=== PATIENT | male | born 1965 | race African-American/Black ===

== ENCOUNTER 2018-11-20 05:33 | Day surgery (SDC) | payer BC, SELFPAY ==
--- NOTE | 2018-09-28 06:28 | HP.PCM_ITS ---
History and Physical Date of Admission: 09/30/18 HISTORY AND PHYSICAL ? Toño Lima 1965 ? REFERRING PHYSICIAN: ??Adam Ralhp MD ? CHIEF COMPLAINT: ??Consult ? HPI: The patient is a 53 year old male referred for endoscopy. ?Toño notes occasional constipation, otherwise denies colon complaints. Patient denies any change in bowel habits, weight changes, blood in stools, black tarry stools or abdominal pain.??NOTES?family history of colon issues, states father had colon cancer. ?The patient notes no upper GI complaints. ? Toño?recalled having a prior colonoscopy in 2006, which was not mentioned in his surgical history in [facility]. ?Review of chart shows attempted colonoscopy in [address] Bennett, which could not be completed due to tortuosity of colon. ?That note mentions plans for a completion barium enema vs referral to another endoscopist, but patient states was not aware of this and denies further follow- up after that procedure. ?His past surgical history is now updated in [facility] to reflect the past attempted procedure. ? Patient's past medical history is significant for hypertension, hyperlipidemia, past history of gastritis and GERD, type II diabetes mellitus, obesity. ?He denies any cardiac or pulmonary complaints, and denies problems with sedation in the past other than recall with his prior attempted endoscopy procedure. ?Patient is a former smoker, no longer smokes or drinks alcohol. ? ? ? PAST?MEDICAL?HISTORY PAST MEDICAL HISTORY Diagnosis Date ? Esophagitis, unspecified ? ? Essential hypertension, benign ? ? Family history of malignant neoplasm of gastrointestinal tract ? ? family history of colon cancer ? Genital herpes ? ? Hemorrhage of rectum and anus ? ? Hypertrophy of breast ? ? Obesity, unspecified ? ? Other and unspecified alcohol dependence, unspecified drinking behavior ? ? ETOH depend. syn. ? Other and unspecified hyperlipidemia ? ? Type II or unspecified type diabetes mellitus without mention of complication, not stated as uncontrolled ? ? Unspecified gastritis and gastroduodenitis without mention of hemorrhage ? ? ? PAST?SURGICAL?HISTORY PAST SURGICAL HISTORY Procedure Laterality Date ? EGD W/O BRSH SPECIMEN W/BX ? 07/20/09 ? PAST SURGICAL HISTORY OF ?LLE cyst ? ? CURRENT?MEDICATIONS ? Current Outpatient Medications: atorvastatin (LIPITOR) 10 mg tablet Take 1 tablet by mouth daily at bedtime. For cholesterol. amLODIPine (NORVASC) 10 mg tablet Take 1 tablet by mouth once daily. metFORMIN (GLUCOPHAGE) 1,000 mg tablet Take 1 tablet by mouth daily with breakfast. lisinopril (ZESTRIL, PRINIVIL) 20 mg tablet Take 1 tablet by mouth once daily. OMEGA 3-VITAMIN E-FISH OIL 700 MG-15 UNIT-1,100 MG CAP Take one(1) tablet daily. ? No current facility-administered medications for this visit.? ? ALLERGIES:?H[place]elnut; Pecans [Other]; [place] ? PERSONAL HISTORY:? SOCIAL?HISTORY Social History ??Socioeconomic History ?Marital status: ?Spouse name: Florencia ?Number of children: 5 ?Years of education: Not on file ?Highest education level: Not on file ??Occupational History ?Employer: [employer] ??Social Needs ?Financial resource strain: Not on file ?Food insecurity: ?Worry: Not on file ?Inability: Not on file ?Transportation needs: ?Medical: Not on file ?Non-medical: Not on file ??Tobacco Use ?Smoking status: Former Smoker ?Quit date: 12/06/1992 ?Years since quittin.7 ?Smokeless tobacco: Never Used ??Substance and Sexual Activity ?Alcohol use: No ?Drug use: No ?Sexual activity: Yes ??Lifestyle ?Physical activity: ?Days per week: Not on file ?Minutes per session: Not on file ?Stress: Not on file ??Relationships ?Social connections: ?Talks on phone: Not on file ?Gets together: Not on file ?Attends baptism service: Not on file ?Active member of club or organization: Not on file ?Attends meetings of clubs or organizations: Not on file ?Relationship status: Not on file ?Intimate partner violence: ?Fear of current or ex partner: Not on file ?Emotionally abused: Not on file ?Physically abused: Not on file ?Forced sexual activity: Not on file ??Other Topics ?Concerns: ?Not on file ??Social History Narrative ?Not on file ? FAMILY HISTORY:? FAMILY?HISTORY FAMILY HISTORY Problem Relation Age of Onset ? Diabetes Mother ? ? Diabetes Father ? ? Colon Cancer Father ? ? REVIEW OF SYMPTOMS: ??The review of systems data was entered by the nurse and reviewed by me ? Nursing Notes: Tyler Patrice ?09/16/2018 ?4:45 PM ?Signed REVIEW OF SYSTEMS: ?General:???The patient denies fatigue, denies weight loss, denies weight gain, denies feeling hot, and denies feelings of cold. ?Eyes: ?The patient denies glaucoma, denies eye injury/surgery, wears glasses or contacts. ?Ear/Nose/Throat: ?The patient NOTES allergies, denies hayfever, denies ear infections, and denies bloody noses. ?Cardiovascular: ?The patient denies chest pain, denies heart disease, denies high blood pressure,denies cardiac stent, denies prior heart attack, denies irregular heart beat, denies high cholesterol, ?NOTES poor circulation, denies heart failure, other cardiac issues, denies claudication, denies cold feet, denies peripheral arterial stent. ?Respiratory: ?The patient denies tuberculosis, denies pneumonia, denies frequent cough, denies pulmonary embolism, denies shortness of breath, and denies coughing up blood. ?Gastrointestinal: ?The patient denies difficulty swallowing, denies acid reflux, denies ulcers, denies vomiting, denies jaundice/hepatitis, denies gallbladder problems, denies black or tarry stools, denies hemorrhoids, denies bleeding from rectum, denies diverticulitis, NOTES constipation, denies diarrhea, denies loss of stool control, and denies hernias. ?Kidney/Bladder: ?The patient denies kidney stones, denies urine infections, and denies bloody urine. ?Skin: ?The patient denies a history of skin cancer, denies bleeding/changing moles, and NOTES a history of skin rash. ?Neurologic: ?The patient denies a history of epilepsy/convulsions, denies headaches, denies head/spinal injuries, and denies stroke/TIA. ?Psychiatric: ?The patient denies psychiatric medications, denies depression, and denies voices, denies substance abuse. ?Endocrine: ?The patient denies thyroid disorders, NOTES diabetes, and denies hormonal problems. ?Hematologic: ?The patient denies a history of bruising, denies bleeding, and denies anemia, denies blood clots. ?Infections: ?The patient denies a history of measles and mumps, denies rheumatic fever, and denies sexually transmitted diseases. ?Musculoskeletal: ?The patient denies back pain/injury, denies back problems, denies sciatica, denies knee/foot trouble, denies arthritis, or denies gout. ? ? When was patient's last Mammogram screening? N/A ? ?Last Colonoscopy: ?2006 ? ? Tyler Ibrahim? I have confirmed and edited as necessary, the PFSH and ROS obtained by others. ? ? PHYSICAL EXAMINATION: ? General: ?The patient is 53 year old male, well nourished, well hydrated in no acute distress. ?The patient is oriented to time, place, and person. ? VITALS:?Blood pressure 144/88, pulse 85, temperature 36.3 ?C (97.3 ?F), temperature source Temporal Artery, height 185.4 cm (6' 1), weight 126.3 kg (278 lb 6.4 oz), SpO2 98 %.?Body mass index is 36.73 kg/m?.? ? HEENT: ?Normal cephalic, ataumatic, pupils are equally round, sclera are anicteric, mucous membranes are moist, oropharynx is clear. ?Neck has no masses, asymmetry or lymphadenopathy. ? ? Respiratory: ?Clear to auscultation and percussion. ?Normal respiratory excursion and pattern. ? Cardiac: ?Examination is regular rate and rhythm. ?Normal S1/S2 ? Abdominal exam: ?Soft, nontender, ?with no palpable masses. ?No hepatosplenomegaly. ?No palpable hernias. ? Extremities: ?no clubbing, cyanosis or edema. ?No adenopathy. ? LABORATORY VALUES: As Noted ? RADIOLOGIC STUDIES: ?As Noted ? ? Assessment ? IMPRESSION:?encounter for screening colonoscopy, history of tortuous colon with prior incomplete colonoscopy attempt, family history of colon cancer ? PLAN: ?I have reviewed my findings with the surgeon. ?Will plan for lower?endoscopy. ??We discussed the risks and benefits of the planned endoscopy. ?I have informed the patient that complications can occur including failure to complete the endoscopy and perforation. ?The patient had the opportunity to ask questions concerning the planned endoscopy. ?My staff has also explained the procedure to the patient in understandable terms and has given the patient printed material concerning the procedure. ?The patient freely consents to surgery. ? I plan to use?Golytely?bowel preparation ? We will plan for Monitored Anesthetic Care.?due to tortuous colon and recall from prior procedure ? ? Diagnoses:?(Z12.11) Encounter for screening for malignant neoplasm of colon ?(primary encounter diagnosis) (Z80.0) Family history of colon cancer (Q43.8) Tortuous colon ? ? Aparna Rojas PA-C
[2018-11-20 05:56] VITALS: BP 153/83; PULSE 86; RESP 16; TEMP 36.1; O2SAT 100; BMI 36.6
[2018-11-20] MEDS: Lactated Ringers 1,000 ML 75 ML IV (06:43)
[2018-11-20 07:30] VITALS: BP 115/70; BP 153/83; PULSE 71; RESP 16; TEMP 36.8; O2SAT 99
--- NOTE | 2018-11-20 07:32 | OP.ENDO_ITS ---
11/20/2018 Adam Ralph [address] [place] [address] Re : Colonoscopy procedure for Toño Lima Dear Dr. Ralph This procedure was performed on Tuesday, November 20, 2018. My impressions and recommendations are as follows: Impressions : - Preparation of the colon was fair. - The entire examined colon is normal on direct and retroflexion views. - No specimens collected. Recommendations : - Discharge patient to home. - Resume previous diet. - Continue present medications. - Repeat colonoscopy in 10 years for screening purposes. My findings are described in the full procedure note, which is enclosed. If I can be of further assistance, please feel free to contact me at Doctor phone number(s): , Work: . Sincerely, Dieudonne Chong MD 11/20/2018 7:32:21 AM This report has been signed electronically.
[2018-11-20 07:35] VITALS: BP 123/78; BP 153/83; PULSE 67; RESP 18; O2SAT 100
[2018-11-20 07:40] VITALS: BP 115/86; BP 153/83; PULSE 66; RESP 18; O2SAT 100
[2018-11-20 07:45] VITALS: BP 117/71; BP 153/83; PULSE 66; RESP 18; TEMP 36.7; O2SAT 100
[2018-11-20 08:30] VITALS: BP 153/83
== END 2018-11-20 08:30 | disposition home or self-care (01) ==
LOC: EN 05:34 → AC 05:37
PROVIDERS: Family Provider Family Medicine; PCP Family Medicine; Referring Provider Family Medicine; Visit Provider Surgery
PROC: 0DJD8ZZ Inspection of Lower Intestinal Tract, Via Natural or Artificial Opening Endoscopic (ICD-10-PCS; CPT 45378; principal; 2018-11-20 06:25)
DX: Z12.11 Encounter for screening for malignant neoplasm of colon (principal); K59.00 Constipation, unspecified; I10 Essential (primary) hypertension; E78.5 Hyperlipidemia, unspecified; E11.9 Type 2 diabetes mellitus without complications; K21.9 Gastro-esophageal reflux disease without esophagitis; K21.0 Gastro-esophageal reflux disease with esophagitis; Z80.0 Family history of malignant neoplasm of digestive organs; Z87.891 Personal history of nicotine dependence; Z79.84 Long term (current) use of oral hypoglycemic drugs; Z79.899 Other long term (current) drug therapy
CPT/HCPCS: 45378; J7120; J2405

== ENCOUNTER 2019-09-04 13:30 | Outpatient (RCR) | payer BC, SELFPAY ==
[2019-08-21 14:15] VITALS: BP 133/83; PULSE 66; RESP 20; TEMP 36.7; BMI 36.8
--- NOTE | 2019-08-21 17:01 | PCM.WC.HP ---
(1) Nonhealing ulcer of left lower extremity with fat layer exposed Status: Acute Current Visit: Yes Code(s): L97.922 - Non-pressure chronic ulcer of unspecified part of left lower leg with fat layer exposed (2) PVD (peripheral vascular disease) Status: Acute Current Visit: Yes Code(s): I73.9 - Peripheral vascular disease, unspecified (3) Diabetes Status: Acute Current Visit: Yes Code(s): E11.9 - Type 2 diabetes mellitus without complications (4) Hypertension Status: Chronic Current Visit: Yes Code(s): I10 - Essential (primary) hypertension History of Present Illness Date of Service: 08/21/19 Chief Complaint: Nonhealing ulcer left lower extremity x3 weeks History of Wound: This is a 54-year-old male who presents to the wound healing center today with complaint of nonhealing ulceration to the left lower extremity x3 weeks. He has a past medical history as listed above. The patient states that he is unclear if he injured his left lower extremity, however noticed an open ulceration approximately 3 weeks ago. He is unclear whether or not there is ever an injury. He does state that he has had issues with nonhealing wounds to his lower legs in the past and that he has had varicose vein ablations. He does have a history of PVD. He has been covering the site with antibiotic ointment and gauze without much improvement. He denies any systemic or localized signs of infection at this time. Denies any other aggravating relieving factors. All other systems reviewed and negative with exception of those listed above. Past Medical History Past Medical History: Chronic Problems Hypertension (Chronic) Allergies/Adverse Reactions: Allergies nut - unspecified Allergy (Verified 08/21/19 14:35) Anaphylaxis PECANS Allergy (Uncoded 11/19/18 09:50) Anaphylaxis Home Medications: Ambulatory Orders Medication Instructions Recorded Amlodipine [Norvasc] 10 mg PO DAILY 04/12/15 Lisinopril [Zestril] 20 mg PO DAILY 04/12/15 Atorvastatin Calcium [Lipitor] 10 mg PO QHS 11/19/18 Smoking Status: Former smoker Review of Systems Constitutional: Denies: Chills, Fever, Weight Change Eyes: Denies: Pain, Vision Change HEENT: Denies: Difficulty Hearing, Difficulty Swallowing, Sinus Congestion Cardiovascular: Denies: Chest Pain, Palpitations Respiratory: Denies: Cough, Shortness of Breath Gastrointestinal: Denies: Diarrhea, Nausea, Vomiting Genitourinary: Denies: Dysuria, Hematuria Skin: Reports: Wounds - See HPI Endocrine: Denies: Heat/ Cold Intolerance, Polydipsia, Polyuria Hematologic/ Lymphatic: Denies: Easy Bruising, Easy Bleeding - Physical Exam Vital Signs Temp Pulse Resp BP 98.1 F 66 20 H 133/83 H 08/21/19 14:15 08/21/19 14:15 08/21/19 14:15 08/21/19 14:15 General: Alert, Oriented x3, Cooperative, No apparent distress HEENT: Atraumatic, PERRLA, EOMI Neck: Supple, No JVD Lungs: Clear to auscultation, Normal air movement, No rhonchi, No wheeze Cardiovascular: Regular rate, Regular Rhythm Abdomen: Soft, Non Tender Extremities: Capillary Refill Less than 3 Seconds, Edema - +1 bilateral lower extremity edema, Peripheral Pulses Normal Skin: Ulcer/ Wound - Nonhealing ulceration present to left lower extremity with adherent slough, no purulent drainage though site is very tender on exam Wound Measurements and Assessment WC - Nurse 1 - General Ulcer Measurement Start: 08/21/19 14:06 Freq: Status: Active Protocol: Activity Type Activity Date Activity User E-Sign Co-Sign Detail Recorded Client Recorded Date Recorded By Document 08/21/19 14:15 DL [id number] 08/21/19 14:33 DL 08/21/19 14:15 Wound Center Nurse 1 [Ulcer Assessment] #1 L Med LE -Current Size (cm) - Length 2 -Current Size (cm) - Width 3.8 -Current Size (cm) - Depth 0.1 -Total Square Cm 7.6 -Photo Taken Yes -Exudate Amt Small -Exudate Type Serosanguineous -Wound Margin Distinct, Outline Attached -Granulation Amt Medium (34-66%) -Granulation Quality Red -Necrosis Amt Medium (34-66%) -Necrotic Tissue Type Adherent Slough -Structure Exposed N/A -Texture (Charissa-wound Skin Appearance) Localized Edema ,Scarring -Moisture (Charissa-wound Skin Appearance Dry/Scaly ) -Color (Charissa-wound Skin Appearance) Hemosiderin Staining -Temperature (Charissa-wound Skin No Abnormality Appearance) (Pt Warm) -Tenderness on Palpation (Charissa-wound No Skin Appearance) -Ulcer Cleansing Wound Cleanser -Foul Odor after Cleansing No -Anesthetic Used 4% Lidocaine Solution [Edema Assessment] -Right Calf (cm) 41 -Right Ankle (cm) 23.5 -Left Calf (cm) 41 -Left Ankle (cm) 26 WC - Nurse 2 - General Ulcer CM Notes Start: 08/21/19 14:06 Freq: Status: Active Protocol: Activity Type Activity Date Activity User E-Sign Co-Sign Detail Recorded Client Recorded Date Recorded By Document 08/21/19 15:06 MW [id number] 08/21/19 15:15 MW 08/21/19 15:06 Wound Center Nurse 2 [Procedure/Treatment] #1 L Med LE -Time 15:06 -Correct Patient Yes -Correct Side, Site, Position Yes -Correct Procedure Yes -Procedure Performed Yes -Type of Procedure Debridement -Clinical Debridement Subcutaneous -Post Debridement Size (cm) - Length 3.0 -Post Debridement Size (cm) - Width 4.5 -Post Debridement Size (cm) - Depth 0.2 -Total Square Cm 13.50 -Wound/Ulcer Outcome Not Healed -Ulcer Cleansing Rinsed/ Irrigated with Saline -Foul Odor after Cleansing No -Bioengineered Tissue No -Bleeding Controlled with Pressure -Offloading No -Treatment Response Procedure Tolerated Well [See Physician Procedure note for Specifics] Pain Scale: 0-10 Numeric [Pain] -Is Patient Pain Free? Yes Musculoskeletal: No Tenderness to Palpation of Joints or Extremities, No Muscle Wasting Neurological: Neuro grossly intact Psych/Mental Status: Normal Affect, Appropriate, Alert and oriented to time, place, person, mood and affect Debridement Note Post-Debridement Measurements/Treatment WC - Nurse 2 - General Ulcer CM Notes Start: 08/21/19 14:06 Freq: Status: Active Protocol: Activity Type Activity Date Activity User E-Sign Co-Sign Detail Recorded Client Recorded Date Recorded By Document 08/21/19 15:06 MW [id number] 08/21/19 15:15 MW 08/21/19 15:06 Wound Center Nurse 2 #1 L Med LE -Time 15:06 -Correct Patient Yes -Correct Side, Site, Position Yes -Correct Procedure Yes -Procedure Performed Yes -Type of Procedure Debridement -Clinical Debridement Subcutaneous -Post Debridement Size (cm) - Length 3.0 -Post Debridement Size (cm) - Width 4.5 -Post Debridement Size (cm) - Depth 0.2 -Total Square Cm 13.50 -Wound/Ulcer Outcome Not Healed -Ulcer Cleansing Rinsed/ Irrigated with Saline -Foul Odor after Cleansing No -Bioengineered Tissue No -Bleeding Controlled with Pressure -Offloading No -Treatment Response Procedure Tolerated Well Pain Scale: 0-10 Numeric Is Patient Pain Free? Yes Wound debrided: Left lower extremity venous leg ulcer Laterality: Left Type of Debridement: Excisional debridement Anesthesia Used: 5% Lidocaine Gel Depth: Down to and including healthy tissue, in the subcutaneous layer Percentage of wound debrided: 100 Instrument Used: 5mm curette Tissue Removed: Slough and devitalized tissue Severity: Fat Layer Exposed Amount of bleeding with debridement: Mild Bleeding Controlled with: Pressure Patient tolerated procedure well Assessment/Plan Active Problems PVD (peripheral vascular disease) (Acute) Nonhealing ulcer of left lower extremity with fat layer exposed (Acute) Diabetes (Acute) Hypertension (Chronic) Assessment: See above diagnoses Plan: The patient was seen and examined at the wound center today and was updated on the plan of care. A subcutaneous debridement was performed today. The patient tolerated the procedure well. The patients wound care will consist of: Application of silver cell moistened cover with gauze change daily, double layer Tubigrip's for compression. Wound cultures were collected today. Baseline bloodwork and vascular studies will be held at this time, reconsider if no significant wound improvement. Patient educated on the importance of diet on wound healing and instructed to increase protein and vitamin C intake. Patient verbalized understanding. given the delayed wound healing will apply for puraply AM and after 4 weeks of standard wound care will apply for advanced skin substitute if necessary. Patient has been advised to elevate lower extremities as much as possible. Elevation is to be implemented during daytime hours and legs are to be elevated to heart level, or higher, as much as possible. Prolonged idle sitting has been discouraged. Activity and ambulation has been encouraged. Patient will follow up at wound healing center in one week or sooner if needed. This note was generated with [employer]ation software. It may contain incorrect words, spelling, and punctuation that were not noted in checking the note before signing. Office Visits / Consults: [id number] OV L4 New [id number]: [id number] Iman subq tissue 20 sq cm/<
[2019-08-28 13:22] VITALS: BP 143/79; PULSE 75; RESP 20; TEMP 36.9; BMI 36.8
--- NOTE | 2019-08-28 16:31 | PN.PCM_ITS ---
(1) Venous stasis ulcer of left lower leg with edema of left lower leg Status: Acute Current Visit: Yes Code(s): I83.029 - Varicose veins of left lower extremity with ulcer of unspecified site; I83.892 - Varicose veins of left lower extremity with other complications; L97.929 - Non-pressure chronic ulcer of unspecified part of left lower leg with unspecified severity; R60.9 - Edema, unspecified Comment: fat layer exposed (2) Nonhealing ulcer of left lower extremity with fat layer exposed Status: Acute Current Visit: Yes Code(s): L97.922 - Non-pressure chronic ulcer of unspecified part of left lower leg with fat layer exposed (3) PVD (peripheral vascular disease) Status: Acute Current Visit: Yes Code(s): I73.9 - Peripheral vascular disease, unspecified (4) Diabetes Status: Acute Current Visit: Yes Code(s): E11.9 - Type 2 diabetes mellitus without complications (5) Hypertension Status: Chronic Current Visit: Yes Code(s): I10 - Essential (primary) hypertension Type of Wound Date of Service: 08/28/19 Chief Complaint: Nonhealing ulcer left lower extremity x4 weeks History of Wound: This is a 54-year-old male who presents to the wound healing center today with complaint of nonhealing ulceration to the left lower extremity x4 weeks. He has a past medical history as listed above. The patient states that he is unclear if he injured his left lower extremity, h owever noticed an open ulceration approximately 3 weeks ago. He is unclear whether or not there is ever an injury. He does state that he has had issues with nonhealing wounds to his lower legs in the past and that he has had varicose vein ablations. He does have a history of PVD. He has been covering the site with antibiotic ointment and gauze without much improvement. He denies any systemic or localized signs of infection at this time. Denies any other aggravating relieving factors. All other systems reviewed and negative with exception of those listed above. Progress of Wound: 08/28/2019?wound cultures were reviewed and showed Citrobacter and anaerobic bacteria, patient was previously placed on ciprofloxacin and Augmentin and instructed on starting a probiotic. Unfortunately he only picked up this ciprofloxacin. States that wound is still painful, overall wound size is improving however. - Physical Exam Vital Signs Temp Pulse Resp BP 98.4 F 75 20 H 143/79 H 08/28/19 13:22 08/28/19 13:22 08/28/19 13:22 08/28/19 13:22 General: Alert, Oriented x3, Cooperative, No apparent distress HEENT: Atraumatic Oral: Moist Mucosa Lungs: Clear to auscultation, Normal air movement Cardiovascular: Regular rate Abdomen: Soft, Non Tender, Obese Extremities: No clubbing, No cyanosis, Edema - Generalized bilateral lower extremity edema, Peripheral Pulses Normal Skin: Ulcer/ Wound - Ulceration to left lower extremity with adherent slough, no signs of obvious infection at this time, site is tender to touch no warmth or streaking noted Wound Measurements and Assessment WC - Nurse 1 - General Ulcer Measurement Start: 08/21/19 14:06 Freq: Status: Active Protocol: Activity Type Activity Date Activity User E-Sign Co-Sign Detail Recorded Client Recorded Date Recorded By Document 08/28/19 13:22 DL [id number] 08/28/19 13:29 DL 08/28/19 13:22 Wound Center Nurse 1 [Ulcer Assessment] #1 L Med LE -Current Size (cm) - Length 2.2 -Current Size (cm) - Width 2.4 -Current Size (cm) - Depth 0.2 -Total Square Cm 5.28 -Photo Taken No -Exudate Amt Small -Exudate Type Serosanguineous -Wound Margin Distinct, Outline Attached -Granulation Amt Small (1-33%) -Granulation Quality [place] -Necrosis Amt Large (67-100%) -Necrotic Tissue Type Adherent Slough -Structure Exposed N/A -Texture (Charissa-wound Skin Appearance) Scarring -Moisture (Charissa-wound Skin Appearance No Abnormality, ) Dry/Scaly -Color (Charissa-wound Skin Appearance) Hemosiderin Staining -Temperature (Charissa-wound Skin No Abnormality Appearance) (Pt Warm) -Tenderness on Palpation (Charissa-wound No Skin Appearance) -Ulcer Cleansing Rinsed/ Irrigated with Saline -Foul Odor after Cleansing No -Anesthetic Used 4% Lidocaine Solution [Edema Assessment] -Left Calf (cm) 39.3 -Left Ankle (cm) 24.5 WC - Nurse 2 - General Ulcer CM Notes Start: 08/21/19 14:06 Freq: Status: Active Protocol: Activity Type Activity Date Activity User E-Sign Co-Sign Detail Recorded Client Recorded Date Recorded By Document 08/28/19 14:07 PL [id number] 08/28/19 14:08 PL 08/28/19 14:07 Wound Center Nurse 2 [Procedure/Treatment] #1 L Med LE -Time 14:04 -Correct Patient Yes -Correct Side, Site, Position Yes -Correct Procedure Yes -Procedure Performed Yes -Type of Procedure Debridement -Clinical Debridement Subcutaneous -Post Debridement Size (cm) - Length 2.5 -Post Debridement Size (cm) - Width 2.5 -Post Debridement Size (cm) - Depth 0.2 -Total Square (cm) 6.25 -Wound/Ulcer Outcome Not Healed -Ulcer Cleansing Rinsed/ Irrigated with Saline -Foul Odor after Cleansing No -Bleeding Controlled with Pressure -Treatment Response Procedure Tolerated Well [See Physician Procedure note for Specifics] Pain Scale: 0-10 Numeric [Pain] -Is Patient Pain Free? Yes Neurological: Neuro grossly intact Psych/Mental Status: Normal Affect, Appropriate, Alert and oriented to time, place, person, mood and affect Debridement Note Post-Debridement Measurements/Treatment WC - Nurse 2 - General Ulcer CM Notes Start: 08/21/19 14:06 Freq: Status: Active Protocol: Activity Type Activity Date Activity User E-Sign Co-Sign Detail Recorded Client Recorded Date Recorded By Document 08/21/19 15:06 MW [id number] 08/21/19 15:15 MW Document 08/28/19 14:07 PL [id number] 08/28/19 14:08 PL 08/21/19 08/28/19 15:06 14:07 Wound Center Nurse 2 #1 L Med LE -Time 15:06 14:04 -Correct Patient Yes Yes -Correct Side, Site, Position Yes Yes -Correct Procedure Yes Yes -Procedure Performed Yes Yes -Type of Procedure Debridement Debridement -Clinical Debridement Subcutaneous Subcutaneous -Post Debridement Size (cm) - Length 3.0 2.5 -Post Debridement Size (cm) - Width 4.5 2.5 -Post Debridement Size (cm) - Depth 0.2 0.2 -Total Square (cm) 13.50 6.25 -Wound/Ulcer Outcome Not Healed Not Healed -Ulcer Cleansing Rinsed/ Rinsed/ Irrigated with Irrigated with Saline Saline -Foul Odor after Cleansing No No -Bioengineered Tissue No -Bleeding Controlled with Pressure Pressure -Offloading No -Treatment Response Procedure Procedure Tolerated Well Tolerated Well Pain Scale: 0-10 Numeric Is Patient Pain Free? Yes Yes Wound debrided: Left venous leg ulcer Laterality: Left Type of Debridement: Excisional debridement Anesthesia Used: 5% Lidocaine Gel Depth: Down to and including healthy tissue, in the subcutaneous layer Percentage of wound debrided: 100 Instrument Used: 5mm curette Tissue Removed: Slough and devitalized tissue Severity: Fat Layer Exposed Amount of bleeding with debridement: Mild Bleeding Controlled with: Pressure Patient tolerated procedure well Assessment/Plan Active Problems PVD (peripheral vascular disease) (Acute) Nonhealing ulcer of left lower extremity with fat layer exposed (Acute) Diabetes (Acute) Hypertension (Chronic) Venous stasis ulcer of left lower leg with edema of left lower leg (Acute) fat layer exposed Assessment: See above diagnoses Plan: The patient was seen and examined at the wound center today and was updated on the plan of care. A subcutaneous debridement was performed today. The patient tolerated the procedure well. The patients wound care will consist of: Application of silver cell moistened cover with gauze change daily, double layer Tubigrip's for compression. Wound cultures were collected by her and reviewed with the patient, he was instructed to take both of his antibiotics and take his probiotic. Baseline bloodwork and vascular studies will be held at this time, reconsider if no significant wound improvement. Patient educated on the importance of diet on wound healing and instructed to increase protein and vitamin C intake. Patient verbalized understanding. given the delayed wound healing and venous component of his ulcer in fact that it has been now more than 4 weeks with out substantial improvement, will apply for advanced skin substitute . Patient has been advised to elevate lower extremities as much as possible. Elevation is to be implemented during daytime hours and legs are to be elevated to heart level, or higher, as much as possible. Prolonged idle sitting has been discouraged. Activity and ambulation has been encouraged. Patient will follow up at wound healing center in one week or sooner if needed. This note was generated with [employer] dictation software. It may contain incorrect words, spelling, and punctuation that were not noted in checking the note before signing. [id number]: [id number] Iman subq tissue 20 sq cm/<
[2019-09-04 13:46] VITALS: BP 139/86; PULSE 98; RESP 18; TEMP 36.3; O2SAT 97; BMI 36.8
--- NOTE | 2019-09-04 18:49 | PN.PCM_ITS ---
(1) Venous stasis ulcer of left lower leg with edema of left lower leg Status: Acute Code(s): I83.029 - Varicose veins of left lower extremity with ulcer of unspecified site; I83.892 - Varicose veins of left lower extremity with other complications; L97.929 - Non-pressure chronic ulcer of unspecified part of left lower leg with unspecified severity; R60.9 - Edema, unspecified Comment: fat layer exposed (2) Nonhealing ulcer of left lower extremity with fat layer exposed Status: Acute Code(s): L97.922 - Non-pressure chronic ulcer of unspecified part of left lower leg with fat layer exposed (3) PVD (peripheral vascular disease) Status: Acute Code(s): I73.9 - Peripheral vascular disease, unspecified (4) Diabetes Status: Acute Code(s): E11.9 - Type 2 diabetes mellitus without complications (5) Hypertension Status: Chronic Code(s): I10 - Essential (primary) hypertension Type of Wound Date of Service: 09/04/19 Chief Complaint: Nonhealing ulcer left lower extremity x4 weeks History of Wound: This is a 54-year-old male who presents to the wound healing center today with complaint of nonhealing ulceration to the left lower extremity x4 weeks. He has a past medical history as listed above. The patient states that he is unclear if he injured his left lower extremity, however noticed an open ulceration approximately 3 weeks ago. He is unclear whether or not there is ever an injury. He does state that he has had issues with nonhealing wounds to his lower legs in the past and that he has had uriel icose vein ablations. He does have a history of PVD. He has been covering the site with antibiotic ointment and gauze without much improvement. He denies any systemic or localized signs of infection at this time. Denies any other aggravating relieving factors. All other systems reviewed and negative with exception of those listed above. Progress of Wound: 08/28/2019?wound cultures were reviewed and showed Citrobacter and anaerobic bacteria, patient was previously placed on ciprofloxacin and Augmentin and instructed on starting a probiotic. Unfortunately he only picked up this ciprofloxacin. States that wound is still painful, overall wound size is improving however. 09/03- site still painful, otherwise no new concerns, repeat cultures today - Physical Exam Vital Signs Temp Pulse Resp BP Pulse Ox 97.4 F L 98 18 139/86 H 97 09/04/19 13:46 09/04/19 13:46 09/04/19 13:46 09/04/19 13:46 09/04/19 13:46 General: Alert, Oriented x3, Cooperative, No apparent distress HEENT: Atraumatic Oral: Moist Mucosa Lungs: Clear to auscultation Cardiovascular: Regular rate Abdomen: Soft, Non Tender, Obese Extremities: No clubbing, No cyanosis, Edema - generalized BLLE edema, Peripheral Pulses Normal Skin: Ulcer/ Wound - ulceration to left lower extremity with adherant slough, no signs of infection at this time Wound Measurements and Assessment WC - Nurse 2 - General Ulcer CM Notes Start: 08/21/19 14:06 Freq: Status: Active Protocol: Activity Type Activity Date Activity User E-Sign Co-Sign Detail Recorded Client Recorded Date Recorded By Document 09/04/19 14:34 MW [id number] 09/04/19 14:38 MW 09/04/19 14:34 Wound Center Nurse 2 [Procedure/Treatment] #1 L Med LE -Time 14:34 -Correct Patient Yes -Correct Side, Site, Position Yes -Correct Procedure Yes -Procedure Performed Yes -Type of Procedure Debridement -Clinical Debridement Subcutaneous -Post Debridement Size (cm) - Length 2.6 -Post Debridement Size (cm) - Width 2.6 -Post Debridement Size (cm) - Depth 0.2 -Total Square (cm) 6.76 -Wound/Ulcer Outcome Not Healed -Ulcer Cleansing Rinsed/ Irrigated with Saline -Foul Odor after Cleansing No -Bioengineered Tissue No -Bleeding Controlled with Pressure -Offloading No -Treatment Response Procedure Tolerated Well [See Physician Procedure note for Specifics] Musculoskeletal: No Tenderness to Palpation of Joints or Extremities Neurological: Neuro grossly intact Psych/Mental Status: Normal Affect, Appropriate, Alert and oriented to time, place, person, mood and affect Debridement Note Post-Debridement Measurements/Treatment WC - Nurse 2 - General Ulcer CM Notes Start: 08/21/19 14:06 Freq: Status: Active Protocol: Activity Type Activity Date Activity User E-Sign Co-Sign Detail Recorded Client Recorded Date Recorded By Document 08/21/19 15:06 MW [id number] 08/21/19 15:15 MW Document 08/28/19 14:07 PL [email or web address] 08/28/19 14:08 PL Document 09/04/19 14:34 MW [id number] 09/04/19 14:38 MW 08/21/19 08/28/19 09/04/19 15:06 14:07 14:34 Wound Center Nurse 2 #1 L Med LE -Time 15:06 14:04 14:34 -Correct Patient Yes Yes Yes -Correct Side, Site, Position Yes Yes Yes -Correct Procedure Yes Yes Yes -Procedure Performed Yes Yes Yes -Type of Procedure Debridement Debridement Debridement -Clinical Debridement Subcutaneous Subcutaneous Subcutaneous -Post Debridement Size (cm) - Length 3.0 2.5 2.6 -Post Debridement Size (cm) - Width 4.5 2.5 2.6 -Post Debridement Size (cm) - Depth 0.2 0.2 0.2 -Total Square (cm) 13.50 6.25 6.76 -Wound/Ulcer Outcome Not Healed Not Healed Not Healed -Ulcer Cleansing Rinsed/ Rinsed/ Rinsed/ Irrigated with Irrigated with Irrigated with Saline Saline Saline -Foul Odor after Cleansing No No No -Bioengineered Tissue No No -Bleeding Controlled with Pressure Pressure Pressure -Offloading No No -Treatment Response Procedure Procedure Procedure Tolerated Well Tolerated Well Tolerated Well Pain Scale: 0-10 Numeric Is Patient Pain Free? Yes Yes Wound debrided: VLU left lower extremity Laterality: Left Type of Debridement: Excisional debridement Anesthesia Used: 5% Lidocaine Gel, - - 2 percent lidocain injection 2 ml Depth: Down to and including healthy tissue, in the subcutaneous layer Percentage of wound debrided: 100 Instrument Used: 5mm curette Tissue Removed: slough and devitalized tissue Severity: Fat Layer Exposed Amount of bleeding with debridement: Mild Bleeding Controlled with: Pressure Patient tolerated procedure well Assessment/Plan Assessment: See above diagnoses Plan: The patient was seen and examined at the wound center today and was updated on the plan of care. A subcutaneous debridement was performed today. The patient tolerated the procedure well. The patients wound care will consist of: Application of silver cell moistened cover with adaptic and 3m wrap for compression. Wound cultures were collected again today due to the continued pain, he previously completed both antibiotics and take his probiotic. Baseline bloodwork and vascular studies will be held at this time, reconsider if no significant wound improvement. Patient educated on the importance of diet on wound healing and instructed to increase protein and vitamin C intake. Patient verbalized understanding. given the delayed wound healing and venous component of his ulcer in fact that it has been now more than 4 weeks with out substantial improvement, will apply for advanced skin substitute . Patient has been advised to elevate lower extremities as much as possible. Elevation is to be implemented during daytime hours and legs are to be elevated to heart level, or higher, as much as possible. Prolonged idle sitting has been discouraged. Activity and ambulation has been encouraged. Patient will follow up at wound healing center in one week or sooner if needed. This note was generated with [employer] dictation software. It may contain incorrect words, spelling, and punctuation that were not noted in checking the note before signing. [id number]: [id number] Iman subq tissue 20 sq cm/<
== END 2019-09-05 23:59 ==
LOC: WC 13:30
PROVIDERS: PCP Family Medicine; Referring Provider Family Medicine; Visit Provider Nurse Practitioner Family
DX: L97.922 Non-pressure chronic ulcer of unspecified part of left lower leg with fat layer exposed (principal); I73.9 Peripheral vascular disease, unspecified; I10 Essential (primary) hypertension; E11.9 Type 2 diabetes mellitus without complications; Z87.891 Personal history of nicotine dependence; I83.029 Varicose veins of left lower extremity with ulcer of unspecified site; I83.892 Varicose veins of left lower extremity with other complications
CPT/HCPCS: 11042; 29581; 87070; 87075; 87077; 87186; 87205; 99213; G0463

== ENCOUNTER 2019-10-02 14:00 | Outpatient (RCR) | payer BC, SELFPAY ==
[2019-09-06 00:38] VITALS: BP 139/86; PULSE 98; RESP 18; TEMP 36.3; O2SAT 97
[2019-09-08 14:51] VITALS: BP 162/82; PULSE 93; RESP 16; TEMP 36.9; BMI 36.8
[2019-09-11 14:15] VITALS: BP 149/82; PULSE 84; RESP 20; TEMP 36.8; BMI 36.8
--- NOTE | 2019-09-12 07:57 | PN.PCM_ITS ---
(1) Venous stasis ulcer of left lower leg with edema of left lower leg Status: Acute Current Visit: Yes Code(s): I83.029 - Varicose veins of left lower extremity with ulcer of unspecified site; I83.892 - Varicose veins of left lower extremity with other complications; L97.929 - Non-pressure chronic ulcer of unspecified part of left lower leg with unspecified severity; R60.9 - Edema, unspecified Comment: fat layer exposed (2) Diabetes Status: Acute Current Visit: No Code(s): E11.9 - Type 2 diabetes mellitus without complications (3) Nonhealing ulcer of left lower extremity with fat layer exposed Status: Acute Current Visit: No Code(s): L97.922 - Non-pressure chronic ul cer of unspecified part of left lower leg with fat layer exposed (4) PVD (peripheral vascular disease) Status: Acute Current Visit: No Code(s): I73.9 - Peripheral vascular disease, unspecified (5) Hypertension Status: Chronic Current Visit: No Code(s): I10 - Essential (primary) hypertension Type of Wound Date of Service: 09/11/19 Chief Complaint: Nonhealing ulcer left lower extremity x4 weeks History of Wound: This is a 54-year-old male who presents to the wound healing center today with complaint of nonhealing ulceration to the left lower extremity x4 weeks. He has a past medical history as listed above. The patient states that he is unclear if he injured his left lower extremity, however noticed an open ulceration approximately 3 weeks ago. He is unclear whether or not there is ever an injury. He does state that he has had issues with nonhealing wounds to his lower legs in the past and that he has had varicose vein ablations. He does have a history of PVD. He has been covering the site with antibiotic ointment and gauze without much improvement. He denies any systemic or localized signs of infection at this time. Denies any other aggravating relieving factors. All other systems reviewed and negative with exception of those listed above. Progress of Wound: 08/28/2019?wound cultures were reviewed and showed Citrobacter and anaerobic bacteria, patient was previously placed on ciprofloxacin and Augmentin and instructed on starting a probiotic. Unfortunately he only picked up this ciprofloxacin. States that wound is still painful, overall wound size is improving however. 09/11/2019?wound cultures were reviewed and showed Citrobacter and anaerobic bacteria again, patient placed back on Cipro and Augmentin which was sensitive, also advised to continue with probiotic. Patient still notes pain in his wound. First application of Apligraf today, tolerated the 3M wraps well.FMLA forms to be filled out as patient cannot work on his feet due to the pain from the wound. He will be released to work once his wound is healed and or his pain diminishes. - Physical Exam Vital Signs Temp Pulse Resp BP Pulse Ox 98.3 F 84 20 H 149/82 H 97 09/11/19 14:15 09/11/19 14:15 09/11/19 14:15 09/11/19 14:15 09/06/19 00:38 General: Alert, Oriented x3, Cooperative, No apparent distress HEENT: Atraumatic Oral: Moist Mucosa Lungs: Clear to auscultation, Normal air movement Cardiovascular: Regular rate, Regular Rhythm, Normal S1, Normal S2 Abdomen: Soft, Non Tender Extremities: No clubbing, No cyanosis, No edema, Peripheral Pulses Normal Skin: Ulcer/ Wound - Nonhealing ulcer to left lower extremity with no signs of obviousInfection at this time Wound Measurements and Assessment WC - Nurse 1 - General Ulcer Measurement Start: 09/08/19 14:51 Freq: Status: Active Protocol: Activity Type Activity Date Activity User E-Sign Co-Sign Detail Recorded Client Recorded Date Recorded By Document 09/11/19 14:15 DL [id number] 09/11/19 14:24 DL 09/11/19 14:15 Wound Center Nurse 1 [Ulcer Assessment] #1 L Med LE -Current Size (cm) - Length 2.5 -Current Size (cm) - Width 2.2 -Current Size (cm) - Depth 0.1 -Total Square Cm 5.50 -Photo Taken No -Exudate Amt Small -Exudate Type Serosanguineous -Wound Margin Distinct, Outline Attached -Granulation Amt Medium (34-66%) -Granulation Quality Pale,West Line -Necrosis Amt Medium (34-66%) -Necrotic Tissue Type Adherent Slough -Structure Exposed N/A -Texture (Charissa-wound Skin Appearance) Scarring -Moisture (Charissa-wound Skin Appearance No Abnormality ) -Color (Charissa-wound Skin Appearance) Hemosiderin Staining -Temperature (Charissa-wound Skin No Abnormality Appearance) (Pt Warm) -Tenderness on Palpation (Charissa-wound No Skin Appearance) -Ulcer Cleansing Wound Cleanser -Foul Odor after Cleansing No -Anesthetic Used 4% Lidocaine Solution [Edema Assessment] -Left Calf (cm) 37 -Left Ankle (cm) 22.3 WC - Nurse 2 - General Ulcer CM Notes Start: 09/08/19 14:51 Freq: Status: Active Protocol: Activity Type Activity Date Activity User E-Sign Co-Sign Detail Recorded Client Recorded Date Recorded By Document 09/11/19 14:51 MW [id number] 09/11/19 14:58 MW 09/11/19 14:51 Wound Center Nurse 2 [Procedure/Treatment] #1 L Med LE -Time 14:51 -Correct Patient Yes -Correct Side, Site, Position Yes -Correct Procedure Yes -Procedure Performed Yes -Type of Procedure Debridement -Clinical Debridement Subcutaneous -Post Debridement Size (cm) - Length 2.5 -Post Debridement Size (cm) - Width 3.0 -Post Debridement Size (cm) - Depth 0.2 -Total Square (cm) 7.50 -Wound/Ulcer Outcome Not Healed -Ulcer Cleansing Rinsed/ Irrigated with Saline -Foul Odor after Cleansing No -Bioengineered Tissue Yes -Type of bioengineered Tissue Apligraf -Expiration Date 09/18/19 -Product Lot Number [id number] -Percent Used 100 -Saline Lot Number [id number] -Injectable Lidocaine (%) 2 -Lidocaine (ml) 5 -Bleeding Controlled with Pressure -Offloading No -Treatment Response Procedure Tolerated Well [See Physician Procedure note for Specifics] Pain Scale: 0-10 Numeric [Pain] -Is Patient Pain Free? Yes Neurological: Neuro grossly intact Psych/Mental Status: Normal Affect, Appropriate Debridement Note Post-Debridement Measurements/Treatment WC - Nurse 2 - General Ulcer CM Notes Start: 09/08/19 14:51 Freq: Status: Active Protocol: Activity Type Activity Date Activity User E-Sign Co-Sign Detail Recorded Client Recorded Date Recorded By Document 09/11/19 14:51 MW [id number] 09/11/19 14:58 MW 09/11/19 14:51 Wound Center Nurse 2 #1 L Med LE -Time 14:51 -Correct Patient Yes -Correct Side, Site, Position Yes -Correct Procedure Yes -Procedure Performed Yes -Type of Procedure Debridement -Clinical Debridement Subcutaneous -Post Debridement Size (cm) - Length 2.5 -Post Debridement Size (cm) - Width 3.0 -Post Debridement Size (cm) - Depth 0.2 -Total Square (cm) 7.50 -Wound/Ulcer Outcome Not Healed -Ulcer Cleansing Rinsed/ Irrigated with Saline -Foul Odor after Cleansing No -Bioengineered Tissue Yes -Type of bioengineered Tissue Apligraf -Expiration Date 09/18/19 -Product Lot Number [id number] -Percent Used 100 -Saline Lot Number [id number] -Injectable Lidocaine (%) 2 -Lidocaine (ml) 5 -Bleeding Controlled with Pressure -Offloading No -Treatment Response Procedure Tolerated Well Pain Scale: 0-10 Numeric Is Patient Pain Free? Yes Wound debrided: Nonhealing venous stasis ulcer left lower extremity Laterality: Left Type of Debridement: Excisional debridement Anesthesia Used: 5% Lidocaine Gel, - - 2% Lido Depth: in the subcutaneous layer Percentage of wound debrided: 100 Instrument Used: 5mm curette Tissue Removed: Slough and devitalized tissue Severity: Fat Layer Exposed Amount of bleeding with debridement: Mild Bleeding Controlled with: Pressure Patient tolerated procedure well Assessment/Plan Active Problems Venous stasis ulcer of left lower leg with edema of left lower leg (Acute) fat layer exposed Assessment: See above diagnoses Plan: The patient was seen and examined at the wound center today and was updated on the plan of care. A subcutaneous debridement was performed today. The patient tolerated the procedure well. The patients wound care will consist of: Apligraf #1 was applied after subcutaneous debridement, it was then covered with the wound veil and secured with Steri-Strips, 100% of the Product was used with 0% waste. Patient tolerated the procedure well. 3m wrap for compression. Baseline bloodwork and vascular studies will be held at this time, reconsider if no significant wound improvement. Patient educated on the importance of diet on wound healing and instructed to increase protein and vitamin C intake. Patient verbalized understanding. given the delayed wound healing and venous component of his ulcer in fact that it has been now more than 4 weeks with out substantial improvement, will apply for advanced skin substitute . Patient has been advised to elevate lower extremities as much as possible. Elevation is to be implemented during daytime hours and legs are to be elevated to heart level, or higher, as much as possible. Prolonged idle sitting has been discouraged. Activity and ambulation has been encouraged. Patient will follow up at wound healing center in one week or sooner if needed. This note was generated with [employer] software. It may contain incorrect words, spelling, and punctuation that were not noted in checking the note before signing. [id number]: [id number] Skin sub graft trnk/arm/leg
[2019-09-18 14:19] VITALS: BP 148/85; PULSE 95; RESP 16; TEMP 36.6; BMI 36.8
--- NOTE | 2019-09-18 14:24 | WC ---
apligraph left intact
--- NOTE | 2019-09-18 20:13 | PN.PCM_ITS ---
(1) Venous stasis ulcer of left lower leg with edema of left lower leg Status: Acute Code(s): I83.029 - Varicose veins of left lower extremity with ulcer of unspecified site; I83.892 - Varicose veins of left lower extremity with other complications; L97.929 - Non-pressure chronic ulcer of unspecified part of left lower leg with unspecified severity; R60.9 - Edema, unspecified Comment: fat layer exposed (2) Diabetes Status: Acute Code(s): E11.9 - Type 2 diabetes mellitus without complications (3) Nonhealing ulcer of left lower extremity with fat layer exposed Status: Acute Code(s): L97.922 - Non-pressure chronic ulcer of unspecified part of left lower leg with fat layer exposed (4) PVD (peripheral vascular disease) Status: Acute Code(s): I73.9 - Peripheral vascular disease, unspecified (5) Hypertension Status: Chronic Code(s): I10 - Essential (primary) hypertension Type of Wound Date of Service: 09/18/19 Chief Complaint: Nonhealing ulcer left lower extremity x4 weeks History of Wound: This is a 54-year-old male who presents to the wound healing center today with complaint of nonhealing ulceration to the left lower extremity x4 weeks. He has a past medical history as listed above. The patient states that he is unclear if he injured his left lower extremity, however noticed an open ulceration approximately 3 weeks ago. He is unclear whether or not there is ever an injury. He does state that he has had issues with nonhealing wounds to his lower legs in the past and that he has had uriel icose vein ablations. He does have a history of PVD. He has been covering the site with antibiotic ointment and gauze without much improvement. He denies any systemic or localized signs of infection at this time. Denies any other aggravating relieving factors. All other systems reviewed and negative with exception of those listed above. Progress of Wound: 08/28/2019?wound cultures were reviewed and showed Citrobacter and anaerobic bacteria, patient was previously placed on ciprofloxacin and Augmentin and instructed on starting a probiotic. Unfortunately he only picked up this ciprofloxacin. States that wound is still painful, overall wound size is improving however. 09/11/2019?wound cultures were reviewed and showed Citrobacter and anaerobic bacteria again, patient placed back on Cipro and Augmentin which was sensitive, also advised to continue with probiotic. Patient still notes pain in his wound. First application of Apligraf today, tolerated the 3M wraps well.FMLA forms to be filled out as patient cannot work on his feet due to the pain from the wound. He will be released to work once his wound is healed and or his pain diminishes. 09/18/19-patient did well with Apligraf and 3M wrap, no new concerns, lidocaine and epi was utilized prior to debridement for better tolerability. - Physical Exam Vital Signs Temp Pulse Resp BP Pulse Ox 97.8 F 95 16 148/85 H 97 09/18/19 14:19 09/18/19 14:19 09/18/19 14:19 09/18/19 14:19 09/06/19 00:38 General: Alert, Oriented x3, Cooperative, No apparent distress HEENT: Atraumatic Oral: Moist Mucosa Lungs: Clear to auscultation, Normal air movement Cardiovascular: Regular rate Abdomen: Soft, Non Tender Extremities: No clubbing, No cyanosis, Edema - generalized BLLE edema, Peripheral Pulses Normal Skin: Ulcer/ Wound - see nursing documentation, slough and devitalized tissue, no signs of infection at this time Neurological: Neuro grossly intact Psych/Mental Status: Normal Affect, Appropriate, Alert and oriented to time, place, person, mood and affect Debridement Note Post-Debridement Measurements/Treatment WC - Nurse 2 - General Ulcer CM Notes Start: 09/08/19 14:51 Freq: Status: Active Protocol: Activity Type Activity Date Activity User E-Sign Co-Sign Detail Recorded Client Recorded Date Recorded By Document 09/11/19 14:51 MW [id number] 09/11/19 14:58 MW Document 09/18/19 15:04 MW [id number] 09/18/19 15:08 MW 09/11/19 09/18/19 14:51 15:04 Wound Center Nurse 2 #1 L Med LE -Time 14:51 15:07 -Correct Patient Yes Yes -Correct Side, Site, Position Yes Yes -Correct Procedure Yes Yes -Procedure Performed Yes Yes -Type of Procedure Debridement Debridement -Clinical Debridement Subcutaneous Subcutaneous -Post Debridement Size (cm) - Length 2.5 2.2 -Post Debridement Size (cm) - Width 3.0 2.5 -Post Debridement Size (cm) - Depth 0.2 0.1 -Total Square (cm) 7.50 5.50 -Wound/Ulcer Outcome Not Healed Not Healed -Ulcer Cleansing Rinsed/ Rinsed/ Irrigated with Irrigated with Saline Saline -Foul Odor after Cleansing No No -Bioengineered Tissue Yes Yes -Type of bioengineered Tissue Apligraf Apligraf -Expiration Date 09/18/19 09/25/19 -Product Lot Number [id number] -Percent Used 100 100 -Saline Lot Number [id number] -Injectable Lidocaine (%) 2 -Lidocaine (ml) 5 -Bleeding Controlled with Pressure Pressure -Offloading No No -Treatment Response Procedure Procedure Tolerated Well Tolerated Well Pain Scale: 0-10 Numeric Is Patient Pain Free? Yes Yes Wound debrided: Left VLU Laterality: Left Type of Debridement: Excisional debridement Anesthesia Used: 5% Lidocaine Gel Depth: in the subcutaneous layer Percentage of wound debrided: 100 Instrument Used: 5mm curette Tissue Removed: slough and devitalized tissue Severity: Fat Layer Exposed Amount of bleeding with debridement: Mild Bleeding Controlled with: Pressure Patient tolerated procedure well Assessment/Plan Assessment: See above diagnoses Plan: The patient was seen and examined at the wound center today and was updated on the plan of care. A subcutaneous debridement was performed today. The patient tolerated the procedure well. The patients wound care will consist of: Apligraf #2 was applied after subcutaneous debridement, it was then covered with the wound veil and secured with Steri-Strips, 100% of the Product was used with 0% waste. Patient tolerated the procedure well. 3m wrap for compression. Baseline bloodwork and vascular studies will be held at this time, reconsider if no significant wound improvement. Patient educated on the importance of diet on wound healing and instructed to increase protein and vitamin C intake. Patient verbalized understanding. given the delayed wound healing and venous component of his ulcer in fact that it has been now more than 4 weeks with out substantial improvement, will apply for advanced skin substitute . Patient has been advised to elevate lower extremities as much as possible. Elevation is to be implemented during daytime hours and legs are to be elevated to heart level, or higher, as much as possible. Prolonged idle sitting has been discouraged. Activity and ambulation has been encouraged. Patient will follow up at wound healing center in one week or sooner if needed. This note was generated with [employer] software. It may contain incorrect words, spelling, and punctuation that were not noted in checking the note before signing. [id number]: [id number] Skin sub graft trnk/arm/leg
[2019-09-25 14:33] VITALS: BP 165/97; PULSE 106; RESP 16; TEMP 36.5; BMI 36.8
--- NOTE | 2019-09-25 14:35 | WC ---
apligraph left intact
--- NOTE | 2019-09-25 17:17 | PN.PCM_ITS ---
(1) Venous stasis ulcer of left lower leg with edema of left lower leg Status: Acute Current Visit: Yes Code(s): I83.029 - Varicose veins of left lower extremity with ulcer of unspecified site; I83.892 - Varicose veins of left lower extremity with other complications; L97.929 - Non-pressure chronic ulcer of unspecified part of left lower leg with unspecified severity; R60.9 - Edema, unspecified Comment: fat layer exposed (2) Diabetes Status: Acute Current Visit: Yes Code(s): E11.9 - Type 2 diabetes mellitus without complications (3) Nonhealing ulcer of left lower extremity with fat layer exposed Status: Acute Current Visit: Yes Code(s): L97.922 - Non-pressure chronic ulcer of unspecified part of left lower leg with fat layer exposed (4) PVD (peripheral vascular disease) Status: Acute Current Visit: Yes Code(s): I73.9 - Peripheral vascular disease, unspecified (5) Hypertension Status: Chronic Current Visit: No Code(s): I10 - Essential (primary) hypertension Type of Wound Date of Service: 09/25/19 Chief Complaint: Nonhealing ulcer left lower extremity x4 weeks History of Wound: This is a 54-year-old male who presents to the wound healing center today with complaint of nonhealing ulceration to the left lower extremity x4 weeks. He has a past medical history as listed above. The patient states that he is unclear if he injured his left lower extremity, ho wever noticed an open ulceration approximately 3 weeks ago. He is unclear whether or not there is ever an injury. He does state that he has had issues with nonhealing wounds to his lower legs in the past and that he has had varicose vein ablations. He does have a history of PVD. He has been covering the site with antibiotic ointment and gauze without much improvement. He denies any systemic or localized signs of infection at this time. Denies any other aggravating relieving factors. All other systems reviewed and negative with exception of those listed above. Progress of Wound: 08/28/2019?wound cultures were reviewed and showed Citrobacter and anaerobic bacteria, patient was previously placed on ciprofloxacin and Augmentin and instructed on starting a probiotic. Unfortunately he only picked up this ciprofloxacin. States that wound is still painful, overall wound size is improving however. 09/11/2019?wound cultures were reviewed and showed Citrobacter and anaerobic bacteria again, patient placed back on Cipro and Augmentin which was sensitive, also advised to continue with probiotic. Patient still notes pain in his wound. First application of Apligraf today, tolerated the 3M wraps well.FMLA forms to be filled out as patient cannot work on his feet due to the pain from the wound. He will be released to work once his wound is healed and or his pain diminishes. 09/18/19-patient did well with Apligraf and 3M wrap, no new concerns, lidocaine and epi was utilized prior to debridement for better tolerability. 09/25/19-patient did well with Apligraf and 3M wrap, no new concerns, lidocaine and epi was utilized prior to debridement for better tolerability. - Physical Exam Vital Signs Temp Pulse Resp BP Pulse Ox 97.7 F L 106 H 16 165/97 H 97 09/25/19 14:33 09/25/19 14:33 09/25/19 14:33 09/25/19 14:33 09/06/19 00:38 General: Alert, Oriented x3, Cooperative, No apparent distress HEENT: Atraumatic Oral: Moist Mucosa Lungs: Clear to auscultation, Normal air movement Cardiovascular: Regular rate, Regular Rhythm Abdomen: Soft, Non Tender Extremities: No clubbing, No cyanosis, No edema, Peripheral Pulses Normal Skin: Ulcer/ Wound - see nursing documentation, slough and devitalized tissue present, no signs of infection at this time Wound Measurements and Assessment WC - Nurse 1 - General Ulcer Measurement Start: 09/08/19 14:51 Freq: Status: Active Protocol: Activity Type Activity Date Activity User E-Sign Co-Sign Detail Recorded Client Recorded Date Recorded By Document 09/25/19 14:33 [facility] [id number] 09/25/19 14:35 [facility] 09/25/19 14:33 Wound Center Nurse 1 [Ulcer Assessment] #1 L Med LE -Combined with other wound No -Current Size (cm) - Length 0.1 -Current Size (cm) - Width 0.1 -Current Size (cm) - Depth 0.1 -Total Square Cm 0.01 [Edema Assessment] -Lower Limb Edema Present Yes -Left Calf (cm) 39.2 -Left Ankle (cm) 23.5 WC - Nurse 2 - General Ulcer CM Notes Start: 09/23/19 20:11 Freq: Status: Active Protocol: Activity Type Activity Date Activity User E-Sign Co-Sign Detail Recorded Client Recorded Date Recorded By Document 09/25/19 15:04 MW [id number] 09/25/19 15:11 MW 09/25/19 15:04 Wound Center Nurse 2 [Procedure/Treatment] #1 L Med LE -Time 15:04 -Correct Patient Yes -Correct Side, Site, Position Yes -Correct Procedure Yes -Procedure Performed Yes -Type of Procedure Debridement -Clinical Debridement Subcutaneous -Tissue Removed Subcutaneous -Post Debridement (cm) - Length 2.0 -Post Debridement (cm) - Width 2.4 -Post Debridement (cm) - Depth 0.2 -Total Square (Post) (cm) 4.80 -Area of Debridement (cm) - Length 2.0 -Area of Debridement (cm) - Width 2.4 -Total Square (Area) (cm) 4.80 -Tunneling No -Undermining/Tunneling No -Circular Undermining No -Wound/Ulcer Outcome Not Healed -Ulcer Cleansing Rinsed/ Irrigated with Saline -Foul Odor after Cleansing No -Bioengineered Tissue Yes -Type of Bioengineered Tissue Apligraf -Expiration Date 10/02/19 -Product Lot Number [id number] -Percent Used 75 -Saline Lot Number [id number] -Bleeding Controlled with Pressure -Offloading No -Treatment Response Procedure Tolerated Well -Debridement - Subq, 1st 20sq cm Yes -Apply Skin Sub - 1st 25 sq cm - Legs 1 -Apligraf (per sq cm) 44 Query Text:1 sheet = 44 sq cm [See Physician Procedure note for Specifics] Pain Scale: 0-10 Numeric [Pain] -Is Patient Pain Free? Yes WC - Nurse 3 - General Ulcer D/C NN Start: 09/23/19 20:11 Freq: Status: Active Protocol: Activity Type Activity Date Activity User E-Sign Co-Sign Detail Recorded Client Recorded Date Recorded By Document 09/25/19 15:18 DL [id number] 09/25/19 15:20 DL 09/25/19 15:18 Wound Care Nurse 3 [Wound Dressing] #1 L Med LE -Ulcer Cleansing Wound Cleanser -Foul Odor after Cleansing No -Other Dressing Apligraf/steri strips/adaptic -Primary Dressing Covered/Secured Dry Gauze with [Compression Applied] Left -Multi-Layered Wrap Application Multi-Layer Comp - Left ($) [Post Procedure Tolerated] -Treatment Response Procedure Tolerated Well Pain Scale: 0-10 Numeric [Pain] -Is Patient Pain Free? Yes - Visit Discharge [Visit Discharge Information] -Discharge Condition Stable -Ambulatory Status Ambulatory -Transportation Private Auto -Notes: Dressing applied by Katerina Mayfield RN today in clinic . Neurological: Neuro grossly intact Psych/Mental Status: Normal Affect, Appropriate, Alert and oriented to time, place, person, mood and affect Debridement Note Post-Debridement Measurements/Treatment - Nurse 2 - General Ulcer CM Notes Start: 09/23/19 20:11 Freq: Status: Active Protocol: Activity Type Activity Date Activity User E-Sign Co-Sign Detail Recorded Client Recorded Date Recorded By Document 09/25/19 15:04 MW [id number] 09/25/19 15:11 MW 09/25/19 15:04 Wound Center Nurse 2 #1 L Med LE -Time 15:04 -Correct Patient Yes -Correct Side, Site, Position Yes -Correct Procedure Yes -Procedure Performed Yes -Type of Procedure Debridement -Clinical Debridement Subcutaneous -Tissue Removed Subcutaneous -Post Debridement (cm) - Length 2.0 -Post Debridement (cm) - Width 2.4 -Post Debridement (cm) - Depth 0.2 -Total Square (Post) (cm) 4.80 -Area of Debridement (cm) - Length 2.0 -Area of Debridement (cm) - Width 2.4 -Total Square (Area) (cm) 4.80 -Tunneling No -Undermining/Tunneling No -Circular Undermining No -Wound/Ulcer Outcome Not Healed -Ulcer Cleansing Rinsed/ Irrigated with Saline -Foul Odor after Cleansing No -Bioengineered Tissue Yes -Type of Bioengineered Tissue Apligraf -Expiration Date 10/02/19 -Product Lot Number [id number] -Percent Used 75 -Saline Lot Number [id number] -Bleeding Controlled with Pressure -Offloading No -Treatment Response Procedure Tolerated Well -Debridement - Subq, 1st 20sq cm Yes -Apply Skin Sub - 1st 25 sq cm - Legs 1 -Apligraf (per sq cm) 44 Query Text:1 sheet = 44 sq cm Pain Scale: 0-10 Numeric Is Patient Pain Free? Yes - Nurse 3 - General Ulcer D/C NN Start: 09/23/19 20:11 Freq: Status: Active Protocol: Activity Type Activity Date Activity User E-Sign Co-Sign Detail Recorded Client Recorded Date Recorded By Document 09/25/19 15:18 DL [id number] 09/25/19 15:20 DL 09/25/19 15:18 Wound Care Nurse 3 #1 L Med LE -Ulcer Cleansing Wound Cleanser -Foul Odor after Cleansing No -Other Dressing Apligraf/steri strips/adaptic -Primary Dressing Covered/Secured with Dry Gauze Left -Multi-Layered Wrap Application Multi-Layer Comp - Left ($) Treatment Response Procedure Tolerated Well Pain Scale: 0-10 Numeric Is Patient Pain Free? Yes WC - Visit Discharge Discharge Condition Stable Ambulatory Status Ambulatory Transportation Private Auto Notes: Dressing applied by Katerina Mayfield RN today in clinic . Wound debrided: Venous leg ulcer left lower extremity Laterality: Left Type of Debridement: Excisional debridement Anesthesia Used: 5% Lidocaine Gel Depth: in the subcutaneous layer Percentage of wound debrided: 100 Instrument Used: 5mm curette Tissue Removed: Slough and devitalized tissue Severity: Fat Layer Exposed Amount of bleeding with debridement: Mild Bleeding Controlled with: Pressure Patient tolerated procedure well Assessment/Plan Active Problems PVD (peripheral vascular disease) (Acute) Nonhealing ulcer of left lower extremity with fat layer exposed (Acute) Diabetes (Acute) Venous stasis ulcer of left lower leg with edema of left lower leg (Acute) fat layer exposed Assessment: See above diagnoses Plan: The patient was seen and examined at the wound center today and was updated on the plan of care. A subcutaneous debridement was performed today. The patient tolerated the procedure well. The patients wound care will consist of: Apligraf #3 was applied after subcutaneous debridement, it was then covered with the wound veil and secured with Steri-Strips, 100% of the Product was used with 0% waste. Patient tolerated the procedure well. 3m wrap for compression. Baseline bloodwork and vascular studies will be held at this time, reconsider if no significant wound improvement. Patient educated on the importance of diet on wound healing and instructed to increase protein and vitamin C intake. Patient verbalized understanding. given the delayed wound healing and venous component of his ulcer in fact that it has been now more than 4 weeks with out substantial improvement, will apply for advanced skin substitute . Patient has been advised to elevate lower extremities as much as possible. Elevation is to be implemented during daytime hours and legs are to be elevated to heart level, or higher, as much as possible. Prolonged idle sitting has been discouraged. Activity and ambulation has been encouraged. Patient will follow up at wound healing center in one week or sooner if needed. This note was generated with [employer] dictation software. It may contain incorrect words, spelling, and punctuation that were not noted in checking the note before signing. [id number]: [id number] Skin sub graft trnk/arm/leg
[2019-10-02 14:32] VITALS: BP 160/92; PULSE 89; RESP 18; TEMP 36.6; BMI 36.8
--- NOTE | 2019-10-02 14:33 | WC ---
wound not measured due to apligraf left in place
--- NOTE | 2019-10-05 15:13 | PCM.WC.PN ---
(1) Venous stasis ulcer of left lower leg with edema of left lower leg Status: Acute Code(s): I83.029 - Varicose veins of left lower extremity with ulcer of unspecified site; I83.892 - Varicose veins of left lower extremity with other complications; L97.929 - Non-pressure chronic ulcer of unspecified part of left lower leg with unspecified severity; R60.9 - Edema, unspecified Comment: fat layer exposed (2) Diabetes Status: Acute Code(s): E11.9 - Type 2 diabetes mellitus without complications (3) Nonhealing ulcer of left lower extremity with fat layer exposed Status: Acute Code(s): L97.922 - Non-pressure chronic ulcer of unspecified part of left lower leg with fat layer exposed (4) PVD (peripheral vascular disease) Status: Acute Code(s): I73.9 - Peripheral vascular disease, unspecified (5) Hypertension Status: Chronic Code(s): I10 - Essential (primary) hypertension Type of Wound Date of Service: 10/02/19 Chief Complaint: Nonhealing ulcer left lower extremity x4 weeks History of Wound: This is a 54-year-old male who presents to the wound healing center today with complaint of nonhealing ulceration to the left lower extremity x4 weeks. He has a past medical history as listed above. The patient states that he is unclear if he injured his left lower extremity, however noticed an open ulceration approximately 3 weeks ago. He is unclear whether or not there is ever an injury. He does state that he has had issues with nonhealing wounds to his lower legs in the past and that he has had varicose vein ablations. He does have a history of PVD. He has been covering the site with antibiotic ointment and gauze without much improvement. He denies any systemic or localized signs of infection at this time. Denies any other aggravating relieving factors. All other systems reviewed and negative with exception of those listed above. Progress of Wound: 08/28/2019?wound cultures were reviewed and showed Citrobacter and anaerobic bacteria, patient was previously placed on ciprofloxacin and Augmentin and instructed on starting a probiotic. Unfortunately he only picked up this ciprofloxacin. States that wound is still painful, overall wound size is improving however. 09/11/2019?wound cultures were reviewed and showed Citrobacter and anaerobic bacteria again, patient placed back on Cipro and Augmentin which was sensitive, also advised to continue with probiotic. Patient still notes pain in his wound. First application of Apligraf today, tolerated the 3M wraps well.FMLA forms to be filled out as patient cannot work on his feet due to the pain from the wound. He will be released to work once his wound is healed and or his pain diminishes. 09/18/19-patient did well with Apligraf and 3M wrap, no new concerns, lidocaine and epi was utilized prior to debridement for better tolerability. 09/25/19-patient did well with Apligraf and 3M wrap, no new concerns, lidocaine and epi was utilized prior to debridement for better tolerability. 10/02/2019?patient doing well with Apligraf and 3M wrap, no new concerns, Apligraf in place, will leave on for another week. Patient denies any signs of infection. the patient otherwise denies any fever, chills, nausea, vomiting, shortness of breath, chest pain or pressure, palpitations, orthopnea, lower extremity edema, syncope or presyncopal episodes. - Physical Exam Vital Signs Temp Pulse Resp BP Pulse Ox 97.8 F 89 18 160/92 H 97 10/02/19 14:32 10/02/19 14:32 10/02/19 14:32 10/02/19 14:32 09/06/19 00:38 General: Alert, Oriented x3, Cooperative, No apparent distress HEENT: Atraumatic Oral: Moist Mucosa Lungs: Clear to auscultation, Normal air movement Cardiovascular: Regular rate Abdomen: Soft Extremities: No clubbing, No cyanosis, Edema - Generalized bilateral lower extremity edema with chronic venous changes present, Peripheral Pulses Normal Skin: Ulcer/ Wound - See nursing documentation, wound not visualized as Apligraf left in place today Wound Measurements and Assessment WC - Nurse 1 - General Ulcer Measurement Start: 09/08/19 14:51 Freq: Status: Active Protocol: Activity Type Activity Date Activity User E-Sign Co-Sign Detail Recorded Client Recorded Date Recorded By Document 10/02/19 14:32 RB [id number] 10/02/19 14:33 RB 10/02/19 14:32 Wound Center Nurse 1 [Edema Assessment] -Lower Limb Edema Present Yes -Left Calf (cm) 39.1 -Left Ankle (cm) 24 10/02/19 14:33 Wound Center by Dary Mayfield wound not measured due to apligraf left in place Initialized on 10/02/19 14:33 - END OF NOTE WC - Nurse 2 - General Ulcer CM Notes Start: 09/23/19 20:11 Freq: Status: Active Protocol: Activity Type Activity Date Activity User E-Sign Co-Sign Detail Recorded Client Recorded Date Recorded By Document 10/02/19 14:56 MW [id number] 10/02/19 14:57 MW 10/02/19 14:56 Wound Center Nurse 2 [Procedure/Treatment] #1 L Med LE -Time 14:56 -Correct Patient Yes -Correct Side, Site, Position Yes -Correct Procedure Yes -Procedure Performed No -Tunneling No -Undermining/Tunneling No -Circular Undermining No -Wound/Ulcer Outcome Not Healed -Ulcer Cleansing Not Cleansed -Foul Odor after Cleansing No -Bioengineered Tissue No -Bleeding Controlled with NA -Other apligraf intact and left in place -Offloading No [See Physician Procedure note for Specifics] Pain Scale: 0-10 Numeric [Pain] -Is Patient Pain Free? Yes - Nurse 3 - General Ulcer D/C NN Start: 09/23/19 20:11 Freq: Status: Active Protocol: Activity Type Activity Date Activity User E-Sign Co-Sign Detail Recorded Client Recorded Date Recorded By Document 10/02/19 15:14 DL [id number] 10/02/19 15:15 DL 10/02/19 15:14 Wound Care Nurse 3 [Wound Dressing] #1 L Med LE -Ulcer Cleansing Wound Cleanser -Foul Odor after Cleansing No -Primary Dressing Applied Aquacel Extra -Primary Dressing Covered/Secured Dry Gauze with -Aquacel Extra 1 [Compression Applied] Left -Multi-Layered Wrap Application Multi-Layer Comp - Left ($) [Post Procedure Tolerated] -Treatment Response Procedure Tolerated Well Pain Scale: 0-10 Numeric [Pain] -Is Patient Pain Free? Yes - Visit Discharge [Visit Discharge Information] -Discharge Condition Stable -Ambulatory Status Ambulatory -Transportation Private Auto Musculoskeletal: No Tenderness to Palpation of Joints or Extremities Neurological: Neuro grossly intact Psych/Mental Status: Normal Affect, Appropriate, Alert and oriented to time, place, person, mood and affect Debridement Note Post-Debridement Measurements/Treatment WC - Nurse 2 - General Ulcer CM Notes Start: 09/23/19 20:11 Freq: Status: Active Protocol: Activity Type Activity Date Activity User E-Sign Co-Sign Detail Recorded Client Recorded Date Recorded By Document 09/25/19 15:04 MW [id number] 09/25/19 15:11 MW Document 10/02/19 14:56 MW [id number] 10/02/19 14:57 MW 09/25/19 10/02/19 15:04 14:56 Wound Center Nurse 2 #1 L [facility] LE -Time 15:04 14:56 -Correct Patient Yes Yes -Correct Side, Site, Position Yes Yes -Correct Procedure Yes Yes -Procedure Performed Yes No -Type of Procedure Debridement -Clinical Debridement Subcutaneous -Tissue Removed Subcutaneous -Post Debridement (cm) - Length 2.0 -Post Debridement (cm) - Width 2.4 -Post Debridement (cm) - Depth 0.2 -Total Square (Post) (cm) 4.80 -Area of Debridement (cm) - Length 2.0 -Area of Debridement (cm) - Width 2.4 -Total Square (Area) (cm) 4.80 -Tunneling No No -Undermining/Tunneling No No -Circular Undermining No No -Wound/Ulcer Outcome Not Healed Not Healed -Ulcer Cleansing Rinsed/ Not Cleansed Irrigated with Saline -Foul Odor after Cleansing No No -Bioengineered Tissue Yes No -Type of Bioengineered Tissue Apligraf -Expiration Date 10/02/19 -Product Lot Number [id number] -Percent Used 75 -Saline Lot Number [id number] -Bleeding Controlled with Pressure NA -Other apligraf intact and left in place -Offloading No No -Treatment Response Procedure Tolerated Well -Debridement - Subq, 1st 20sq cm No -Apply Skin Sub - 1st 25 sq cm - Legs 1 -Apligraf (per sq cm) 44 Pain Scale: 0-10 Numeric Is Patient Pain Free? Yes Yes WC - Nurse 3 - General Ulcer D/C NN Start: 09/23/19 20:11 Freq: Status: Active Protocol: Activity Type Activity Date Activity User E-Sign Co-Sign Detail Recorded Client Recorded Date Recorded By Document 09/25/19 15:18 DL [id number] 09/25/19 15:20 DL Document 10/02/19 15:14 DL [id number] 10/02/19 15:15 DL 09/25/19 10/02/19 15:18 15:14 Wound Care Nurse 3 #1 L Med LE -Ulcer Cleansing Wound Cleanser Wound Cleanser -Foul Odor after Cleansing No No -Primary Dressing Applied Aquacel Extra -Other Dressing Apligraf/steri strips/adaptic -Primary Dressing Covered/Secured with Dry Gauze Dry Gauze -Aquacel Extra 1 Left -Multi-Layered Wrap Application Multi-Layer Multi-Layer Comp - Left ($) Comp - Left ($) Treatment Response Procedure Procedure Tolerated Well Tolerated Well Pain Scale: 0-10 Numeric Is Patient Pain Free? Yes Yes WC - Visit Discharge Discharge Condition Stable Stable Ambulatory Status Ambulatory Ambulatory Transportation Private Auto Private Auto Notes: Dressing applied by Katerina Mayfield RN today in clinic . No debridement was completed today Assessment/Plan Assessment: See above diagnoses Plan: The patient was seen and examined at the wound center today and was updated on the plan of care. The patients wound care will consist of: Apligraf #[address] for another week, 3m wrap for compression. Baseline bloodwork and vascular studies will be held at this time, reconsider if no significant wound improvement. Patient educated on the importance of diet on wound healing and instructed to increase protein and vitamin C intake. Patient verbalized understanding. given the delayed wound healing and venous component of his ulcer in fact that it has been now more than 4 weeks with out substantial improvement, will apply for advanced skin substitute . Patient has been advised to elevate lower extremities as much as possible. Elevation is to be implemented during daytime hours and legs are to be elevated to heart level, or higher, as much as possible. Prolonged idle sitting has been discouraged. Activity and ambulation has been encouraged. Patient will follow up at wound healing center in one week or sooner if needed. This note was generated with [employer] dictation software. It may contain incorrect words, spelling, and punctuation that were not noted in checking the note before signing. Office Visits / Consults: [id number] OV [id number] Est
== END 2019-10-06 23:59 ==
LOC: WC 14:00
PROVIDERS: PCP Family Medicine; Referring Provider Family Medicine; Visit Provider Nurse Practitioner Family
DX: I83.028 Varicose veins of left lower extremity with ulcer other part of lower leg (principal); L97.822 Non-pressure chronic ulcer of other part of left lower leg with fat layer exposed; E11.51 Type 2 diabetes mellitus with diabetic peripheral angiopathy without gangrene; I10 Essential (primary) hypertension
CPT/HCPCS: 11042; 15271; 29581; 99213; Q4101; G0463

== ENCOUNTER 2019-10-30 14:30 | Outpatient (RCR) | payer BC, SELFPAY ==
[2019-10-07 00:39] VITALS: BP 160/92; PULSE 89; RESP 18; TEMP 36.6; O2SAT 97
[2019-10-09 14:35] VITALS: BP 147/82; PULSE 84; RESP 20; TEMP 37.4; BMI 36.8
--- NOTE | 2019-10-09 19:25 | PN.PCM_ITS ---
(1) Venous stasis ulcer of left lower leg with edema of left lower leg Status: Acute Code(s): I83.029 - Varicose veins of left lower extremity with ulcer of unspecified site; I83.892 - Varicose veins of left lower extremity with other complications; L97.929 - Non-pressure chronic ulcer of unspecified part of left lower leg with unspecified severity; R60.9 - Edema, unspecified Comment: fat layer exposed (2) Diabetes Status: Acute Qualifiers: Diabetes mellitus type: type 2 Code(s): E11.9 - Type 2 diabetes mellitus without complications (3) Nonhealing ulcer of left lower extremity with fat layer exposed Status: Acute Code(s): L97.922 - Non-pressure chronic ulcer of unspecified part of left lower leg with fat layer exposed (4) PVD (peripheral vascular disease) Status: Acute Code(s): I73.9 - Peripheral vascular disease, unspecified (5) Hypertension Status: Chronic Code(s): I10 - Essential (primary) hypertension Type of Wound Date of Service: 10/09/19 Chief Complaint: Nonhealing ulcer left lower extremity x4 weeks History of Wound: This is a 54-year-old male who presents to the wound healing center today with complaint of nonhealing ulceration to the left lower extremity x4 weeks. He has a past medical history as listed above. The patient states that he is unclear if he injured his left lower extremity, however noticed an open ulceration approximately 3 weeks ago. He is unclear whether or not there is ever an injury. He does state that he has had issues wi th nonhealing wounds to his lower legs in the past and that he has had varicose vein ablations. He does have a history of PVD. He has been covering the site with antibiotic ointment and gauze without much improvement. He denies any systemic or localized signs of infection at this time. Denies any other aggravating relieving factors. All other systems reviewed and negative with exception of those listed above. Progress of Wound: 08/28/2019?wound cultures were reviewed and showed Citrobacter and anaerobic bacteria, patient was previously placed on ciprofloxacin and A ugmentin and instructed on starting a probiotic. Unfortunately he only picked up this ciprofloxacin. States that wound is still painful, overall wound size is improving however. 09/11/2019?wound cultures were reviewed and showed Citrobacter and anaerobic bacteria again, patient placed back on Cipro and Augmentin which was sensitive, also advised to continue with probiotic. Patient still notes pain in his wound. First application of Apligraf today, tolerated the 3M wraps well.FMLA forms to be filled out as patient cannot work on his feet due to the pain from the wound. He will be released to work once his wound is healed and or his pain diminishes. 09/18/19-patient did well with Apligraf and 3M wrap, no new concerns, lidocaine and epi was utilized prior to debridement for better tolerability. 09/25/19-patient did well with Apligraf and 3M wrap, no new concerns, lidocaine and epi was utilized prior to debridement for better tolerability. 10/02/2019?patient doing well with Apligraf and 3M wrap, no new concerns, Apligraf in place, will leave on for another week. Patient denies any signs of infection. the patient otherwise denies any fever, chills, nausea, vomiting, shortness of breath, chest pain or pressure, palpitations, orthopnea, lower extremity edema, syncope or presyncopal episodes. 10/09/2019?patient doing well with Apligraf and 3M wrap, no new concerns, or application of Apligraf applied today and will be left on for 2 weeks. Slow clinical improvement in wound size. - Physical Exam Vital Signs Temp Pulse Resp BP Pulse Ox 99.3 F H 84 20 H 147/82 H 97 10/09/19 14:35 10/09/19 14:35 10/09/19 14:35 10/09/19 14:35 10/07/19 00:39 General: Alert, Oriented x3, Cooperative, No apparent distress HEENT: Atraumatic Oral: Moist Mucosa Cardiovascular: Regular rate, Regular Rhythm Abdomen: Soft, Non Tender Extremities: No clubbing, No cyanosis, Edema - Generalized bilateral lower extremity edema with chronic venous changes present, Peripheral Pulses Normal Skin: Ulcer/ Wound - See nursing documentation, slough and devitalized tissue present, no signs of obvious infection at this time. Musculoskeletal: No Tenderness to Palpation of Joints or Extremities Neurological: Neuro grossly intact Psych/Mental Status: Normal Affect, Appropriate, Alert and oriented to time, place, person, mood and affect Debridement Note Post-Debridement Measurements/Treatment WC - Nurse 2 - General Ulcer CM Notes Start: 10/09/19 14:35 Freq: Status: Active Protocol: Activity Type Activity Date Activity User E-Sign Co-Sign Detail Recorded Client Recorded Date Recorded By Document 10/09/19 15:03 MW [id number] 10/09/19 15:10 MW 10/09/19 15:03 Wound Center Nurse 2 #1 L Med LE -Time 15:03 -Correct Patient Yes -Correct Side, Site, Position Yes -Correct Procedure Yes -Procedure Performed Yes -Type of Procedure Debridement -Clinical Debridement Subcutaneous -Tissue Removed Subcutaneous -Post Debridement (cm) - Length 1.5 -Post Debridement (cm) - Width 2.0 -Post Debridement (cm) - Depth 0.2 -Total Square (Post) (cm) 3.00 -Area of Debridement (cm) - Length 1.5 -Area of Debridement (cm) - Width 2.0 -Total Square (Area) (cm) 3.00 -Tunneling No -Undermining/Tunneling No -Circular Undermining No -Wound/Ulcer Outcome Not Healed -Ulcer Cleansing Rinsed/ Irrigated with Saline -Foul Odor after Cleansing No -Bioengineered Tissue Yes -Type of Bioengineered Tissue Apligraf -Expiration Date 10/18/19 -Product Lot Number [id number] -Percent Used 50 -Saline Lot Number [id number] -Injectable Lidocaine w/ Epi (%) 1 -Injectable Lidocaine w/ Epi (mls) 5 -Bleeding Controlled with Pressure -Offloading No -Treatment Response Procedure Tolerated Well -Debridement - Subq, 1st 20sq cm No -Apply Skin Sub - 1st 25 sq cm - Legs 1 -Apligraf (per sq cm) 44 Pain Scale: 0-10 Numeric Is Patient Pain Free? Yes - Nurse 3 - General Ulcer D/C NN Start: 10/09/19 14:35 Freq: Status: Active Protocol: Activity Type Activity Date Activity User E-Sign Co-Sign Detail Recorded Client Recorded Date Recorded By Document 10/09/19 15:18 [facility] [id number] 10/09/19 15:19 [facility] 10/09/19 15:18 Wound Care Nurse 3 #1 L Med LE -Primary Dressing Applied Other -Other Dressing APLIGRAPH PER ANIBAL ALFARO -Primary Dressing Covered/Secured with Dry Gauze Left -Multi-Layered Wrap Application Multi-Layer Comp - Left ($) Treatment Response Procedure Tolerated Well Pain Scale: 0-10 Numeric Is Patient Pain Free? Yes WC - Visit Discharge Discharge Condition Stable Ambulatory Status Ambulatory Transportation Private Auto Wound debrided: Venous leg ulcer left lower extremity Laterality: Left Type of Debridement: Excisional debridement Anesthesia Used: 5% Lidocaine Gel Depth: in the subcutaneous layer Percentage of wound debrided: 100 Instrument Used: 5mm curette Tissue Removed: Slough and devitalized tissue Severity: Fat Layer Exposed Amount of bleeding with debridement: Mild Bleeding Controlled with: Pressure Patient tolerated procedure well Assessment/Plan Assessment: See above diagnoses Plan: The patient was seen and examined at the wound center today and was updated on the plan of care. The patients wound care will consist of: Apligraf #4 was applied today and 50% of the product was utilized, will be left in place for 2 weeks, 3m wrap for compression. Baseline bloodwork done 2 weeks ago and still waiting to receive results and vascular studies will be held at this time, reconsider if no significant wound improvement. Patient educated on the importance of diet on wound healing and instructed to increase protein and vitamin C intake. Patient verbalized understanding. given the delayed wound healing and venous component of his ulcer in fact that it has been now more than 4 weeks with out substantial improvement, will apply for advanced skin substitute . Patient has been advised to elevate lower extremities as much as possible. Elevation is to be implemented during daytime hours and legs are to be elevated to heart level, or higher, as much as possible. Prolonged idle sitting has been discouraged. Activity and ambulation has been encouraged. Patient will follow up at wound healing center in one week or sooner if needed. This note was generated with [employer] dictation software. It may contain incorrect words, spelling, and punctuation that were not noted in checking the note before signing. [id number]: [id number] Skin sub graft trnk/arm/leg
[2019-10-16 15:13] VITALS: BP 168/93; PULSE 102; RESP 16; TEMP 36.7; BMI 36.8
--- NOTE | 2019-10-16 15:17 | WC ---
APLIGRAPH LEFT INTACT PER CM INSTRUCTION
--- NOTE | 2019-10-17 14:24 | PCM.WC.PN ---
(1) Venous stasis ulcer of left lower leg with edema of left lower leg Status: Acute Current Visit: Yes Code(s): I83.029 - Varicose veins of left lower extremity with ulcer of unspecified site; I83.892 - Varicose veins of left lower extremity with other complications; L97.929 - Non-pressure chronic ulcer of unspecified part of left lower leg with unspecified severity; R60.9 - Edema, unspecified Comment: fat layer exposed (2) Diabetes Status: Acute Current Visit: Yes Qualifiers: Diabetes mellitus type: type 2 Code(s): E11.9 - Type 2 diabetes mellitus without complications (3) Nonhealing ulcer of left lower extremity with fat layer exposed Status: Acute Current Visit: Yes Code(s): L97.922 - Non-pressure chronic ulcer of unspecified part of left lower leg with fat layer exposed (4) PVD (peripheral vascular disease) Status: Acute Current Visit: Yes Code(s): I73.9 - Peripheral vascular disease, unspecified (5) Hypertension Status: Chronic Current Visit: Yes Code(s): I10 - Essential (primary) hypertension Type of Wound Date of Service: 10/16/19 Chief Complaint: Nonhealing ulcer left lower extremity x4 weeks History of Wound: This is a 54-year-old male who presents to the wound healing center today with complaint of nonhealing ulceration to the left lower extremity x4 weeks. He has a past medical history as listed above. The patient states that he is unclear if he injured his left lower extremity, however noticed an open ulceration approximately 3 weeks ago. He is unclear whether or not there is ever an injury. He does state that he has had issues with nonhealing wounds to his lower legs in the past and that he has had varicose vein ablations. He does have a history of PVD. He has been covering the site with antibiotic ointment and gauze without much improvement. He denies any systemic or localized signs of infection at this time. Denies any other aggravating relieving factors. All other systems reviewed and negative with exception of those listed above. Progress of Wound: 08/28/2019?wound cultures were reviewed and showed Citrobacter and anaerobic bacteria, patient was previously placed on ciprofloxacin and Augmentin and instructed on starting a probiotic. Unfortunately he only picked up this ciprofloxacin. States that wound is still painful, overall wound size is improving however. 09/11/2019?wound cultures were reviewed and showed Citrobacter and anaerobic bacteria again, patient placed back on Cipro and Augmentin which was sensitive, also advised to continue with probiotic. Patient still notes pain in his wound. First application of Apligraf today, tolerated the 3M wraps well.FMLA forms to be filled out as patient cannot work on his feet due to the pain from the wound. He will be released to work once his wound is healed and or his pain diminishes. 09/18/19-patient did well with Apligraf and 3M wrap, no new concerns, lidocaine and epi was utilized prior to debridement for better tolerability. 09/25/19-patient did well with Apligraf and 3M wrap, no new concerns, lidocaine and epi was utilized prior to debridement for better tolerability. 10/02/2019?patient doing well with Apligraf and 3M wrap, no new concerns, Apligraf in place, will leave on for another week. Patient denies any signs of infection. the patient otherwise denies any fever, chills, nausea, vomiting, shortness of breath, chest pain or pressure, palpitations, orthopnea, lower extremity edema, syncope or presyncopal episodes. 10/09/2019?patient doing well with Apligraf and 3M wrap, no new concerns, or application of Apligraf applied today and will be left on for 2 weeks. Slow clinical improvement in wound size. 10/16/2019?patient doing well with Apligraf and 3M wrap, no new concerns, Apligraf in place, will leave on for another week. Patient denies any signs of infection. the patient otherwise denies any fever, chills, nausea, vomiting, shortness of breath, chest pain or pressure, palpitations, orthopnea, lower extremity edema, syncope or presyncopal episodes. - Physical Exam Vital Signs Temp Pulse Resp BP Pulse Ox 98.1 F 102 H 16 168/93 H 97 10/16/19 15:13 10/16/19 15:13 10/16/19 15:13 10/16/19 15:13 10/07/19 00:39 General: Alert, Oriented x3, Cooperative, No apparent distress HEENT: Atraumatic Oral: Moist Mucosa Lungs: Clear to auscultation, Normal air movement Cardiovascular: Regular rate, Regular Rhythm Abdomen: Soft, Non Tender Extremities: No clubbing, No cyanosis, Edema - Generalized bilateral lower extremity edema, Peripheral Pulses Normal Skin: Ulcer/ Wound - See nursing documentation, Wound not able to be examined due to Apligraf being in place Wound Measurements and Assessment WC - Nurse 1 - General Ulcer Measurement Start: 10/09/19 14:35 Freq: Status: Active Protocol: Activity Type Activity Date Activity User E-Sign Co-Sign Detail Recorded Client Recorded Date Recorded By Document 10/16/19 15:13 [facility] [id number] 10/16/19 15:17 [facility] 10/16/19 15:13 Wound Center Nurse 1 [Ulcer Assessment] #1 L Med LE -Combined with other wound No -Current Size (cm) - Length 0.1 -Current Size (cm) - Width 0.1 -Current Size (cm) - Depth 0.1 -Total Square Cm 0.01 -Texture (Charissa-wound Skin Appearance) Assessed, Scarring -Moisture (Charissa-wound Skin Appearance Assessed,Dry/ ) Scaly -Color (Charissa-wound Skin Appearance) Assessed -Temperature (Charissa-wound Skin No Abnormality Appearance) (Pt Warm) -Tenderness on Palpation (Charissa-wound No Skin Appearance) -Ulcer Cleansing SOAPY WATER -Foul Odor after Cleansing No [Edema Assessment] -Lower Limb Edema Present Yes -Left Calf (cm) 39 -Left Ankle (cm) 23.5 WC - Nurse 2 - General Ulcer CM Notes Start: 10/09/19 14:35 Freq: Status: Active Protocol: Activity Type Activity Date Activity User E-Sign Co-Sign Detail Recorded Client Recorded Date Recorded By Document 10/16/19 15:28 [id number] 10/16/19 15:29 MW 10/16/19 15:28 Wound Center Nurse 2 [Procedure/Treatment] #1 L Med LE -Time 15:29 -Correct Patient Yes -Correct Side, Site, Position Yes -Correct Procedure Yes -Procedure Performed No -Tunneling No -Undermining/Tunneling No -Circular Undermining No -Wound/Ulcer Outcome Not Healed -Ulcer Cleansing Not Cleansed -Foul Odor after Cleansing No -Bleeding Controlled with NA -Offloading No [See Physician Procedure note for Specifics] Pain Scale: 0-10 Numeric [Pain] -Is Patient Pain Free? Yes WC - Nurse 3 - General Ulcer D/C NN Start: 10/09/19 14:35 Freq: Status: Active Protocol: Activity Type Activity Date Activity User E-Sign Co-Sign Detail Recorded Client Recorded Date Recorded By Document 10/16/19 15:41 RB [id number] 10/16/19 15:42 RB 10/16/19 15:41 Wound Care Nurse 3 [Compression Applied] Left -Multi-Layered Wrap Application Unna Boot - Left ($) [Post Procedure Tolerated] -Treatment Response Procedure Tolerated Well Pain Scale: 0-10 Numeric [Pain] -Is Patient Pain Free? Yes Teaching: Wound Center [Wound Center Education] (Items with an * have Printed Materials Available- Please identify what is given to patient under the Teaching materials given to patient and caregiver Section. Compression Wraps & Stockings -Person Taught Patient -Teaching Method Discussion, Demonstration -Response to teaching Verbalize understanding WC - Visit Discharge [Visit Discharge Information] -Discharge Condition Stable -Ambulatory Status Ambulatory -Transportation Private Auto -Medication Reconcilliation completed No & provided to patient/care provider -Clinical Summary of Care Provided Yes Neurological: Neuro grossly intact Psych/Mental Status: Normal Affect, Appropriate, Alert and oriented to time, place, person, mood and affect Debridement Note Post-Debridement Measurements/Treatment WC - Nurse 2 - General Ulcer CM Notes Start: 10/09/19 14:35 Freq: Status: Active Protocol: Activity Type Activity Date Activity User E-Sign Co-Sign Detail Recorded Client Recorded Date Recorded By Document 10/09/19 15:03 MW [id number] 10/09/19 15:10 MW Document 10/16/19 15:28 MW [id number] 10/16/19 15:29 MW 10/09/19 10/16/19 15:03 15:28 Wound Center Nurse 2 #1 L Med LE -Time 15:03 15:29 -Correct Patient Yes Yes -Correct Side, Site, Position Yes Yes -Correct Procedure Yes Yes -Procedure Performed Yes No -Type of Procedure Debridement -Clinical Debridement Subcutaneous -Tissue Removed Subcutaneous -Post Debridement (cm) - Length 1.5 -Post Debridement (cm) - Width 2.0 -Post Debridement (cm) - Depth 0.2 -Total Square (Post) (cm) 3.00 -Area of Debridement (cm) - Length 1.5 -Area of Debridement (cm) - Width 2.0 -Total Square (Area) (cm) 3.00 -Tunneling No No -Undermining/Tunneling No No -Circular Undermining No No -Wound/Ulcer Outcome Not Healed Not Healed -Ulcer Cleansing Rinsed/ Not Cleansed Irrigated with Saline -Foul Odor after Cleansing No No -Bioengineered Tissue Yes -Type of Bioengineered Tissue Apligraf -Expiration Date 10/18/19 -Product Lot Number [id number] -Percent Used 50 -Saline Lot Number [id number] -Injectable Lidocaine w/ Epi (%) 1 -Injectable Lidocaine w/ Epi (mls) 5 -Bleeding Controlled with Pressure NA -Offloading No No -Treatment Response Procedure Tolerated Well -Debridement - Subq, 1st 20sq cm No -Apply Skin Sub - 1st 25 sq cm - Legs 1 -Apligraf (per sq cm) 44 Pain Scale: 0-10 Numeric Is Patient Pain Free? Yes Yes - Nurse 3 - General Ulcer D/C NN Start: 10/09/19 14:35 Freq: Status: Active Protocol: Activity Type Activity Date Activity User E-Sign Co-Sign Detail Recorded Client Recorded Date Recorded By Document 10/09/19 15:18 [facility] [id number] 10/09/19 15:19 [facility] Document 10/16/19 15:41 [id number] 10/16/19 15:42 RB 10/09/19 10/16/19 15:18 15:41 Wound Care Nurse 3 #1 L Med LE -Primary Dressing Applied Other -Other Dressing APLIGRAPH PER ANIBAL ALFARO -Primary Dressing Covered/Secured with Dry Gauze Left -Multi-Layered Wrap Application Multi-Layer Unna Boot - Comp - Left ($) Left ($) Treatment Response Procedure Procedure Tolerated Well Tolerated Well Pain Scale: 0-10 Numeric Is Patient Pain Free? Yes Yes Teaching: Wound Center Compression Wraps & Stockings -Person Taught Patient -Teaching Method Discussion, Demonstration -Response to teaching Verbalize understanding WC - Visit Discharge Discharge Condition Stable Stable Ambulatory Status Ambulatory Ambulatory Transportation Private Auto Private Auto Medication Reconcilliation completed & No provided to patient/care provider Clinical Summary of Care Provided Yes No debridement was completed today Assessment/Plan Active Problems PVD (peripheral vascular disease) (Acute) Nonhealing ulcer of left lower extremity with fat layer exposed (Acute) Diabetes (Acute) Hypertension (Chronic) Venous stasis ulcer of left lower leg with edema of left lower leg (Acute) fat layer exposed Assessment: See above diagnoses Plan: The patient was seen and examined at the wound center today and was updated on the plan of care. The patients wound care will consist of: Apligraf #[address], no signs of obvious infection,, 3m wrap for compression. Baseline bloodwork done 2 weeks ago and still waiting to receive results and vascular studies will be held at this time, reconsider if no significant wound improvement. Patient educated on the importance of diet on wound healing and instructed to increase protein and vitamin C intake. Patient verbalized understanding. given the delayed wound healing and venous component of his ulcer in fact that it has been now more than 4 weeks with out substantial improvement, will apply for advanced skin substitute . Patient has been advised to elevate lower extremities as much as possible. Elevation is to be implemented during daytime hours and legs are to be elevated to heart level, or higher, as much as possible. Prolonged idle sitting has been discouraged. Activity and ambulation has been encouraged. Patient will follow up at wound healing center in one week or sooner if needed. This note was generated with [employer] dictation software. It may contain incorrect words, spelling, and punctuation that were not noted in checking the note before signing. Office Visits / Consults: [id number] OV L3 Est
[2019-10-23 14:50] VITALS: BP 136/91; PULSE 86; RESP 18; TEMP 36.2; BMI 36.8
--- NOTE | 2019-10-23 16:21 | PCM.WC.PN ---
(1) Venous stasis ulcer of left lower leg with edema of left lower leg Status: Acute Current Visit: Yes Code(s): I83.029 - Varicose veins of left lower extremity with ulcer of unspecified site; I83.892 - Varicose veins of left lower extremity with other complications; L97.929 - Non-pressure chronic ulcer of unspecified part of left lower leg with unspecified severity; R60.9 - Edema, unspecified Comment: fat layer exposed (2) Diabetes Status: Acute Current Visit: Yes Qualifiers: Diabetes mellitus type: type 2 Code(s): E11.9 - Type 2 diabetes mellitus without complications (3) Nonhealing ulcer of left lower extremity with fat layer exposed Status: Acute Current Visit: Yes Code(s): L97.922 - Non-pressure chronic ulcer of unspecified part of left lower leg with fat layer exposed (4) PVD (peripheral vascular disease) Status: Acute Current Visit: Yes Code(s): I73.9 - Peripheral vascular disease, unspecified (5) Hypertension Status: Chronic Current Visit: Yes Code(s): I10 - Essential (primary) hypertension Type of Wound Date of Service: 10/23/19 Chief Complaint: Nonhealing ulcer left lower extremity x4 weeks History of Wound: This is a 54-year-old male who presents to the wound healing center today with complaint of nonhealing ulceration to the left lower extremity x4 weeks. He has a past medical history as listed above. The patient states that he is unclear if he injured his left lower extremity, however noticed an open ulceration approximately 3 weeks ago. He is unclear whether or not there is ever an injury. He does state that he has had issues with nonhealing wounds to his lower legs in the past and that he has had varicose vein ablations. He does have a history of PVD. He has been covering the site with antibiotic ointment and gauze without much improvement. He denies any systemic or localized signs of infection at this time. Denies any other aggravating relieving factors. All other systems reviewed and negative with exception of those listed above. Progress of Wound: 08/28/2019?wound cultures were reviewed and showed Citrobacter and anaerobic bacteria, patient was previously placed on ciprofloxacin and Augmentin and instructed on starting a probiotic. Unfortunately he only picked up this ciprofloxacin. States that wound is still painful, overall wound size is improving however. 09/11/2019?wound cultures were reviewed and showed Citrobacter and anaerobic bacteria again, patient placed back on Cipro and Augmentin which was sensitive, also advised to continue with probiotic. Patient still notes pain in his wound. First application of Apligraf today, tolerated the 3M wraps well.FMLA forms to be filled out as patient cannot work on his feet due to the pain from the wound. He will be released to work once his wound is healed and or his pain diminishes. 09/18/19-patient did well with Apligraf and 3M wrap, no new concerns, lidocaine and epi was utilized prior to debridement for better tolerability. 09/25/19-patient did well with Apligraf and 3M wrap, no new concerns, lidocaine and epi was utilized prior to debridement for better tolerability. 10/02/2019?patient doing well with Apligraf and 3M wrap, no new concerns, Apligraf in place, will leave on for another week. Patient denies any signs of infection. the patient otherwise denies any fever, chills, nausea, vomiting, shortness of breath, chest pain or pressure, palpitations, orthopnea, lower extremity edema, syncope or presyncopal episodes. 10/09/2019?patient doing well with Apligraf and 3M wrap, no new concerns, or application of Apligraf applied today and will be left on for 2 weeks. Slow clinical improvement in wound size. 10/16/2019?patient doing well with Apligraf and 3M wrap, no new concerns, Apligraf in place, will leave on for another week. Patient denies any signs of infection. the patient otherwise denies any fever, chills, nausea, vomiting, shortness of breath, chest pain or pressure, palpitations, orthopnea, lower extremity edema, syncope or presyncopal episodes. 10/23/2019?patient doing well with Apligraf and 3M wrap, no new concerns, 5th application of Apligraf applied today and will be left on for 2 weeks. Slow clinical improvement in wound size, although patient's wound is improving and showing benefit from the Apligraf. - Physical Exam Vital Signs Temp Pulse Resp BP Pulse Ox 97.1 F L 86 18 136/91 H 97 10/23/19 14:50 10/23/19 14:50 10/23/19 14:50 10/23/19 14:50 10/07/19 00:39 General: Alert, Oriented x3, Cooperative, No apparent distress HEENT: Atraumatic Oral: Moist Mucosa Lungs: Clear to auscultation, Normal air movement Cardiovascular: Regular rate, Regular Rhythm, Normal S1, Normal S2 Abdomen: Soft, Non Tender Extremities: No clubbing, No cyanosis, No edema Skin: Ulcer/ Wound - see nursing documentation, slough and devitalized tissue present, no signs of obvious infection at this time, however cultures were recollected today Wound Measurements and Assessment WC - Nurse 1 - General Ulcer Measurement Start: 10/09/19 14:35 Freq: Status: Active Protocol: Activity Type Activity Date Activity User E-Sign Co-Sign Detail Recorded Client Recorded Date Recorded By Document 10/23/19 14:50 RB [id number] 10/23/19 14:57 RB 10/23/19 14:50 Wound Center Nurse 1 [Ulcer Assessment] #1 L Med LE -Combined with other wound No -Current Size (cm) - Length 1.6 -Current Size (cm) - Width 2 -Current Size (cm) - Depth 0.1 -Total Square Cm 3.2 -Tunneling No -Undermining/Tunneling No -Circular Undermining No -Exudate Amt Small -Exudate Type Serosanguineous -Wound Margin Flat & Intact -Granulation Amt Large (67-100%) -Granulation Quality Red -Slough/Fibrin Yes -Necrosis Amt Small (1-33%) -Necrotic Tissue Type Adherent Slough -Structure Exposed N/A -Texture (Charissa-wound Skin Appearance) Assessed, Scarring -Moisture (Charissa-wound Skin Appearance Dry/Scaly ) -Color (Charissa-wound Skin Appearance) Assessed -Temperature (Charissa-wound Skin No Abnormality Appearance) (Pt Warm) -Tenderness on Palpation (Charissa-wound No Skin Appearance) -Ulcer Cleansing Wound Cleanser -Foul Odor after Cleansing No -Anesthetic Used 4% Lidocaine Solution [Edema Assessment] -Lower Limb Edema Present Yes -Left Calf (cm) 38.1 -Left Ankle (cm) 22.9 WC - Nurse 2 - General Ulcer CM Notes Start: 10/09/19 14:35 Freq: Status: Active Protocol: Activity Type Activity Date Activity User E-Sign Co-Sign Detail Recorded Client Recorded Date Recorded By Document 10/23/19 15:07 [id number] 10/23/19 15:14 MW 10/23/19 15:07 Wound Center Nurse 2 [Procedure/Treatment] #1 L Med LE -Time 15:09 -Correct Patient Yes -Correct Side, Site, Position Yes -Correct Procedure Yes -Procedure Performed Yes -Type of Procedure Debridement -Clinical Debridement Subcutaneous -Tissue Removed Subcutaneous -Post Debridement (cm) - Length 1.3 -Post Debridement (cm) - Width 1.9 -Post Debridement (cm) - Depth 0.1 -Total Square (Post) (cm) 2.47 -Area of Debridement (cm) - Length 1.3 -Area of Debridement (cm) - Width 1.9 -Total Square (Area) (cm) 2.47 -Tunneling No -Undermining/Tunneling No -Circular Undermining No -Wound/Ulcer Outcome Not Healed -Ulcer Cleansing Rinsed/ Irrigated with Saline -Foul Odor after Cleansing No -Bioengineered Tissue Yes -Type of Bioengineered Tissue Apligraf -Expiration Date 11/01/19 -Product Lot Number [id number] -Percent Used 50 -Saline Lot Number [id number] -Bleeding Controlled with Pressure -Offloading No -Debridement - Subq, 1st 20sq cm No -Apply Skin Sub - 1st 25 sq cm - Legs 1 -Apligraf (per sq cm) 44 Query Text:1 sheet = 44 sq cm [See Physician Procedure note for Specifics] WC - Nurse 3 - General Ulcer D/C NN Start: 10/09/19 14:35 Freq: Status: Active Protocol: Activity Type Activity Date Activity User E-Sign Co-Sign Detail Recorded Client Recorded Date Recorded By Document 10/23/19 15:19 [facility] [id number] 10/23/19 15:20 [facility] 10/23/19 15:19 Wound Care Nurse 3 [Wound Dressing] #1 L Med LE -Primary Dressing Applied Aquacel Extra, Other -Other Dressing APLIGRAPH PER ANIBAL ALFARO -Primary Dressing Covered/Secured Dry Gauze with -Aquacel Extra 1 [Compression Applied] Left -Multi-Layered Wrap Application Multi-Layer Comp - Left ($) [Post Procedure Tolerated] -Treatment Response Procedure Tolerated Well Pain Scale: 0-10 Numeric [Pain] -Is Patient Pain Free? Yes WC - Visit Discharge [Visit Discharge Information] -Discharge Condition Stable -Ambulatory Status Ambulatory -Transportation Private Auto Neurological: Neuro grossly intact Psych/Mental Status: Normal Affect, Appropriate, Alert and oriented to time, place, person, mood and affect Debridement Note Post-Debridement Measurements/Treatment WC - Nurse 2 - General Ulcer CM Notes Start: 10/09/19 14:35 Freq: Status: Active Protocol: Activity Type Activity Date Activity User E-Sign Co-Sign Detail Recorded Client Recorded Date Recorded By Document 10/09/19 15:03 MW [id number] 10/09/19 15:10 MW Document 10/16/19 15:28 MW [id number] 10/16/19 15:29 MW Document 10/23/19 15:07 MW [id number] 10/23/19 15:14 MW 10/09/19 10/16/19 10/23/19 15:03 15:28 15:07 Wound Center Nurse 2 #1 L Med LE -Time 15:03 15:29 15:09 -Correct Patient Yes Yes Yes -Correct Side, Site, Position Yes Yes Yes -Correct Procedure Yes Yes Yes -Procedure Performed Yes No Yes -Type of Procedure Debridement Debridement -Clinical Debridement Subcutaneous Subcutaneous -Tissue Removed Subcutaneous Subcutaneous -Post Debridement (cm) - Length 1.5 1.3 -Post Debridement (cm) - Width 2.0 1.9 -Post Debridement (cm) - Depth 0.2 0.1 -Total Square (Post) (cm) 3.00 2.47 -Area of Debridement (cm) - Length 1.5 1.3 -Area of Debridement (cm) - Width 2.0 1.9 -Total Square (Area) (cm) 3.00 2.47 -Tunneling No No No -Undermining/Tunneling No No No -Circular Undermining No No No -Wound/Ulcer Outcome Not Healed Not Healed Not Healed -Ulcer Cleansing Rinsed/ Not Cleansed Rinsed/ Irrigated with Irrigated with Saline Saline -Foul Odor after Cleansing No No No -Bioengineered Tissue Yes Yes -Type of Bioengineered Tissue Apligraf Apligraf -Expiration Date 10/18/19 11/01/19 -Product Lot Number [id number] -Percent Used 50 50 -Saline Lot Number [id number] -Injectable Lidocaine w/ Epi (%) 1 -Injectable Lidocaine w/ Epi (mls) 5 -Bleeding Controlled with Pressure NA Pressure -Offloading No No No -Treatment Response Procedure Tolerated Well -Debridement - Subq, 1st 20sq cm No No -Apply Skin Sub - 1st 25 sq cm - Legs 1 1 -Apligraf (per sq cm) 44 44 Query Text:1 sheet = 44 sq cm Pain Scale: 0-10 Numeric Is Patient Pain Free? Yes Yes - Nurse 3 - General Ulcer D/C NN Start: 10/09/19 14:35 Freq: Status: Active Protocol: Activity Type Activity Date Activity User E-Sign Co-Sign Detail Recorded Client Recorded Date Recorded By Document 10/09/19 15:18 [facility] [id number] 10/09/19 15:19 [facility] Document 10/16/19 15:41 RB [id number] 10/16/19 15:42 RB Document 10/23/19 15:19 [facility] [id number] 10/23/19 15:20 [facility] 10/09/19 10/16/19 10/23/19 15:18 15:41 15:19 Wound Care Nurse 3 #1 L Med LE -Primary Dressing Applied Other Aquacel Extra, Other -Other Dressing APLIGRAPH PER APLIGRAPH PER ANIBAL ALFARO ANIBAL ALFARO -Primary Dressing Covered/Secured with Dry Gauze Dry Gauze -Aquacel Extra 1 Left -Multi-Layered Wrap Application Multi-Layer Unna Boot - Multi-Layer Comp - Left ($) Left ($) Comp - Left ($) Treatment Response Procedure Procedure Procedure Tolerated Well Tolerated Well Tolerated Well Pain Scale: 0-10 Numeric Is Patient Pain Free? Yes Yes Yes Teaching: Wound Center Compression Wraps & Stockings -Person Taught Patient -Teaching Method Discussion, Demonstration -Response to teaching Verbalize understanding WC - Visit Discharge Discharge Condition Stable Stable Stable Ambulatory Status Ambulatory Ambulatory Ambulatory Transportation Private Auto Private Auto Private Auto Medication Reconcilliation completed & No provided to patient/care provider Clinical Summary of Care Provided Yes Wound debrided: Left venous leg ulcer Laterality: Left Type of Debridement: Excisional debridement Anesthesia Used: 5% Lidocaine Gel Depth: in the subcutaneous layer Percentage of wound debrided: 100 Instrument Used: 3mm curette Tissue Removed: Slough and devitalized tissue Severity: Fat Layer Exposed Amount of bleeding with debridement: Mild Bleeding Controlled with: Pressure Patient tolerated procedure well Assessment/Plan Active Problems PVD (peripheral vascular disease) (Acute) Nonhealing ulcer of left lower extremity with fat layer exposed (Acute) Diabetes (Acute) Hypertension (Chronic) Venous stasis ulcer of left lower leg with edema of left lower leg (Acute) fat layer exposed Assessment: See above diagnoses Plan: The patient was seen and examined at the wound center today and was updated on the plan of care. The patients wound care will consist of: Apligraf #5 was applied today, 50% utilized and secured with Steri's and Adaptic touch, will be left in place for 2 weeks, 3m wrap for compression. Baseline bloodwork done 2 weeks ago and still waiting to receive results and vascular studies will be held at this time, reconsider if no significant wound improvement. Patient educated on the importance of diet on wound healing and instructed to increase protein and vitamin C intake. Patient verbalized understanding. given the delayed wound healing and venous component of his ulcer in fact that it has been now more than 4 weeks with out substantial improvement, will apply for advanced skin substitute . Patient has been advised to elevate lower extremities as much as possible. Elevation is to be implemented during daytime hours and legs are to be elevated to heart level, or higher, as much as possible. Prolonged idle sitting has been discouraged. Activity and ambulation has been encouraged. Patient will follow up at wound healing center in one week or sooner if needed. This note was generated with [employer] dictation software. It may contain incorrect words, spelling, and punctuation that were not noted in checking the note before signing. [id number]: [id number] Skin sub graft trnk/arm/leg
[2019-10-30 14:39] VITALS: BP 145/81; PULSE 113; RESP 16; TEMP 36.6; BMI 36.8
--- NOTE | 2019-10-30 14:42 | WC ---
APLIGRAPH LEFT INTACT PER CM INSTRUCTION
[2019-10-30 15:09] VITALS: BP 145/100; PULSE 90; RESP 18
--- NOTE | 2019-10-31 07:31 | PCM.WC.PN ---
(1) Venous ulcer of left leg Status: Acute Current Visit: Yes Code(s): I83.029 - Varicose veins of left lower extremity with ulcer of unspecified site; L97.929 - Non-pressure chronic ulcer of unspecified part of left lower leg with unspecified severity (2) Venous stasis ulcer of left lower leg with edema of left lower leg Status: Acute Current Visit: Yes Code(s): I83.029 - Varicose veins of left lower extremity with ulcer of unspecified site; I83.892 - Varicose veins of left lower extremity with other complications; L97.929 - Non-pressure chronic ulcer of unspecified part of left lower leg with unspecified severity; R60.9 - Edema, unspecified Comment: fat layer exposed (3) Diabetes Status: Acute Current Visit: Yes Qualifiers: Diabetes mellitus type: type 2 Code(s): E11.9 - Type 2 diabetes mellitus without complications (4) Nonhealing ulcer of left lower extremity with fat layer exposed Status: Acute Current Visit: Yes Code(s): L97.922 - Non-pressure chronic ulcer of unspecified part of left lower leg with fat layer exposed (5) PVD (peripheral vascular disease) Status: Acute Current Visit: Yes Code(s): I73.9 - Peripheral vascular disease, unspecified (6) Hypertension Status: Chronic Current Visit: Yes Code(s): I10 - Essential (primary) hypertension Type of Wound Date of Service: 10/30/19 Chief Complaint: Nonhealing ulcer left lower extremity x4 weeks History of Wound: This is a 54-year-old male who presents to the wound healing center today with complaint of nonhealing ulceration to the left lower extremity x4 weeks. He has a past medical history as listed above. The patient states that he is unclear if he injured his left lower extremity, however noticed an open ulceration approximately 3 weeks ago. He is unclear whether or not there is ever an injury. He does state that he has had issues with nonhealing wounds to his lower legs in the past and that he has had varicose vein ablations. He does have a history of PVD. He has been covering the site with antibiotic ointment and gauze without much improvement. He denies any systemic or localized signs of infection at this time. Denies any other aggravating relieving factors. All other systems reviewed and negative with exception of those listed above. Progress of Wound: 08/28/2019?wound cultures were reviewed and showed Citrobacter and anaerobic bacteria, patient was previously placed on ciprofloxacin and Augmentin and instructed on starting a probiotic. Unfortunately he only picked up this ciprofloxacin. States that wound is still painful, overall wound size is improving however. 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 Denies any signs of infection, apligraf in place. Denies any fever, chills, or systemic or localized signs of infection. 09/11/2019?wound cultures were reviewed and showed Citrobacter and anaerobic bacteria again, patient placed back on Cipro and Augmentin which was sensitive, also advised to continue with probiotic. Patient still notes pain in his wound. First application of Apligraf today, tolerated the 3M wraps well.FMLA forms to be filled out as patient cannot work on his feet due to the pain from the wound. He will be released to work once his wound is healed and or his pain diminishes. 09/18/19-patient did well with Apligraf and 3M wrap, no new concerns, lidocaine and epi was utilized prior to debridement for better tolerability. 09/25/19-patient did well with Apligraf and 3M wrap, no new concerns, lidocaine and epi was utilized prior to debridement for better tolerability. 10/02/2019?patient doing well with Apligraf and 3M wrap, no new concerns, Apligraf in place, will leave on for another week. Patient denies any signs of infection. the patient otherwise denies any fever, chills, nausea, vomiting, shortness of breath, chest pain or pressure, palpitations, orthopnea, lower extremity edema, syncope or presyncopal episodes. 10/09/2019?patient doing well with Apligraf and 3M wrap, no new concerns, or application of Apligraf applied today and will be left on for 2 weeks. Slow clinical improvement in wound size. 10/16/2019?patient doing well with Apligraf and 3M wrap, no new concerns, Apligraf in place, will leave on for another week. Patient denies any signs of infection. the patient otherwise denies any fever, chills, nausea, vomiting, shortness of breath, chest pain or pressure, palpitations, orthopnea, lower extremity edema, syncope or presyncopal episodes. 10/23/2019?patient doing well with Apligraf and 3M wrap, no new concerns, 5th application of Apligraf applied today and will be left on for 2 weeks. Slow clinical improvement in wound size, although patient's wound is improving and showing benefit from the Apligraf. - Physical Exam Vital Signs Temp Pulse Resp BP Pulse Ox 97.8 F 90 18 145/100 H 97 10/30/19 14:39 10/30/19 15:09 10/30/19 15:10/30/19 15:10/07/19 00:39 General: Alert, Oriented x3, Cooperative, No apparent distress HEENT: Atraumatic Oral: Moist Mucosa Neck: Supple Lungs: Clear to auscultation, Normal air movement, No rhonchi, No wheeze Cardiovascular: Regular rate, Regular Rhythm, Normal S1, Normal S2 Abdomen: Soft, Non Tender Extremities: No clubbing, No cyanosis, Edema - generalized BLLE edema Skin: Ulcer/ Wound - apligraf in place Wound Measurements and Assessment WC - Nurse 1 - General Ulcer Measurement Start: 10/09/19 14:35 Freq: Status: Active Protocol: Activity Type Activity Date Activity User E-Sign Co-Sign Detail Recorded Client Recorded Date Recorded By Document 10/30/19 14:39 [facility] [id number] 10/30/19 14:42 [facility] 10/30/19 14:39 Wound Center Nurse 1 [Ulcer Assessment] #1 L Med LE -Combined with other wound No -Current Size (cm) - Length 0.1 -Current Size (cm) - Width 0.1 -Current Size (cm) - Depth 0.1 -Total Square Cm 0.01 -Texture (Charissa-wound Skin Appearance) Assessed -Moisture (Charissa-wound Skin Appearance Assessed,Dry/ ) Scaly -Color (Charissa-wound Skin Appearance) Assessed -Ulcer Cleansing soapy water [Edema Assessment] -Lower Limb Edema Present Yes -Left Calf (cm) 38.8 -Left Ankle (cm) 22.6 WC - Nurse 2 - General Ulcer CM Notes Start: 10/09/19 14:35 Freq: Status: Active Protocol: Activity Type Activity Date Activity User E-Sign Co-Sign Detail Recorded Client Recorded Date Recorded By Document 10/30/19 15:02 MW [id number] 10/30/19 15:04 MW 10/30/19 15:02 Wound Center Nurse 2 [Procedure/Treatment] #1 L Med LE -Time 15:03 -Correct Patient Yes -Correct Side, Site, Position Yes -Correct Procedure Yes -Procedure Performed No -Tunneling No -Undermining/Tunneling No -Circular Undermining No -Wound/Ulcer Outcome Not Healed -Ulcer Cleansing Not Cleansed -Foul Odor after Cleansing No -Bioengineered Tissue No -Bleeding Controlled with NA -Offloading No -Treatment Response Procedure Tolerated Well [See Physician Procedure note for Specifics] Pain Scale: 0-10 Numeric [Pain] -Is Patient Pain Free? Yes WC - Nurse 3 - General Ulcer D/C NN Start: 10/09/19 14:35 Freq: Status: Active Protocol: Activity Type Activity Date Activity User E-Sign Co-Sign Detail Recorded Client Recorded Date Recorded By Document 10/30/19 15:09 RB [id number] 10/30/19 15:13 RB 10/30/19 15:09 Wound Care Nurse 3 [Wound Dressing] #1 L Med LE -Primary Dressing Covered/Secured Dry Gauze with [Compression Applied] Left -Multi-Layered Wrap Application Multi-Layer Comp - Left ($) Vital Signs [Pulse] -Pulse Rate (60-100) 90 -Pulse Location Monitor [Respirations] -Respiratory Rate (12-18) 18 -Respiratory rate source Observation [Blood Pressure] -Blood Pressure (90/60-120/80) 145/100 H -Blood Pressure Mean (mm Hg) 115 -Source Monitor -Position Semi-Fowlers -Blood Pressure Location Left Arm Pain Scale: 0-10 Numeric [Pain] -Is Patient Pain Free? Yes Teaching: Wound Center [Wound Center Education] (Items with an * have Printed Materials Available- Please identify what is given to patient under the Teaching materials given to patient and caregiver Section. Compression Wraps & Stockings -Person Taught Patient -Teaching Method Discussion, Demonstration -Response to teaching Verbalize understanding WC - Visit Discharge [Visit Discharge Information] -Discharge Condition Stable -Ambulatory Status Ambulatory -Transportation Private Auto -Medication Reconcilliation completed No & provided to patient/care provider -Clinical Summary of Care Provided Yes Neurological: Neuro grossly intact Psych/Mental Status: Normal Affect, Appropriate, Alert and oriented to time, place, person, mood and affect Debridement Note Post-Debridement Measurements/Treatment WC - Nurse 2 - General Ulcer CM Notes Start: 10/09/19 14:35 Freq: Status: Active Protocol: Activity Type Activity Date Activity User E-Sign Co-Sign Detail Recorded Client Recorded Date Recorded By Document 10/09/19 15:03 MW [id number] 10/09/19 15:10 MW Document 10/16/19 15:28 MW [id number] 10/16/19 15:29 MW Document 10/23/19 15:07 MW [id number] 10/23/19 15:14 MW Document 10/30/19 15:02 MW [id number] 10/30/19 15:04 MW 10/09/19 10/16/19 10/23/19 15:03 15:28 15:07 Wound Center Nurse 2 #1 L Med LE -Time 15:03 15:29 15:09 -Correct Patient Yes Yes Yes -Correct Side, Site, Position Yes Yes Yes -Correct Procedure Yes Yes Yes -Procedure Performed Yes No Yes -Type of Procedure Debridement Debridement -Clinical Debridement Subcutaneous Subcutaneous -Tissue Removed Subcutaneous Subcutaneous -Post Debridement (cm) - Length 1.5 1.3 -Post Debridement (cm) - Width 2.0 1.9 -Post Debridement (cm) - Depth 0.2 0.1 -Total Square (Post) (cm) 3.00 2.47 -Area of Debridement (cm) - Length 1.5 1.3 -Area of Debridement (cm) - Width 2.0 1.9 -Total Square (Area) (cm) 3.00 2.47 -Tunneling No No No -Undermining/Tunneling No No No -Circular Undermining No No No -Wound/Ulcer Outcome Not Healed Not Healed Not Healed -Ulcer Cleansing Rinsed/ Not Cleansed Rinsed/ Irrigated with Irrigated with Saline Saline -Foul Odor after Cleansing No No No -Bioengineered Tissue Yes Yes -Type of Bioengineered Tissue Apligraf Apligraf -Expiration Date 10/18/19 11/01/19 -Product Lot Number [id number] -Percent Used 50 50 -Saline Lot Number [id number] -Injectable Lidocaine w/ Epi (%) 1 -Injectable Lidocaine w/ Epi (mls) 5 -Bleeding Controlled with Pressure NA Pressure -Offloading No No No -Treatment Response Procedure Tolerated Well -Debridement - Subq, 1st 20sq cm No No -Apply Skin Sub - 1st 25 sq cm - Legs 1 1 -Apligraf (per sq cm) 44 44 Pain Scale: 0-10 Numeric Is Patient Pain Free? Yes Yes 10/30/19 15:02 Wound Center Nurse 2 #1 L Med LE -Time 15:03 -Correct Patient Yes -Correct Side, Site, Position Yes -Correct Procedure Yes -Procedure Performed No -Type of Procedure -Clinical Debridement -Tissue Removed -Post Debridement (cm) - Length -Post Debridement (cm) - Width -Post Debridement (cm) - Depth -Total Square (Post) (cm) -Area of Debridement (cm) - Length -Area of Debridement (cm) - Width -Total Square (Area) (cm) -Tunneling No -Undermining/Tunneling No -Circular Undermining No -Wound/Ulcer Outcome Not Healed -Ulcer Cleansing Not Cleansed -Foul Odor after Cleansing No -Bioengineered Tissue No -Type of Bioengineered Tissue -Expiration Date -Product Lot Number -Percent Used -Saline Lot Number -Injectable Lidocaine w/ Epi (%) -Injectable Lidocaine w/ Epi (mls) -Bleeding Controlled with NA -Offloading No -Treatment Response Procedure Tolerated Well -Debridement - Subq, 1st 20sq cm -Apply Skin Sub - 1st 25 sq cm - Legs -Apligraf (per sq cm) Pain Scale: 0-10 Numeric Is Patient Pain Free? Yes - Nurse 3 - General Ulcer D/C NN Start: 10/09/19 14:35 Freq: Status: Active Protocol: Activity Type Activity Date Activity User E-Sign Co-Sign Detail Recorded Client Recorded Date Recorded By Document 10/09/19 15:18 [facility] [id number] 10/09/19 15:19 [facility] Document 10/16/19 15:41 RB [id number] 10/16/19 15:42 RB Document 10/23/19 15:19 [facility] [id number] 10/23/19 15:20 [facility] Document 10/30/19 15:09 RB [id number] 10/30/19 15:13 RB 10/09/19 10/16/19 10/23/19 15:18 15:41 15:19 Wound Care Nurse 3 #1 L Med LE -Primary Dressing Applied Other Aquacel Extra, Other -Other Dressing APLIGRAPH PER APLIGRAPH PER ANIBAL ALFARO ANIBAL ALFARO -Primary Dressing Covered/Secured with Dry Gauze Dry Gauze -Aquacel Extra 1 Left -Multi-Layered Wrap Application Multi-Layer Unna Boot - Multi-Layer Comp - Left ($) Left ($) Comp - Left ($) Treatment Response Procedure Procedure Procedure Tolerated Well Tolerated Well Tolerated Well Pain Scale: 0-10 Numeric Is Patient Pain Free? Yes Yes Yes Vital Signs Pulse Rate (60-100) Pulse Location Respiratory Rate (12-18) Respiratory rate source Blood Pressure (90/60-120/80) Blood Pressure Mean (mm Hg) Source Position Blood Pressure Location Teaching: Wound Center Compression Wraps & Stockings -Person Taught Patient -Teaching Method Discussion, Demonstration -Response to teaching Verbalize understanding WC - Visit Discharge Discharge Condition Stable Stable Stable Ambulatory Status Ambulatory Ambulatory Ambulatory Transportation Private Auto Private Auto Private Auto Medication Reconcilliation completed & No provided to patient/care provider Clinical Summary of Care Provided Yes 10/30/19 15:09 Wound Care Nurse 3 #1 L Med LE -Primary Dressing Applied -Other Dressing -Primary Dressing Covered/Secured with Dry Gauze -Aquacel Extra Left -Multi-Layered Wrap Application Multi-Layer Comp - Left ($) Treatment Response Pain Scale: 0-10 Numeric Is Patient Pain Free? Yes Vital Signs Pulse Rate (60-100) 90 Pulse Location Monitor Respiratory Rate (12-18) 18 Respiratory rate source Observation Blood Pressure (90/60-120/80) 145/100 H Blood Pressure Mean (mm Hg) 115 Source Monitor Position Semi-Fowlers Blood Pressure Location Left Arm Teaching: Wound Center Compression Wraps & Stockings -Person Taught Patient -Teaching Method Discussion, Demonstration -Response to teaching Verbalize understanding WC - Visit Discharge Discharge Condition Stable Ambulatory Status Ambulatory Transportation Private Auto Medication Reconcilliation completed & No provided to patient/care provider Clinical Summary of Care Provided Yes No debridement was completed today Assessment/Plan Active Problems PVD (peripheral vascular disease) (Acute) Nonhealing ulcer of left lower extremity with fat layer exposed (Acute) Diabetes (Acute) Hypertension (Chronic) Venous stasis ulcer of left lower leg with edema of left lower leg (Acute) fat layer exposed Venous ulcer of left leg (Acute) Assessment: See above diagnoses Plan: The patient was seen and examined at the wound center today and was updated on the plan of care. The patients wound care will consist of: apligraf in place, 3m wrap for compression. Baseline bloodwork done 2 weeks ago and still waiting to receive results and vascular studies will be held at this time, reconsider if no significant wound improvement. Patient educated on the importance of diet on wound healing and instructed to increase protein and vitamin C intake. Patient verbalized understanding. given the delayed wound healing and venous component of his ulcer in fact that it has been now more than 4 weeks with out substantial improvement, will apply for advanced skin substitute . Patient has been advised to elevate lower extremities as much as possible. Elevation is to be implemented during daytime hours and legs are to be elevated to heart level, or higher, as much as possible. Prolonged idle sitting has been discouraged. Activity and ambulation has been encouraged. Patient will follow up at wound healing center in one week or sooner if needed. This note was generated with [employer] dictation software. It may contain incorrect words, spelling, and punctuation that were not noted in checking the note before signing. Office Visits / Consults: [id number] [facility] Est
== END 2019-11-05 23:59 ==
LOC: WC 14:30
PROVIDERS: PCP Family Medicine; Referring Provider Family Medicine; Visit Provider Nurse Practitioner Family
DX: I83.028 Varicose veins of left lower extremity with ulcer other part of lower leg (principal); L97.822 Non-pressure chronic ulcer of other part of left lower leg with fat layer exposed; E11.51 Type 2 diabetes mellitus with diabetic peripheral angiopathy without gangrene; I10 Essential (primary) hypertension
CPT/HCPCS: 11042; 15271; 29580; 29581; 87070; 87075; 87077; 87186; 87205; 99213; Q4101; G0463

== ENCOUNTER 2019-12-03 10:00 | Outpatient (RCR) | payer BC, SELFPAY ==
[2019-11-06 00:33] VITALS: BP 145/100; PULSE 90; RESP 18; TEMP 36.6; O2SAT 97
[2019-11-06 14:59] VITALS: BP 153/86; PULSE 84; RESP 18; TEMP 36; BMI 36.8
[2019-11-06 15:40] VITALS: BP 152/87; PULSE 84; RESP 16
--- NOTE | 2019-11-06 16:40 | PN.PCM_ITS ---
(1) Venous stasis ulcer of left lower leg with edema of left lower leg Status: Acute Current Visit: Yes Code(s): I83.029 - Varicose veins of left lower extremity with ulcer of unspecified site; I83.892 - Varicose veins of left lower extremity with other complications; L97.929 - Non-pressure chronic ulcer of unspecified part of left lower leg with unspecified severity; R60.9 - Edema, unspecified Comment: fat layer exposed (2) Diabetes Status: Acute Current Visit: No Code(s): E11.9 - Type 2 diabetes mellitus without complications (3) Nonhealing ulcer of left lower extremity with fat layer exposed Status: Acute Current Visit: Yes Code(s): L97.922 - Non-pressure chronic u lcer of unspecified part of left lower leg with fat layer exposed (4) PVD (peripheral vascular disease) Status: Acute Current Visit: Yes Code(s): I73.9 - Peripheral vascular disease, unspecified (5) Hypertension Status: Chronic Current Visit: No Code(s): I10 - Essential (primary) hypertension Type of Wound Date of Service: 11/06/19 Chief Complaint: Nonhealing ulcer left lower extremity x4 weeks History of Wound: This is a 54-year-old male who presents to the wound healing center today with complaint of nonhealing ulceration to the left lower extremity x4 weeks. He has a past medical history as listed above. The patient states that he is unclear if he injured his left lower extremity, however noticed an open ulceration approximately 3 weeks ago. He is unclear whether or not there is ever an injury. He does state that he has had issues with nonhealing wounds to his lower legs in the past and that he has had varicose vein ablations. He does have a history of PVD. He has been covering the site with antibiotic ointment and gauze without much improvement. He denies any systemic or localized signs of infection at this time. Denies any other aggravating relieving factors. All other systems reviewed and negative with exception of those listed above. Progress of Wound: 08/28/2019?wound cultures were reviewed and showed Citrobacter and anaerobic bacteria, patient was previously placed on ciprofloxacin and Augmentin and instructed on starting a probiotic. Unfortunately he only picked up this ciprofloxacin. States that wound is still painful, overall wound size is improving however. 10/31/19- recent cultures done showed staph, pt treated with doxycycline and has yet to pick up attendant from pharmacy. Denies any signs of infection, apligraf in place. Denies any fever, chills, or systemic or localized signs of infection. 09/11/2019?wound cultures were reviewed and showed Citrobacter and anaerobic bacteria again, patient placed back on Cipro and Augmentin which was sensitive, also advised to continue with probiotic. Patient still notes pain in his wound. First application of Apligraf today, tolerated the 3M wraps well.FMLA forms to be filled out as patient cannot work on his feet due to the pain from the wound. He will be released to work once his wound is healed and or his pain diminishes. 09/18/19-patient did well with Apligraf and 3M wrap, no new concerns, lidocaine and epi was utilized prior to debridement for better tolerability. 09/25/19-patient did well with Apligraf and 3M wrap, no new concerns, lidocaine and epi was utilized prior to debridement for better tolerability. 10/02/2019?patient doing well with Apligraf and 3M wrap, no new concerns, Apligraf in place, will leave on for another week. Patient denies any signs of infection. the patient otherwise denies any fever, chills, nausea, vomiting, shortness of breath, chest pain or pressure, palpitations, orthopnea, lower extremity edema, syncope or presyncopal episodes. 10/09/2019?patient doing well with Apligraf and 3M wrap, no new concerns, or application of Apligraf don lied today and will be left on for 2 weeks. Slow clinical improvement in wound size. 10/16/2019?patient doing well with Apligraf and 3M wrap, no new concerns, Apligraf in place, will leave on for another week. Patient denies any signs of infection. the patient otherwise denies any fever, chills, nausea, vomiting, shortness of breath, chest pain or pressure, palpitations, orthopnea, lower extremity edema, syncope or presyncopal episodes. 10/23/2019?patient doing well with Apligraf and 3M wrap, no new concerns, 5th application of Apligraf applied today and will be left on for 2 weeks. Slow clinical improvement in wound size, although patient's wound is improving and showing benefit from the Apligraf. 11/06/19-patient did well with Apligraf and 3M wrap, no new concerns, 6th application of apligraf today - Physical Exam Vital Signs Temp Pulse Resp BP Pulse Ox 96.8 F L 84 16 152/87 H 97 11/06/19 14:59 11/06/19 15:40 11/06/19 15:40 11/06/19 15:40 11/06/19 00:33 General: Alert, Oriented x3, Cooperative, No apparent distress HEENT: Atraumatic Oral: Moist Mucosa Lungs: Clear to auscultation, Normal air movement Cardiovascular: Regular rate Abdomen: Soft, Non Tender Extremities: No clubbing, No cyanosis, Edema - Generalized bilateral lower extremity edema, Peripheral Pulses Normal Skin: Ulcer/ Wound - See nursing documentation, slough and devitalized tissue present, no signs of infection at this time Wound Measurements and Assessment WC - Nurse 1 - General Ulcer Measurement Start: 11/06/19 14:59 Freq: Status: Active Protocol: Activity Type Activity Date Activity User E-Sign Co-Sign Detail Recorded Client Recorded Date Recorded By Document 11/06/19 14:59 RB [id number] 11/06/19 15:09 RB 11/06/19 14:59 Wound Center Nurse 1 [Ulcer Assessment] #1 L Med LE -Combined with other wound No -Current Size (cm) - Length 0.4 -Current Size (cm) - Width 0.7 -Current Size (cm) - Depth 0.1 -Total Square Cm 0.28 -Tunneling No -Undermining/Tunneling No -Circular Undermining No -Exudate Amt Small -Exudate Type Serosanguineous -Wound Margin Flat & Intact -Granulation Amt Large (67-100%) -Granulation Quality Red -Slough/Fibrin Yes -Necrosis Amt Small (1-33%) -Necrotic Tissue Type Adherent Slough -Structure Exposed N/A -Texture (Charissa-wound Skin Appearance) Assessed, Scarring -Moisture (Charissa-wound Skin Appearance Assessed ) -Color (Charissa-wound Skin Appearance) Assessed -Temperature (Charissa-wound Skin No Abnormality Appearance) (Pt Warm) -Tenderness on Palpation (Charissa-wound No Skin Appearance) -Ulcer Cleansing Wound Cleanser -Foul Odor after Cleansing No -Anesthetic Used 4% Lidocaine Solution [Edema Assessment] -Lower Limb Edema Present Yes -Left Calf (cm) 39.8 -Left Ankle (cm) 23.8 WC - Nurse 2 - General Ulcer CM Notes Start: 11/06/19 14:59 Freq: Status: Active Protocol: Activity Type Activity Date Activity User E-Sign Co-Sign Detail Recorded Client Recorded Date Recorded By Document 11/06/19 15:21 MW [id number] 11/06/19 15:27 MW 11/06/19 15:21 Wound Center Nurse 2 [Procedure/Treatment] #1 L Med LE -Time 15:21 -Correct Patient Yes -Correct Side, Site, Position Yes -Correct Procedure Yes -Procedure Performed Yes -Type of Procedure Debridement -Clinical Debridement Subcutaneous -Tissue Removed Subcutaneous -Post Debridement (cm) - Length 0.6 -Post Debridement (cm) - Width 0.6 -Post Debridement (cm) - Depth 0.1 -Total Square (Post) (cm) 0.36 -Area of Debridement (cm) - Length 0.6 -Area of Debridement (cm) - Width 0.6 -Total Square (Area) (cm) 0.36 -Tunneling No -Undermining/Tunneling No -Circular Undermining No -Wound/Ulcer Outcome Not Healed -Ulcer Cleansing Rinsed/ Irrigated with Saline -Foul Odor after Cleansing No -Bioengineered Tissue Yes -Type of Bioengineered Tissue Apligraf -Expiration Date 11/15/19 -Product Lot Number [id number] -Percent Used 60 -Saline Lot Number [id number] -Bleeding Controlled with Pressure -Offloading No -Treatment Response Procedure Tolerated Well -Debridement - Subq, 1st 20sq cm No -Apply Skin Sub - 1st 25 sq cm - Legs 1 -Apligraf (per sq cm) 44 Query Text:1 sheet = 44 sq cm [See Physician Procedure note for Specifics] Pain Scale: 0-10 Numeric [Pain] -Is Patient Pain Free? Yes - Nurse 3 - General Ulcer D/C NN Start: 11/06/19 14:59 Freq: Status: Active Protocol: Activity Type Activity Date Activity User E-Sign Co-Sign Detail Recorded Client Recorded Date Recorded By Document 11/06/19 15:40 BMF [id number] 11/06/19 15:41 BMF 11/06/19 15:40 Wound Care Nurse 3 [Wound Dressing] #1 L Med LE -Primary Dressing Applied Other -Other Dressing APLIGRAPH PER ANIBAL ALFARO -Primary Dressing Covered/Secured Dry Gauze with [Compression Applied] Left -Multi-Layered Wrap Application Multi-Layer Comp - Left ($) Vital Signs [Pulse] -Pulse Rate (60-100) 84 -Pulse Location Monitor [Respirations] -Respiratory Rate (12-18) 16 -Respiratory rate source Observation -Oxygen Delivery Method Room Air [Blood Pressure] -Blood Pressure (90/60-120/80) 152/87 H -Blood Pressure Mean (mm Hg) 108 -Source Monitor -Position Sitting -Blood Pressure Location Right Arm Pain Scale: 0-10 Numeric [Pain] -Is Patient Pain Free? Yes WC - Visit Discharge [Visit Discharge Information] -Discharge Condition Stable -Ambulatory Status Ambulatory -Transportation Private Auto Neurological: Neuro grossly intact Psych/Mental Status: Normal Affect, Appropriate, Alert and oriented to time, place, person, mood and affect Debridement Note Post-Debridement Measurements/Treatment WC - Nurse 2 - General Ulcer CM Notes Start: 11/06/19 14:59 Freq: Status: Active Protocol: Activity Type Activity Date Activity User E-Sign Co-Sign Detail Recorded Client Recorded Date Recorded By Document 11/06/19 15:21 MW [id number] 11/06/19 15:27 MW 11/06/19 15:21 Wound Center Nurse 2 #1 L Med LE -Time 15:21 -Correct Patient Yes -Correct Side, Site, Position Yes -Correct Procedure Yes -Procedure Performed Yes -Type of Procedure Debridement -Clinical Debridement Subcutaneous -Tissue Removed Subcutaneous -Post Debridement (cm) - Length 0.6 -Post Debridement (cm) - Width 0.6 -Post Debridement (cm) - Depth 0.1 -Total Square (Post) (cm) 0.36 -Area of Debridement (cm) - Length 0.6 -Area of Debridement (cm) - Width 0.6 -Total Square (Area) (cm) 0.36 -Tunneling No -Undermining/Tunneling No -Circular Undermining No -Wound/Ulcer Outcome Not Healed -Ulcer Cleansing Rinsed/ Irrigated with Saline -Foul Odor after Cleansing No -Bioengineered Tissue Yes -Type of Bioengineered Tissue Apligraf -Expiration Date 11/15/19 -Product Lot Number [id number] -Percent Used 60 -Saline Lot Number [id number] -Bleeding Controlled with Pressure -Offloading No -Treatment Response Procedure Tolerated Well -Debridement - Subq, 1st 20sq cm No -Apply Skin Sub - 1st 25 sq cm - Legs 1 -Apligraf (per sq cm) 44 Query Text:1 sheet = 44 sq cm Pain Scale: 0-10 Numeric Is Patient Pain Free? Yes - Nurse 3 - General Ulcer D/C NN Start: 11/06/19 14:59 Freq: Status: Active Protocol: Activity Type Activity Date Activity User E-Sign Co-Sign Detail Recorded Client Recorded Date Recorded By Document 11/06/19 15:40 [facility] [id number] 11/06/19 15:41 [facility] 11/06/19 15:40 Wound Care Nurse 3 #1 L Med LE -Primary Dressing Applied Other -Other Dressing APLIGRAPH PER ANIBAL ALFARO -Primary Dressing Covered/Secured with Dry Gauze Left -Multi-Layered Wrap Application Multi-Layer Comp - Left ($) Vital Signs Pulse Rate (60-100) 84 Pulse Location Monitor Respiratory Rate (12-18) 16 Respiratory rate source Observation Oxygen Delivery Method Room Air Blood Pressure (90/60-120/80) 152/87 H Blood Pressure Mean (mm Hg) 108 Source Monitor Position Sitting Blood Pressure Location Right Arm Pain Scale: 0-10 Numeric Is Patient Pain Free? Yes - Visit Discharge Discharge Condition Stable Ambulatory Status Ambulatory Transportation Private Auto Wound debrided: Venous leg ulcer left lower extremity Laterality: Left Type of Debridement: Excisional debridement Anesthesia Used: 5% Lidocaine Gel Depth: in the subcutaneous layer Percentage of wound debrided: 100 Instrument Used: 5mm curette Tissue Removed: Slough and devitalized tissue Severity: Fat Layer Exposed Amount of bleeding with debridement: Mild Bleeding Controlled with: Pressure Patient tolerated procedure well Assessment/Plan Active Problems PVD (peripheral vascular disease) (Acute) Nonhealing ulcer of left lower extremity with fat layer exposed (Acute) Venous stasis ulcer of left lower leg with edema of left lower leg (Acute) fat layer exposed Assessment: See above diagnoses Plan: The patient was seen and examined at the wound center today and was updated on the plan of care. The patients wound care will consist of: apligraf #6 was utilized, 50% was used and secured with Adaptic touch and Steri's, 3M wraps with compression. Baseline bloodwork done over 2 weeks ago and still waiting to receive results and vascular studies will be held at this time, reconsider if no significant wound improvement. Patient educated on the importance of diet on wound healing and instructed to increase protein and vitamin C intake. Patient verbalized understanding. given the delayed wound healing and venous component of his ulcer in fact that it has been now more than 4 weeks with out substantial improvement, will apply for advanced skin substitute . Patient has been advised to elevate lower extremities as much as possible. Elevation is to be implemented during daytime hours and legs are to be elevated to heart level, or higher, as much as possible. Prolonged idle sitting has been discouraged. Activity and ambulation has been encouraged. Patient will follow up at wound healing center in one week or sooner if needed. This note was generated with [employer] dictation software. It may contain incorrect words, spelling, and punctuation that were not noted in checking the note before signing. [id number]: [id number] Skin sub graft trnk/arm/leg
[2019-11-13 15:04] VITALS: BP 157/90; PULSE 78; RESP 18; TEMP 36.1; BMI 36.8
[2019-11-13 15:38] VITALS: BP 150/88; PULSE 78; RESP 18
--- NOTE | 2019-11-14 08:59 | PN.PCM_ITS ---
(1) Venous stasis ulcer of left lower leg with edema of left lower leg Status: Acute Current Visit: Yes Code(s): I83.029 - Varicose veins of left lower extremity with ulcer of unspecified site; I83.892 - Varicose veins of left lower extremity with other complications; L97.929 - Non-pressure chronic ulcer of unspecified part of left lower leg with unspecified severity; R60.9 - Edema, unspecified Comment: fat layer exposed (2) Diabetes Status: Acute Current Visit: No Code(s): E11.9 - Type 2 diabetes mellitus without complications (3) Nonhealing ulcer of left lower extremity with fat layer exposed Status: Acute Current Visit: Yes Code(s): L97.922 - Non-pressure chronic u lcer of unspecified part of left lower leg with fat layer exposed (4) PVD (peripheral vascular disease) Status: Acute Current Visit: Yes Code(s): I73.9 - Peripheral vascular disease, unspecified (5) Hypertension Status: Chronic Current Visit: No Code(s): I10 - Essential (primary) hypertension Type of Wound Date of Service: 11/13/19 Chief Complaint: Nonhealing ulcer left lower extremity x4 weeks History of Wound: This is a 54-year-old male who presents to the wound healing center today with complaint of nonhealing ulceration to the left lower extremity x4 weeks. He has a past medical history as listed above. The patient states that he is unclear if he injured his left lower extremity, however noticed an open ulceration approximately 3 weeks ago. He is unclear whether or not there is ever an injury. He does state that he has had issues with nonhealing wounds to his lower legs in the past and that he has had varicose vein ablations. He does have a history of PVD. He has been covering the site with antibiotic ointment and gauze without much improvement. He denies any systemic or localized signs of infection at this time. Denies any other aggravating relieving factors. All other systems reviewed and negative with exception of those listed above. Progress of Wound: 08/28/2019?wound cultures were reviewed and showed Citrobacter and anaerobic bacteria, patient was previously placed on ciprofloxacin and Augmentin and instructed on starting a probiotic. Unfortunately he only picked up this ciprofloxacin. States that wound is still painful, overall wound size is improving however. 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 Denies any signs of infection, apligraf in place. Denies any fever, chills, or systemic or localized signs of infection. 09/11/2019?wound cultures were reviewed and showed Citrobacter and anaerobic bacteria again, patient placed back on Cipro and Augmentin which was sensitive, also advised to continue with probiotic. Patient still notes pain in his wound. First application of Apligraf today, tolerated the 3M wraps well.FMLA forms to be filled out as patient cannot work on his feet due to the pain from the wound. He will be released to work once his wound is healed and or his pain diminishes. 09/18/19-patient did well with Apligraf and 3M wrap, no new concerns, lidocaine and epi was utilized prior to debridement for better tolerability. 09/25/19-patient did well with Apligraf and 3M wrap, no new concerns, lidocaine and epi was utilized prior to debridement for better tolerability. 10/02/2019?patient doing well with Apligraf and 3M wrap, no new concerns, Apligraf in place, will leave on for another week. Patient denies any signs of infection. the patient otherwise denies any fever, chills, nausea, vomiting, shortness of breath, chest pain or pressure, palpitations, orthopnea, lower extremity edema, syncope or presyncopal episodes. 10/09/2019?patient doing well with Apligraf and 3M wrap, no new concerns, or application of Apligraf don lied today and will be left on for 2 weeks. Slow clinical improvement in wound size. 10/16/2019?patient doing well with Apligraf and 3M wrap, no new concerns, Apligraf in place, will leave on for another week. Patient denies any signs of infection. the patient otherwise denies any fever, chills, nausea, vomiting, shortness of breath, chest pain or pressure, palpitations, orthopnea, lower extremity edema, syncope or presyncopal episodes. 10/23/2019?patient doing well with Apligraf and 3M wrap, no new concerns, 5th application of Apligraf applied today and will be left on for 2 weeks. Slow clinical improvement in wound size, although patient's wound is improving and showing benefit from the Apligraf. 11/06/19-patient did well with Apligraf and 3M wrap, no new concerns, 6th application of apligraf today. 11/13/19-patient did well with Apligraf and 3M wrap, no new concerns, 7th application of apligraf today - Physical Exam Vital Signs Temp Pulse Resp BP Pulse Ox 97 F L 78 18 150/88 H 97 11/13/19 15:04 11/13/19 15:38 11/13/19 15:38 11/13/19 15:38 11/06/19 00:33 General: Alert, Oriented x3, Cooperative, No apparent distress HEENT: Atraumatic Oral: Moist Mucosa Lungs: Clear to auscultation, Normal air movement Cardiovascular: Regular rate, Regular Rhythm, Normal S1, Normal S2 Abdomen: Soft, Non Tender Extremities: No clubbing, No cyanosis, Edema - Generalized bilateral lower extremity edema, Peripheral Pulses Normal Skin: Ulcer/ Wound - See nursing documentation, small amount of slough and devitalized tissue present, no signs of infection at this time Wound Measurements and Assessment WC - Nurse 1 - General Ulcer Measurement Start: 11/06/19 14:59 Freq: Status: Active Protocol: Activity Type Activity Date Activity User E-Sign Co-Sign Detail Recorded Client Recorded Date Recorded By Document 11/13/19 15:04 RB [id number] 11/13/19 15:06 RB 11/13/19 15:04 Wound Center Nurse 1 [Ulcer Assessment] #1 L Med LE -Combined with other wound No -Current Size (cm) - Length 0.4 -Current Size (cm) - Width 0.6 -Current Size (cm) - Depth 0.1 -Total Square Cm 0.24 -Tunneling No -Undermining/Tunneling No -Circular Undermining No -Exudate Amt Small -Exudate Type Serosanguineous -Wound Margin Flat & Intact -Granulation Amt Large (67-100%) -Granulation Quality [place],Red -Slough/Fibrin Yes -Necrosis Amt Small (1-33%) -Necrotic Tissue Type Adherent Slough -Structure Exposed N/A -Texture (Charissa-wound Skin Appearance) Assessed -Moisture (Charissa-wound Skin Appearance Assessed,Dry/ ) Scaly -Color (Charissa-wound Skin Appearance) Assessed -Temperature (Charissa-wound Skin No Abnormality Appearance) (Pt Warm) -Tenderness on Palpation (Charissa-wound No Skin Appearance) -Ulcer Cleansing Wound Cleanser -Foul Odor after Cleansing No -Anesthetic Used 4% Lidocaine Solution [Edema Assessment] -Lower Limb Edema Present Yes -Left Calf (cm) 37 -Left Ankle (cm) 22.6 WC - Nurse 2 - General Ulcer CM Notes Start: 11/06/19 14:59 Freq: Status: Active Protocol: Activity Type Activity Date Activity User E-Sign Co-Sign Detail Recorded Client Recorded Date Recorded By Document 11/13/19 15:25 MW [id number] 11/13/19 15:27 MW 11/13/19 15:25 Wound Center Nurse 2 [Procedure/Treatment] #1 L Med LE -Time 15:25 -Correct Patient Yes -Correct Side, Site, Position Yes -Correct Procedure Yes -Procedure Performed Yes -Type of Procedure Debridement -Clinical Debridement Subcutaneous -Tissue Removed Subcutaneous -Post Debridement (cm) - Length 0.5 -Post Debridement (cm) - Width 0.4 -Post Debridement (cm) - Depth 0.1 -Total Square (Post) (cm) 0.20 -Area of Debridement (cm) - Length 0.5 -Area of Debridement (cm) - Width 0.4 -Total Square (Area) (cm) 0.20 -Tunneling No -Undermining/Tunneling No -Circular Undermining No -Wound/Ulcer Outcome Not Healed -Ulcer Cleansing Rinsed/ Irrigated with Saline -Foul Odor after Cleansing No -Bioengineered Tissue Yes -Type of Bioengineered Tissue Apligraf -Expiration Date 11/15/19 -Product Lot Number [id number] -Percent Used 25 -Saline Lot Number [id number] -Bleeding Controlled with Pressure -Offloading No -Treatment Response Procedure Tolerated Well -Debridement - Subq, 1st 20sq cm No -Apply Skin Sub - 1st 25 sq cm - Legs 1 -Apligraf (per sq cm) 44 Query Text:1 sheet = 44 sq cm [See Physician Procedure note for Specifics] Pain Scale: 0-10 Numeric [Pain] -Is Patient Pain Free? Yes WC - Nurse 3 - General Ulcer D/C NN Start: 11/06/19 14:59 Freq: Status: Active Protocol: Activity Type Activity Date Activity User E-Sign Co-Sign Detail Recorded Client Recorded Date Recorded By Document 11/13/19 15:38 RB [id number] 11/13/19 15:39 RB 11/13/19 15:38 Wound Care Nurse 3 [Wound Dressing] #1 L Med LE -Primary Dressing Covered/Secured Dry Gauze with [Compression Applied] Left -Multi-Layered Wrap Application Multi-Layer Comp - Left ($) [Post Procedure Tolerated] -Treatment Response Procedure Tolerated Well Vital Signs [Pulse] -Pulse Rate (60-100) 78 -Pulse Location Monitor [Respirations] -Respiratory Rate (12-18) 18 -Respiratory rate source Observation [Blood Pressure] -Blood Pressure (90/60-120/80) 150/88 H -Blood Pressure Mean (mm Hg) 108 -Source Monitor -Position Sitting -Blood Pressure Location Left Arm Pain Scale: 0-10 Numeric [Pain] -Is Patient Pain Free? Yes Teaching: Wound Center [Wound Center Education] (Items with an * have Printed Materials Available- Please identify what is given to patient under the Teaching materials given to patient and caregiver Section. Compression Wraps & Stockings -Person Taught Patient -Teaching Method Discussion -Response to teaching Verbalize understanding WC - Visit Discharge [Visit Discharge Information] -Discharge Condition Stable -Ambulatory Status Ambulatory -Transportation Private Auto -Medication Reconcilliation completed No & provided to patient/care provider -Clinical Summary of Care Provided Yes Neurological: Neuro grossly intact Psych/Mental Status: Normal Affect, Appropriate, Alert and oriented to time, place, person, mood and affect Debridement Note Post-Debridement Measurements/Treatment WC - Nurse 2 - General Ulcer CM Notes Start: 11/06/19 14:59 Freq: Status: Active Protocol: Activity Type Activity Date Activity User E-Sign Co-Sign Detail Recorded Client Recorded Date Recorded By Document 11/06/19 15:21 MW [id number] 11/06/19 15:27 MW Document 11/13/19 15:25 MW [id number] 11/13/19 15:27 MW 11/06/19 11/13/19 15:21 15:25 Wound Center Nurse 2 #1 L Med LE -Time 15: 15:25 -Correct Patient Yes Yes -Correct Side, Site, Position Yes Yes -Correct Procedure Yes Yes -Procedure Performed Yes Yes -Type of Procedure Debridement Debridement -Clinical Debridement Subcutaneous Subcutaneous -Tissue Removed Subcutaneous Subcutaneous -Post Debridement (cm) - Length 0.6 0.5 -Post Debridement (cm) - Width 0.6 0.4 -Post Debridement (cm) - Depth 0.1 0.1 -Total Square (Post) (cm) 0.36 0.20 -Area of Debridement (cm) - Length 0.6 0.5 -Area of Debridement (cm) - Width 0.6 0.4 -Total Square (Area) (cm) 0.36 0.20 -Tunneling No No -Undermining/Tunneling No No -Circular Undermining No No -Wound/Ulcer Outcome Not Healed Not Healed -Ulcer Cleansing Rinsed/ Rinsed/ Irrigated with Irrigated with Saline Saline -Foul Odor after Cleansing No No -Bioengineered Tissue Yes Yes -Type of Bioengineered Tissue Apligraf Apligraf -Expiration Date 11/15/19 11/15/19 -Product Lot Number [id number] -Percent Used 60 25 -Saline Lot Number [id number] -Bleeding Controlled with Pressure Pressure -Offloading No No -Treatment Response Procedure Procedure Tolerated Well Tolerated Well -Debridement - Subq, 1st 20sq cm No No -Apply Skin Sub - 1st 25 sq cm - Legs 1 1 -Apligraf (per sq cm) 44 44 Query Text:1 sheet = 44 sq cm Pain Scale: 0-10 Numeric Is Patient Pain Free? Yes Yes - Nurse 3 - General Ulcer D/C NN Start: 11/06/19 14:59 Freq: Status: Active Protocol: Activity Type Activity Date Activity User E-Sign Co-Sign Detail Recorded Client Recorded Date Recorded By Document 11/06/19 15:40 [facility] [id number] 11/06/19 15:41 [facility] Document 11/13/19 15:38 RB [id number] 11/13/19 15:39 RB 11/06/19 11/13/19 15:40 15:38 Wound Care Nurse 3 #1 L Med LE -Primary Dressing Applied Other -Other Dressing APLIGRAPH PER ANIBAL ALFARO -Primary Dressing Covered/Secured with Dry Gauze Dry Gauze Left -Multi-Layered Wrap Application Multi-Layer Multi-Layer Comp - Left ($) Comp - Left ($) Treatment Response Procedure Tolerated Well Vital Signs Pulse Rate (60-100) 84 78 Pulse Location Monitor Monitor Respiratory Rate (12-18) 16 18 Respiratory rate source Observation Observation Oxygen Delivery Method Room Air Blood Pressure (90/60-120/80) 152/87 H 150/88 H Blood Pressure Mean (mm Hg) 108 108 Source Monitor Monitor Position Sitting Sitting Blood Pressure Location Right Arm Left Arm Pain Scale: 0-10 Numeric Is Patient Pain Free? Yes Yes Teaching: Wound Center Compression Wraps & Stockings -Person Taught Patient -Teaching Method Discussion -Response to teaching Verbalize understanding WC - Visit Discharge Discharge Condition Stable Stable Ambulatory Status Ambulatory Ambulatory Transportation Private Auto Private Auto Medication Reconcilliation completed & No provided to patient/care provider Clinical Summary of Care Provided Yes Wound debrided: Left venous leg ulcer Laterality: Left Type of Debridement: Excisional debridement Anesthesia Used: 5% Lidocaine Gel Depth: in the subcutaneous layer Percentage of wound debrided: 100 Instrument Used: 5mm curette Tissue Removed: Slough and devitalized tissue Severity: Fat Layer Exposed Amount of bleeding with debridement: Mild Bleeding Controlled with: Pressure Patient tolerated procedure well Assessment/Plan Active Problems PVD (peripheral vascular disease) (Acute) Nonhealing ulcer of left lower extremity with fat layer exposed (Acute) Venous stasis ulcer of left lower leg with edema of left lower leg (Acute) fat layer exposed Assessment: See above diagnoses Plan: The patient was seen and examined at the wound center today and was updated on the plan of care. The patients wound care will consist of: apligraf #7 was utilized, 25% was used and secured with Adaptic touch and Steri's, 3M wraps with compression. Baseline bloodwork done over 2 weeks ago and still waiting to receive results and vascular studies will be held at this time, reconsider if no significant wound improvement. Patient educated on the importance of diet on wound healing and instructed to increase protein and vitamin C intake. Patient verbalized understanding. given the delayed wound healing and venous component of his ulcer in fact that it has been now more than 4 weeks with out substantial improvement, will apply for advanced skin substitute . Patient has been advised to elevate lower extremities as much as possible. Elevation is to be implemented during daytime hours and legs are to be elevated to heart level, or higher, as much as possible. Prolonged idle sitting has been discouraged. Activity and ambulation has been encouraged. Patient will follow up at wound healing center in one week or sooner if needed. This note was generated with [employer] software. It may contain incorrect words, spelling, and punctuation that were not noted in checking the note before signing. [id number]: [id number] Skin sub graft trnk/arm/leg
[2019-11-20 14:57] VITALS: BP 158/86; PULSE 81; RESP 16; TEMP 36.5; BMI 36.8
--- NOTE | 2019-11-20 17:02 | PCM.WC.PN ---
(1) Venous stasis ulcer of left lower leg with edema of left lower leg Status: Acute Code(s): I83.029 - Varicose veins of left lower extremity with ulcer of unspecified site; I83.892 - Varicose veins of left lower extremity with other complications; L97.929 - Non-pressure chronic ulcer of unspecified part of left lower leg with unspecified severity; R60.9 - Edema, unspecified Comment: fat layer exposed (2) Diabetes Status: Acute Code(s): E11.9 - Type 2 diabetes mellitus without complications (3) Nonhealing ulcer of left lower extremity with fat layer exposed Status: Acute Code(s): L97.922 - Non-pressure chronic ulcer of unspecified part of left lower leg with fat layer exposed (4) PVD (peripheral vascular disease) Status: Acute Code(s): I73.9 - Peripheral vascular disease, unspecified (5) Hypertension Status: Chronic Code(s): I10 - Essential (primary) hypertension Type of Wound Date of Service: 11/20/19 Chief Complaint: Nonhealing ulcer left lower extremity x4 weeks History of Wound: This is a 54-year-old male who presents to the wound healing center today with complaint of nonhealing ulceration to the left lower extremity x4 weeks. He has a past medical history as listed above. The patient states that he is unclear if he injured his left lower extremity, however noticed an open ulceration approximately 3 weeks ago. He is unclear whether or not there is ever an injury. He does state that he has had issues with nonhealing wounds to his lower legs in the past and that he has had varicose vein ablations. He does have a history of PVD. He has been covering the site with antibiotic ointment and gauze without much improvement. He denies any systemic or localized signs of infection at this time. Denies any other aggravating relieving factors. All other systems reviewed and negative with exception of those listed above. Progress of Wound: 08/28/2019?wound cultures were reviewed and showed Citrobacter and anaerobic bacteria, patient was previously placed on ciprofloxacin and Augmentin and instructed on starting a probiotic. Unfortunately he only picked up this ciprofloxacin. States that wound is still painful, overall wound size is improving however. 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 Denies any signs of infection, apligraf in place. Denies any fever, chills, or systemic or localized signs of infection. 09/11/2019?wound cultures were reviewed and showed Citrobacter and anaerobic bacteria again, patient placed back on Cipro and Augmentin which was sensitive, also advised to continue with probiotic. Patient still notes pain in his wound. First application of Apligraf today, tolerated the 3M wraps well.FMLA forms to be filled out as patient cannot work on his feet due to the pain from the wound. He will be released to work once his wound is healed and or his pain diminishes. 09/18/19-patient did well with Apligraf and 3M wrap, no new concerns, lidocaine and epi was utilized prior to debridement for better tolerability. 09/25/19-patient did well with Apligraf and 3M wrap, no new concerns, lidocaine and epi was utilized prior to debridement for better tolerability. 10/02/2019?patient doing well with Apligraf and 3M wrap, no new concerns, Apligraf in place, will leave on for another week. Patient denies any signs of infection. the patient otherwise denies any fever, chills, nausea, vomiting, shortness of breath, chest pain or pressure, palpitations, orthopnea, lower extremity edema, syncope or presyncopal episodes. 10/09/2019?patient doing well with Apligraf and 3M wrap, no new concerns, or application of Apligraf applied today and will be left on for 2 weeks. Slow clinical improvement in wound size. 10/16/2019?patient doing well with Apligraf and 3M wrap, no new concerns, Apligraf in place, will leave on for another week. Patient denies any signs of infection. the patient otherwise denies any fever, chills, nausea, vomiting, shortness of breath, chest pain or pressure, palpitations, orthopnea, lower extremity edema, syncope or presyncopal episodes. 10/23/2019?patient doing well with Apligraf and 3M wrap, no new concerns, 5th application of Apligraf applied today and will be left on for 2 weeks. Slow clinical improvement in wound size, although patient's wound is improving and showing benefit from the Apligraf. 11/06/19-patient did well with Apligraf and 3M wrap, no new concerns, 6th application of apligraf today. 11/13/19-patient did well with Apligraf and 3M wrap, no new concerns, 7th application of apligraf today. 11/20/19-patient did well with Apligraf and 3M wrap, no new concerns, 7th application of apligraf today - Physical Exam Vital Signs Temp Pulse Resp BP Pulse Ox 97.7 F L 81 16 158/86 H 97 11/20/19 14:57 11/20/19 14:57 11/20/19 14:57 11/20/19 14:57 11/06/19 00:33 General: Alert, Oriented x3, Cooperative, No apparent distress HEENT: Atraumatic Oral: Moist Mucosa Lungs: Clear to auscultation, Normal air movement Cardiovascular: Regular rate Abdomen: Soft Extremities: No clubbing, No cyanosis, No edema Skin: Ulcer/ Wound - See nursing documentation, slough and devitalized tissue present, no signs of infection at this time Wound Measurements and Assessment WC - Nurse 1 - General Ulcer Measurement Start: 11/06/19 14:59 Freq: Status: Active Protocol: Activity Type Activity Date Activity User E-Sign Co-Sign Detail Recorded Client Recorded Date Recorded By Document 11/20/19 14:57 MW [id number] 11/20/19 15:03 MW 11/20/19 14:57 Wound Center Nurse 1 [Ulcer Assessment] #1 L Med LE -Combined with other wound No -Current Size (cm) - Length 0.1 -Current Size (cm) - Width 0.1 -Current Size (cm) - Depth 0.1 -Total Square Cm 0.01 -Photo Taken No -Epithelialization Small 1-33% -Tunneling No -Undermining/Tunneling No -Circular Undermining No -Exudate Amt None Present -Wound Margin Flat & Intact -Granulation Amt None Present (0 %) -Granulation Quality N/A -Slough/Fibrin Yes -Necrosis Amt Small (1-33%) -Necrotic Tissue Type Adherent Slough -Structure Exposed N/A -Texture (Charissa-wound Skin Appearance) Assessed, Scarring -Moisture (Charissa-wound Skin Appearance Assessed,Dry/ ) Scaly -Color (Charissa-wound Skin Appearance) No Abnormality, Assessed -Temperature (Charissa-wound Skin No Abnormality Appearance) (Pt Warm) -Tenderness on Palpation (Charissa-wound Yes Skin Appearance) -Ulcer Cleansing soap and water -Foul Odor after Cleansing No -Anesthetic Used 4% Lidocaine Solution [Edema Assessment] -Lower Limb Edema Present Yes -Left Calf (cm) 36.5 -Left Ankle (cm) 22.5 WC - Nurse 2 - General Ulcer CM Notes Start: 11/06/19 14:59 Freq: Status: Active Protocol: Activity Type Activity Date Activity User E-Sign Co-Sign Detail Recorded Client Recorded Date Recorded By Document 11/20/19 15:20 MW [id number] 11/20/19 15:24 MW 11/20/19 15:20 Wound Center Nurse 2 [Procedure/Treatment] #1 L Med LE -Time 15:22 -Correct Patient Yes -Correct Side, Site, Position Yes -Correct Procedure Yes -Procedure Performed Yes -Type of Procedure Debridement -Clinical Debridement Subcutaneous -Tissue Removed Subcutaneous -Post Debridement (cm) - Length 0.4 -Post Debridement (cm) - Width 0.3 -Post Debridement (cm) - Depth 0.1 -Total Square (Post) (cm) 0.12 -Area of Debridement (cm) - Length 0.4 -Area of Debridement (cm) - Width 0.3 -Total Square (Area) (cm) 0.12 -Tunneling No -Undermining/Tunneling No -Circular Undermining No -Wound/Ulcer Outcome Not Healed -Ulcer Cleansing Rinsed/ Irrigated with Saline -Foul Odor after Cleansing No -Bioengineered Tissue No -Bleeding Controlled with Pressure -Offloading No -Debridement - Subq, 1st 20sq cm No [See Physician Procedure note for Specifics] Pain Scale: 0-10 Numeric [Pain] -Is Patient Pain Free? Yes Neurological: Neuro grossly intact Psych/Mental Status: Normal Affect, Appropriate, Alert and oriented to time, place, person, mood and affect Debridement Note Post-Debridement Measurements/Treatment WC - Nurse 2 - General Ulcer CM Notes Start: 11/06/19 14:59 Freq: Status: Active Protocol: Activity Type Activity Date Activity User E-Sign Co-Sign Detail Recorded Client Recorded Date Recorded By Document 11/06/19 15:21 MW [id number] 11/06/19 15:27 MW Document 11/13/19 15:25 MW [id number] 11/13/19 15:27 MW Document 11/20/19 15:20 MW [id number] 11/20/19 15:24 MW 11/06/19 11/13/19 11/20/19 15:21 15:25 15:20 Wound Center Nurse 2 #1 L Bong LE -Time : 15:25 15:22 -Correct Patient Yes Yes Yes -Correct Side, Site, Position Yes Yes Yes -Correct Procedure Yes Yes Yes -Procedure Performed Yes Yes Yes -Type of Procedure Debridement Debridement Debridement -Clinical Debridement Subcutaneous Subcutaneous Subcutaneous -Tissue Removed Subcutaneous Subcutaneous Subcutaneous -Post Debridement (cm) - Length 0.6 0.5 0.4 -Post Debridement (cm) - Width 0.6 0.4 0.3 -Post Debridement (cm) - Depth 0.1 0.1 0.1 -Total Square (Post) (cm) 0.36 0.20 0.12 -Area of Debridement (cm) - Length 0.6 0.5 0.4 -Area of Debridement (cm) - Width 0.6 0.4 0.3 -Total Square (Area) (cm) 0.36 0.20 0.12 -Tunneling No No No -Undermining/Tunneling No No No -Circular Undermining No No No -Wound/Ulcer Outcome Not Healed Not Healed Not Healed -Ulcer Cleansing Rinsed/ Rinsed/ Rinsed/ Irrigated with Irrigated with Irrigated with Saline Saline Saline -Foul Odor after Cleansing No No No -Bioengineered Tissue Yes Yes No -Type of Bioengineered Tissue Apligraf Apligraf -Expiration Date 11/15/19 11/15/19 -Product Lot Number [id number] -Percent Used 60 25 -Saline Lot Number [id number] -Bleeding Controlled with Pressure Pressure Pressure -Offloading No No No -Treatment Response Procedure Procedure Tolerated Well Tolerated Well -Debridement - Subq, 1st 20sq cm No No No -Apply Skin Sub - 1st 25 sq cm - Legs 1 1 -Apligraf (per sq cm) 44 44 Pain Scale: 0-10 Numeric Is Patient Pain Free? Yes Yes Yes WC - Nurse 3 - General Ulcer D/C NN Start: 11/06/19 14:59 Freq: Status: Active Protocol: Activity Type Activity Date Activity User E-Sign Co-Sign Detail Recorded Client Recorded Date Recorded By Document 11/06/19 15:40 BMF [id number] 11/06/19 15:41 BM Document 11/13/19 15:38 RB [id number] 11/13/19 15:39 RB 11/06/19 11/13/19 15:40 15:38 Wound Care Nurse 3 #1 L Med LE -Primary Dressing Applied Other -Other Dressing APLIGRAPH PER ANIBAL ALFARO -Primary Dressing Covered/Secured with Dry Gauze Dry Gauze Left -Multi-Layered Wrap Application Multi-Layer Multi-Layer Comp - Left ($) Comp - Left ($) Treatment Response Procedure Tolerated Well Vital Signs Pulse Rate (60-100) 84 78 Pulse Location Monitor Monitor Respiratory Rate (12-18) 16 18 Respiratory rate source Observation Observation Oxygen Delivery Method Room Air Blood Pressure (90/60-120/80) 152/87 H 150/88 H Blood Pressure Mean (mm Hg) 108 108 Source Monitor Monitor Position Sitting Sitting Blood Pressure Location Right Arm Left Arm Pain Scale: 0-10 Numeric Is Patient Pain Free? Yes Yes Teaching: Wound Center Compression Wraps & Stockings -Person Taught Patient -Teaching Method Discussion -Response to teaching Verbalize understanding WC - Visit Discharge Discharge Condition Stable Stable Ambulatory Status Ambulatory Ambulatory Transportation Private Auto Private Auto Medication Reconcilliation completed & No provided to patient/care provider Clinical Summary of Care Provided Yes Wound debrided: Left venous leg ulcer Laterality: Left Type of Debridement: Excisional debridement Anesthesia Used: 5% Lidocaine Gel Depth: in the subcutaneous layer Percentage of wound debrided: 100 Instrument Used: 3mm curette Tissue Removed: Slough and devitalized tissue Severity: Fat Layer Exposed Amount of bleeding with debridement: Mild Bleeding Controlled with: Pressure Patient tolerated procedure well Assessment/Plan Assessment: See above diagnoses Plan: The patient was seen and examined at the wound center today and was updated on the plan of care. The patients wound care will consist of: apligraf #8 was utilized, 25% was used and secured with Adaptic touch and Steri's, 3M wraps with compression. Baseline bloodwork done over 2 weeks ago and still waiting to receive results and vascular studies will be held at this time, reconsider if no significant wound improvement. Patient educated on the importance of diet on wound healing and instructed to increase protein and vitamin C intake. Patient verbalized understanding. given the delayed wound healing and venous component of his ulcer in fact that it has been now more than 4 weeks with out substantial improvement, will apply for advanced skin substitute . Patient has been advised to elevate lower extremities as much as possible. Elevation is to be implemented during daytime hours and legs are to be elevated to heart level, or higher, as much as possible. Prolonged idle sitting has been discouraged. Activity and ambulation has been encouraged. Patient will follow up at wound healing center in one week or sooner if needed. This note was generated with [employer] dictation software. It may contain incorrect words, spelling, and punctuation that were not noted in checking the note before signing. [id number]: [id number] Skin sub graft trnk/arm/leg
[2019-11-27 08:51] VITALS: BP 156/85; PULSE 70; RESP 18; TEMP 36.7; BMI 36.8
--- NOTE | 2019-11-27 13:10 | PCM.WC.PN ---
(1) Nonhealing ulcer of left lower extremity with fat layer exposed Status: Acute Code(s): L97.922 - Non-pressure chronic ulcer of unspecified part of left lower leg with fat layer exposed (2) Venous stasis ulcer of left lower leg with edema of left lower leg Status: Acute Code(s): I83.029 - Varicose veins of left lower extremity with ulcer of unspecified site; I83.892 - Varicose veins of left lower extremity with other complications; L97.929 - Non-pressure chronic ulcer of unspecified part of left lower leg with unspecified severity; R60.9 - Edema, unspecified Comment: fat layer exposed (3) Venous ulcer of left leg Status: Acute Code(s): I83.029 - Varicose veins of left lower extremity with ulcer of unspecified site; L97.929 - Non-pressure chronic ulcer of unspecified part of left lower leg with unspecified severity Type of Wound Date of Service: 11/27/19 Chief Complaint: Nonhealing ulcer left lower extremity x4 weeks History of Wound: This is a 54-year-old male who presents to the wound healing center today with complaint of nonhealing ulceration to the left lower extremity x4 weeks. He has a past medical history as listed above. The patient states that he is unclear if he injured his left lower extremity, however noticed an open ulceration approximately 3 weeks ago. He is unclear whether or not there is ever an injury. He does state that he has had issues with nonhealing wounds to his lower legs in the past and that he has had varicose vein ablations. He does have a history of PVD. He has been covering the site with antibiotic ointment and gauze without much improvement. He denies any systemic or localized signs of infection at this time. Denies any other aggravating relieving factors. All other systems reviewed and negative with exception of those listed above. Progress of Wound: Courtesy Visit for Anibal Saxena NP. No new concerns at this time. Very minimal area left. - Physical Exam Vital Signs Temp Pulse Resp BP Pulse Ox 98.0 F 70 18 156/85 H 97 11/27/19 08:51 11/27/19 08:51 11/27/19 08:51 11/27/19 08:51 11/06/19 00:33 General: Alert, Oriented x3, Cooperative, No apparent distress HEENT: Atraumatic, Normocephalic Oral: Moist Mucosa Neck: Supple Lungs: Normal air movement Abdomen: Non Tender, Obese Extremities: No cyanosis Skin: Ulcer/ Wound Wound Measurements and Assessment - Nurse 1 - General Ulcer Measurement Start: 11/06/19 14:59 Freq: Status: Active Protocol: Activity Type Activity Date Activity User E-Sign Co-Sign Detail Recorded Client Recorded Date Recorded By Document 11/27/19 08:51 MT [id number] 11/27/19 08:52 MT 11/27/19 08:51 Wound Center Nurse 1 [Ulcer Assessment] #1 L Med LE -Current Size (cm) - Length 0.8 -Current Size (cm) - Width 0.2 -Current Size (cm) - Depth 0.1 -Total Square Cm 0.16 -Epithelialization Large 67-100% -Exudate Amt None Present -Granulation Amt Large (67-100%) -Granulation Quality Pale,[place] -Slough/Fibrin No -Texture (Charissa-wound Skin Appearance) Assessed -Moisture (Charissa-wound Skin Appearance Assessed ) -Color (Charissa-wound Skin Appearance) Assessed -Temperature (Charissa-wound Skin No Abnormality Appearance) (Pt Warm) -Tenderness on Palpation (Charissa-wound No Skin Appearance) -Ulcer Cleansing Rinsed/ Irrigated with Saline -Foul Odor after Cleansing No -Anesthetic Used 4% Lidocaine Solution [Edema Assessment] -Lower Limb Edema Present Yes -Left Calf (cm) 36.5 -Left Ankle (cm) 22.5 Musculoskeletal: No Muscle Wasting Neurological: Cranial nerves II-XII grossly intact Psych/Mental Status: Normal Affect Debridement Note Post-Debridement Measurements/Treatment - Nurse 2 - General Ulcer CM Notes Start: 11/06/19 14:59 Freq: Status: Active Protocol: Activity Type Activity Date Activity User E-Sign Co-Sign Detail Recorded Client Recorded Date Recorded By Document 11/06/19 15:21 MW [id number] 11/06/19 15:27 MW Document 11/13/19 15:25 MW [id number] 11/13/19 15:27 MW Document 11/20/19 15:20 MW [id number] 11/20/19 15:24 MW 11/06/19 11/13/19 11/20/19 15:21 15:25 15:20 Wound Center Nurse 2 #1 L Med LE -Time 15:21 15:25 15:22 -Correct Patient Yes Yes Yes -Correct Side, Site, Position Yes Yes Yes -Correct Procedure Yes Yes Yes -Procedure Performed Yes Yes Yes -Type of Procedure Debridement Debridement Debridement -Clinical Debridement Subcutaneous Subcutaneous Subcutaneous -Tissue Removed Subcutaneous Subcutaneous Subcutaneous -Post Debridement (cm) - Length 0.6 0.5 0.4 -Post Debridement (cm) - Width 0.6 0.4 0.3 -Post Debridement (cm) - Depth 0.1 0.1 0.1 -Total Square (Post) (cm) 0.36 0.20 0.12 -Area of Debridement (cm) - Length 0.6 0.5 0.4 -Area of Debridement (cm) - Width 0.6 0.4 0.3 -Total Square (Area) (cm) 0.36 0.20 0.12 -Tunneling No No No -Undermining/Tunneling No No No -Circular Undermining No No No -Wound/Ulcer Outcome Not Healed Not Healed Not Healed -Ulcer Cleansing Rinsed/ Rinsed/ Rinsed/ Irrigated with Irrigated with Irrigated with Saline Saline Saline -Foul Odor after Cleansing No No No -Bioengineered Tissue Yes Yes Yes -Type of Bioengineered Tissue Apligraf Apligraf Apligraf -Expiration Date 11/15/19 11/15/19 11/26/19 -Product Lot Number [id number] -Percent Used 60 25 25 -Saline Lot Number [id number] -Bleeding Controlled with Pressure Pressure Pressure -Offloading No No No -Treatment Response Procedure Procedure Tolerated Well Tolerated Well -Debridement - Subq, 1st 20sq cm No No No -Apply Skin Sub - 1st 25 sq cm - Legs 1 1 1 -Apligraf (per sq cm) 44 44 44 Pain Scale: 0-10 Numeric Is Patient Pain Free? Yes Yes Yes WC - Nurse 3 - General Ulcer D/C NN Start: 11/06/19 14:59 Freq: Status: Active Protocol: Activity Type Activity Date Activity User E-Sign Co-Sign Detail Recorded Client Recorded Date Recorded By Document 11/06/19 15:40 [facility] [id number] 11/06/19 15:41 [facility] Document 11/13/19 15:38 RB [id number] 11/13/19 15:39 RB 11/06/19 11/13/19 15:40 15:38 Wound Care Nurse 3 #1 L Med LE -Primary Dressing Applied Other -Other Dressing APLIGRAPH PER ANIBAL SAXENA -Primary Dressing Covered/Secured with Dry Gauze Dry Gauze Left -Multi-Layered Wrap Application Multi-Layer Multi-Layer Comp - Left ($) Comp - Left ($) Treatment Response Procedure Tolerated Well Vital Signs Pulse Rate (60-100 beats/min) 84 78 Pulse Location Monitor Monitor Respiratory Rate (12-18 breaths/min) 16 18 Respiratory rate source Observation Observation Oxygen Delivery Method Room Air Blood Pressure (90/60-120/80 mm Hg) 152/87 H 150/88 H Blood Pressure Mean (mm Hg) 108 108 Source Monitor Monitor Position Sitting Sitting Blood Pressure Location Right Arm Left Arm Pain Scale: 0-10 Numeric Is Patient Pain Free? Yes Yes Teaching: Wound Center Compression Wraps & Stockings -Person Taught Patient -Teaching Method Discussion -Response to teaching Verbalize understanding WC - Visit Discharge Discharge Condition Stable Stable Ambulatory Status Ambulatory Ambulatory Transportation Private Auto Private Auto Medication Reconcilliation completed & No provided to patient/care provider Clinical Summary of Care Provided Yes No debridement was completed today Assessment/Plan Active Problems PVD (peripheral vascular disease) (Acute) Nonhealing ulcer of left lower extremity with fat layer exposed (Acute) Diabetes (Acute) Hypertension (Chronic) Venous stasis ulcer of left lower leg with edema of left lower leg (Acute) fat layer exposed Assessment: See above diagnoses Plan: Courtesy Visit for Anibal Saxena DNP. No new concerns at this time. Very minimal area left. No debridement completed today. Pomogran with adaptic over top. Leave in place for 1 week. 3M wraps for edema management. Continue other wound care management. His questions were answered and he was advised to call with any further questions or concerns. Follow up as scheduled. This note was generated with [employer] dictation software. It may contain incorrect words, spelling, and punctuation that were not noted in checking the note before signing. Office Visits / Consults: [id number] OV L3 Est
[2019-12-03 10:06] VITALS: BP 150/87; PULSE 80; RESP 18; TEMP 36.8; BMI 36.8
--- NOTE | 2019-12-03 11:07 | PCM.WC.PN ---
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 Status: Acute Code(s): L97.922 - Non-pressure chronic ulcer of unspecified part of left lower leg with fat layer exposed (3) PVD (peripheral vascular disease) Status: Acute Code(s): I73.9 - Peripheral vascular disease, unspecified (4) Venous stasis ulcer of left lower leg with edema of left lower leg Status: Acute Code(s): I83.029 - Varicose veins of left lower extremity with ulcer of unspecified site; I83.892 - Varicose veins of left lower extremity with other complications; L97.929 - Non-pressure chronic ulcer of unspecified part of left lower leg with unspecified severity; R60.9 - Edema, unspecified Comment: fat layer exposed (5) Venous ulcer of left leg Status: Acute Code(s): I83.029 - Varicose veins of left lower extremity with ulcer of unspecified site; L97.929 - Non-pressure chronic ulcer of unspecified part of left lower leg with unspecified severity (6) Hypertension Status: Chronic Code(s): I10 - Essential (primary) hypertension Type of Wound Date of Service: 12/03/19 Chief Complaint: Nonhealing ulcer left lower extremity x4 weeks History of Wound: This is a 54-year-old male who presents to the wound healing center today with complaint of nonhealing ulceration to the left lower extremity x4 weeks. He has a past medical history as listed above. The patient states that he is unclear if he injured his left lower extremity, however noticed an open ulceration approximately 3 weeks ago. He is unclear whether or not there is ever an injury. He does state that he has had issues with nonhealing wounds to his lower legs in the past and that he has had varicose vein ablations. He does have a history of PVD. He has been covering the site with antibiotic ointment and gauze without much improvement. He denies any systemic or localized signs of infection at this time. Denies any other aggravating relieving factors. All other systems reviewed and negative with exception of those listed above. Progress of Wound: Courtesy Visit for Anibal Saxena, [employer]\. Wound is healed patient will be discharged from the wound center - Physical Exam Vital Signs Temp Pulse Resp BP Pulse Ox 98.3 F 80 18 150/87 H 97 12/03/19 10:06 12/03/19 10:06 12/03/19 10:06 12/03/19 10:06 11/06/19 00:33 General: Oriented x3, Cooperative, Well developed HEENT: Atraumatic, PERRLA Oral: Moist Mucosa Neck: Supple, No JVD Lungs: Clear to auscultation, Normal air movement Cardiovascular: Regular rate, Regular Rhythm Abdomen: Bowel Sounds Present, Soft, Non Tender, No Hepato-splenomegaly Extremities: No clubbing, No edema Skin: Ulcer/ Wound - Left lower leg wound Wound Measurements and Assessment WC - Nurse 1 - General Ulcer Measurement Start: 11/06/19 14:59 Freq: Status: Discharge Protocol: Activity Type Activity Date Activity User E-Sign Co-Sign Detail Recorded Client Recorded Date Recorded By Document 12/03/19 10:06 RB [id number] 12/03/19 10:13 RB Edit Status 12/03/19 10:46 BKG DAEMON Active=>Discharge [id number] 12/03/19 10:46 BKG DAEMON 12/03/19 10:06 Wound Center Nurse 1 [Ulcer Assessment] #1 L Med LE -Combined with other wound No -Current Size (cm) - Length 0 -Current Size (cm) - Width 0 -Current Size (cm) - Depth 0 -Total Square Cm 0 -Epithelialization Large 67-100% [Edema Assessment] -Lower Limb Edema Present Yes -Left Calf (cm) 38 -Left Ankle (cm) 22.5 - Nurse 2 - General Ulcer CM Notes Start: 11/06/19 14:59 Freq: Status: Discharge Protocol: Activity Type Activity Date Activity User E-Sign Co-Sign Detail Recorded Client Recorded Date Recorded By Document 12/03/19 10:17 MW [id number] 12/03/19 10:23 MW Edit Status 12/03/19 10:46 BKG DAEMON Active=>Discharge [id number] 12/03/19 10:46 BKG DAEMON 12/03/19 10:17 Wound Center Nurse 2 [Procedure/Treatment] #1 L Med LE -Time 10:19 -Correct Patient Yes -Correct Side, Site, Position Yes -Correct Procedure Yes -Procedure Performed No -Post Debridement (cm) - Length 0 -Post Debridement (cm) - Width 0 -Post Debridement (cm) - Depth 0 -Total Square (Post) (cm) 0 -Wound/Ulcer Outcome Healed- Epithelialized [See Physician Procedure note for Specifics] Pain Scale: 0-10 Numeric [Pain] -Is Patient Pain Free? Yes WC - Nurse 3 - General Ulcer D/C NN Start: 11/06/19 14:59 Freq: Status: Discharge Protocol: Activity Type Activity Date Activity User E-Sign Co-Sign Detail Recorded Client Recorded Date Recorded By Document 12/03/19 10:25 MW [id number] 12/03/19 10:25 MW Edit Status 12/03/19 10:46 BKG DAEMON Active=>Discharge [id number] 12/03/19 10:46 BKG DAEMON 12/03/19 10:25 Wound Care Nurse 3 [Compression Applied] Left -Lotion applied to leg before No compression wrap -Size of Tubigrip Used Size E -Size E ($) 1 [Post Procedure Tolerated] -Treatment Response Procedure Tolerated Well Teaching: Wound Center [Wound Center Education] (Items with an * have Printed Materials Available- Please identify what is given to patient under the Teaching materials given to patient and caregiver Section. Discharge Instructions -Person Taught Patient -Teaching Method Discussion -Response to teaching Verbalize understanding Compression Wraps & Stockings -Person Taught Patient -Teaching Method Discussion -Response to teaching Verbalize understanding WC - Visit Discharge [Visit Discharge Information] -Discharge Condition Stable -Ambulatory Status Ambulatory -Transportation Private Auto -Accompanied by self -Medication Reconcilliation completed No & provided to patient/care provider -Clinical Summary of Care Provided Yes -Notes: healed, discharged from clinic Musculoskeletal: No Tenderness to Palpation of Joints or Extremities Lymphatic: No Cervical, Supraclavicular, or Inguinal Adenopathy Neurological: Cranial nerves II-XII grossly intact, Neuro grossly intact Psych/Mental Status: Normal Affect, Appropriate Debridement Note Post-Debridement Measurements/Treatment WC - Nurse 2 - General Ulcer CM Notes Start: 11/06/19 14:59 Freq: Status: Discharge Protocol: Activity Type Activity Date Activity User E-Sign Co-Sign Detail Recorded Client Recorded Date Recorded By Document 11/06/19 15:21 MW [id number] 11/06/19 15:27 MW Document 10/08/20 15:25 MW [id number] 11/13/19 15:27 MW Document 11/20/19 15:20 MW [id number] 11/20/19 15:24 MW Document 11/27/19 09:00 MW [id number] 12/01/19 11:27 MW Document 12/03/19 10:17 MW [id number] 12/03/19 10:23 MW 11/06/19 11/13/19 11/20/19 15:21 15:25 15:20 Wound Center Nurse 2 #1 L Med LE -Time : 15:25 15:22 -Correct Patient Yes Yes Yes -Correct Side, Site, Position Yes Yes Yes -Correct Procedure Yes Yes Yes -Procedure Performed Yes Yes Yes -Type of Procedure Debridement Debridement Debridement -Clinical Debridement Subcutaneous Subcutaneous Subcutaneous -Tissue Removed Subcutaneous Subcutaneous Subcutaneous -Post Debridement (cm) - Length 0.6 0.5 0.4 -Post Debridement (cm) - Width 0.6 0.4 0.3 -Post Debridement (cm) - Depth 0.1 0.1 0.1 -Total Square (Post) (cm) 0.36 0.20 0.12 -Area of Debridement (cm) - Length 0.6 0.5 0.4 -Area of Debridement (cm) - Width 0.6 0.4 0.3 -Total Square (Area) (cm) 0.36 0.20 0.12 -Tunneling No No No -Undermining/Tunneling No No No -Circular Undermining No No No -Wound/Ulcer Outcome Not Healed Not Healed Not Healed -Ulcer Cleansing Rinsed/ Rinsed/ Rinsed/ Irrigated with Irrigated with Irrigated with Saline Saline Saline -Foul Odor after Cleansing No No No -Bioengineered Tissue Yes Yes Yes -Type of Bioengineered Tissue Apligraf Apligraf Apligraf -Expiration Date 11/15/19 11/15/19 11/26/19 -Product Lot Number [id number] -Percent Used 60 25 25 -Saline Lot Number [id number] -Bleeding Controlled with Pressure Pressure Pressure -Offloading No No No -Treatment Response Procedure Procedure Tolerated Well Tolerated Well -Debridement - Subq, 1st 20sq cm No No No -Apply Skin Sub - 1st 25 sq cm - Legs 1 1 1 -Apligraf (per sq cm) 44 44 44 Pain Scale: 0-10 Numeric Is Patient Pain Free? Yes Yes Yes 11/27/19 12/03/19 09:00 10:17 Wound Center Nurse 2 #1 L Med LE -Time 09:00 10:19 -Correct Patient Yes Yes -Correct Side, Site, Position Yes Yes -Correct Procedure Yes Yes -Procedure Performed No No -Type of Procedure -Clinical Debridement -Tissue Removed -Post Debridement (cm) - Length 0 -Post Debridement (cm) - Width 0 -Post Debridement (cm) - Depth 0 -Total Square (Post) (cm) 0 -Area of Debridement (cm) - Length -Area of Debridement (cm) - Width -Total Square (Area) (cm) -Tunneling No -Undermining/Tunneling No -Circular Undermining No -Wound/Ulcer Outcome Not Healed Healed- Epithelialized -Ulcer Cleansing Rinsed/ Irrigated with Saline -Foul Odor after Cleansing No -Bioengineered Tissue No -Type of Bioengineered Tissue -Expiration Date -Product Lot Number -Percent Used -Saline Lot Number -Bleeding Controlled with NA -Offloading No -Treatment Response -Debridement - Subq, 1st 20sq cm -Apply Skin Sub - 1st 25 sq cm - Legs -Apligraf (per sq cm) Pain Scale: 0-10 Numeric Is Patient Pain Free? Yes Yes - Nurse 3 - General Ulcer D/C NN Start: 11/06/19 14:59 Freq: Status: Discharge Protocol: Activity Type Activity Date Activity User E-Sign Co-Sign Detail Recorded Client Recorded Date Recorded By Document 11/06/19 15:40 F [id number] 11/06/19 15:41 BMF Document 11/13/19 15:38 RB [id number] 11/13/19 15:39 RB Document 11/27/19 09:05 MW [id number] 12/01/19 11:28 MW Document 12/03/19 10:25 MW [id number] 12/03/19 10:25 MW 11/06/19 11/13/19 11/27/19 15:40 15:38 09:05 Wound Care Nurse 3 #1 L Med LE -Ulcer Cleansing Rinsed/ Irrigated with Saline -Foul Odor after Cleansing No -Negative Pressure Wound Therapy N/A -Primary Dressing Applied Other Promogran -Other Dressing APLIGRAPH PER ANIBAL SAXENA -Primary Dressing Covered/Secured with Dry Gauze Dry Gauze Dry Gauze -Promogran 1 Left -Lotion applied to leg before Yes compression wrap -Multi-Layered Wrap Application Multi-Layer Multi-Layer Multi-Layer Comp - Left ($) Comp - Left ($) Comp - Left ($) -Size of Tubigrip Used -Size E ($) Treatment Response Procedure Procedure Tolerated Well Tolerated Well Vital Signs Pulse Rate (60-100 beats/min) 84 78 Pulse Location Monitor Monitor Respiratory Rate (12-18 breaths/min) 16 18 Respiratory rate source Observation Observation Oxygen Delivery Method Room Air Blood Pressure (90/60-120/80 mm Hg) 152/87 H 150/88 H Blood Pressure Mean (mm Hg) 108 108 Source Monitor Monitor Position Sitting Sitting Blood Pressure Location Right Arm Left Arm Pain Scale: 0-10 Numeric Is Patient Pain Free? Yes Yes Teaching: Wound Center Discharge Instructions -Person Taught -Teaching Method -Response to teaching Compression Wraps & Stockings -Person Taught Patient -Teaching Method Discussion -Response to teaching Verbalize understanding Dressing Your Wound -Person Taught Patient -Teaching Method Discussion -Response to teaching Verbalize understanding WC - Visit Discharge Discharge Condition Stable Stable Ambulatory Status Ambulatory Ambulatory Transportation Private Auto Private Auto Accompanied by Medication Reconcilliation completed & No provided to patient/care provider Clinical Summary of Care Provided Yes Notes: 12/03/19 10:25 Wound Care Nurse 3 #1 L Med LE -Ulcer Cleansing -Foul Odor after Cleansing -Negative Pressure Wound Therapy -Primary Dressing Applied -Other Dressing -Primary Dressing Covered/Secured with -Promogran Left -Lotion applied to leg before No compression wrap -Multi-Layered Wrap Application -Size of Tubigrip Used Size E -Size E ($) 1 Treatment Response Procedure Tolerated Well Vital Signs Pulse Rate (60-100 beats/min) Pulse Location Respiratory Rate (12-18 breaths/min) Respiratory rate source Oxygen Delivery Method Blood Pressure (90/60-120/80 mm Hg) Blood Pressure Mean (mm Hg) Source Position Blood Pressure Location Pain Scale: 0-10 Numeric Is Patient Pain Free? Teaching: Wound Center Discharge Instructions -Person Taught Patient -Teaching Method Discussion -Response to teaching Verbalize understanding Compression Wraps & Stockings -Person Taught Patient -Teaching Method Discussion -Response to teaching Verbalize understanding Dressing Your Wound -Person Taught -Teaching Method -Response to teaching WC - Visit Discharge Discharge Condition Stable Ambulatory Status Ambulatory Transportation Private Auto Accompanied by self Medication Reconcilliation completed & No provided to patient/care provider Clinical Summary of Care Provided Yes Notes: healed, discharged from clinic No debridement was completed today Assessment/Plan Active Problems PVD (peripheral vascular disease) (Acute) Nonhealing ulcer of left lower extremity with fat layer exposed (Acute) Diabetes (Acute) Hypertension (Chronic) Venous stasis ulcer of left lower leg with edema of left lower leg (Acute) fat layer exposed Venous ulcer of left leg (Acute) Assessment: See above diagnoses Plan: Courtesy Visit for Anibal Saxena DNP. Patient will be discharged from the wound center follow-up as needed. Measured for compression stockings he can buy [id number] 20 to 30 mmHg. Also suggested using AmLactin cream to legs for the dry skin
== END 2019-12-03 10:46 | disposition home or self-care (01) ==
LOC: WC 10:00
PROVIDERS: PCP Family Medicine; Referring Provider Family Medicine; Visit Provider Nurse Practitioner Family
DX: I83.028 Varicose veins of left lower extremity with ulcer other part of lower leg (principal); E11.51 Type 2 diabetes mellitus with diabetic peripheral angiopathy without gangrene; L97.822 Non-pressure chronic ulcer of other part of left lower leg with fat layer exposed; I10 Essential (primary) hypertension; R60.0 Localized edema
CPT/HCPCS: 15271; 29581; Q4101

== ENCOUNTER 2024-12-02 05:50 | Emergency (ER) | payer BC, SELFPAY ==
[2024-12-02 05:52] VITALS: BP 143/92; PULSE 70; RESP 18; TEMP 37; O2SAT 100; BMI 38.8
[2024-12-02] MEDS: DiphenhydrAMINE 50 MG/ML Syringe IV (06:25)
[2024-12-02] MEDS: Epi Pen (EQUIV) 0.3 MG Syringe IM (06:25)
[2024-12-02] MEDS: Famotidine 200 MG/20 ML MDV 20 MG in 0.9% Normal Saline (Pres. free 8 ML 300 MG IV ×2 (06:34→06:38)
[2024-12-02] MEDS: TRANEXAMIC ACID 1,000 MG/10 ML ML INHALATION (06:37)
--- OUTSIDE RECORDS SUMMARY | 2024-12-02 06:40 | XMS RPT_ITS | CCD ---
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 FARMER.STEWART Aleksey Unavailable Tann[employer].STEWART Lianet Unavailable Unavail able Tann[employer].STEWART Lianet Unavailable GRETA WOODSON Attending Unavailable ANIBAL PERAZA Primary Care Unavailable ABDIAZIZ ALEKSEY Referring Unavailable ANIBAL PERAZA Primary Care Unavailable ABDAIZIZ ALEKSEY Referring Unavailable ANIBAL PERAZA Primary Care Unavailable YOUNG FREEDSSE Attending Unavailable ANIBAL PERAZA Primary Care Unavailable Allergies Allergy Classification Reported Allergen(s) Allergy Type Date of Onset Reaction(s) Facility (19 sources) Hazelnut; Translations: [HAZELNUT] Drug Allergy 4 [facility] (19 sources) walnut allergenic extract; Translations: [WALNUT] Drug Allergy 1 [facility] Work Phone: (7 sources) pecans [Other] Propensity to adverse reactions 6 [facility] Work Phone: (1 source) nut - unspecified Drug allergy (disorder) 0 [facility] (1 source) PECANS; Translations: [PECANS] Propensity to adverse reactions (disorder) 9 [facility] (12 sources) pecan allergenic extract; Translations: [PECAN NUT] Drug Allergy 4 Swelling [facility] Medications Current Medications Medication Drug Class(es) Dates Sig (Normalized) Sig (Original) amLODIPine 10 mg oral tablet (20 sources) Dihydropyridine Calcium Channel Madeline Start: 01-03-2021 End: 07-01-2024 take 1 tablet by mouth once daily amLODIPine (NORVASC) 10 mg tablet Take 1 tablet by mouth once daily. 90 tablet 3 07/01/2024 Active Comment on above: Take 1 tablet by gumaro th once daily. TAKE 1 TABLET BY GUMARO TH ONCE DAILY ascorbic acid 500 mg oral tablet (18 sources) Vitamin C Start: 08-06-2019 take 1 tablet by mouth once daily ascorbic acid, vitamin C, (VITAMIN C) 500 mg tablet Take 1 tablet by mouth once daily. 08/06/2019 Active Comment on above: Take 1 tablet by gumaro th once daily. B Complex-Folic Acid (B COMPLEX 1, WITH FOLIC ACID,) 0.4 mg tab (18 sources) Start: 08-06-2019 take 1 tablet by mouth once daily B Complex-Folic Acid (B COMPLEX 1, WITH FOLIC ACID,) 0.4 mg tab Take 1 tablet by mouth once daily. 08/06/2019 Active Start: 08-06-2019 take 1 tablet by gumaro th once daily B Complex-Folic Acid (B COMPLEX 1, WITH FOLIC ACID,) 0.4 mg tab Take 1 tablet by mouth once daily. 0 08/06/2019 Active Comment on above: Take 1 tablet by gumaro th once daily. cholecalciferol 0.025 mg oral capsule (18 sources) Vitamin D Start: 020 take 1 capsule by mouth once daily Cholecalciferol, Vitamin D3, 25 mcg (1,000 unit) cap Take 1 capsule by mouth once daily. 08/06/2019 Active Comment on above: Take 1 capsule by mo ut once daily. cinnamon bark 500 mg oral capsule (11 sources) Start: 024 take 2 capsules by mouth twice daily Cinnamon Bark 500 mg cap Take 2 capsules by mouth two times a day. 06/15/2023 Active lisinopril 20 mg oral tablet (20 sources) Angiotensin Converting Enzyme Inhibitor Start: End: take 1 tablet by mouth once daily lisinopril (ZESTRIL) 20 mg tablet Take 1 tablet by mouth once daily. 90 tablet 3 05/27/2024 Active Comment on above: Take 1 tablet by gumaro th once daily. TAKE 1 TABLET BY GUMARO TH EVERY DAY magnesium oxide 400 mg oral capsule (18 sources) Start: take 1 capsule by mouth once daily magnesium oxide 400 mg magnesium cap Take 1 capsule by mouth once daily. 08/06/2019 Active Comment on above: Take 1 capsule by mo [facility] once daily. OMEGA 3-VITAMIN E-FISH OIL 700 MG-15 UNIT-1,100 MG CAP (18 sources) Start: OMEGA 3-VITAMIN E-FISH OIL 700 MG-15 UNIT-1,100 MG CAP Take one(1) tablet daily. 0 12/12/2007 Active Comment on above: Take one(1) tablet d aily. rosuvastatin calcium 10 mg oral tablet (13 sources) HMG-CoA Reductase Inhibitor Start: End: take 1 tablet by mouth once daily at bedtime rosuvastatin (CRESTOR) 10 mg tablet Indications: Mixed hyperlipidemia Take 1 tablet by mouth daily at bedtime. 30 tablet 11 12/24/2023 Active Turmeric extract (5 sources) take 1 capsule by mouth once daily turmeric 400 mg cap Take 1 capsule by mouth once daily. Active valACYclovir 1000 mg oral tablet (2 sources) Herpesvirus Nucleoside Analog DNA Polymerase Inhibitor, Herpes Simplex Virus Nucleoside Analog DNA Polymerase Inhibitor, Herpes Zoster Virus Nucleoside Analog DNA Polymerase Inhibitor Start: End: take 1 tablet by mouth twice daily as needed valACYclovir (VALTREX) 1 gram tablet Indications: Herpes genitalis in men Take 1 tablet by mouth two times a day. As needed for outbreak 20 tablet 3 06/16/2024 07/26/2024 Active vitamin b12 1 mg oral tablet (11 sources) Vitamin B12 Start: take 1 tablet by mouth once daily cyanocobalamin (VITAMIN B-12) 1,000 mcg tab Take 1 tablet by mouth once daily. 06/15/2023 Active vitamin e 268 mg oral capsule (11 sources) Start: 05-10-2 024 take 1 capsule by mouth twice daily Vitamin E, dl, acetate, (VITAMIN E) 400 unit capsule Take 1 capsule by mouth two times a day. 06/15/2023 Active Zinc (18 sources) Start: take 2 tablets by mouth once daily Zinc 50 mg tab Take 2 tablets by mouth once daily. 02/09/2020 Active Start: 02-09-2020 take 2 tablets by mo [facility] once daily Zinc 50 mg tab Take 2 tablets by mouth once daily. 0 02/09/2020 Active Comment on above: Take 2 tablets by mo uth once daily. Completed/Discontinued Medications Medication Drug Class(es) Dates Sig (Normalized) Sig (Original) aspirin 81 mg delayed release oral tablet (6 sources) Platelet Aggregation Inhibitor, Nonsteroidal Anti-inflammatory Drug Start: 08-06-2019 End: 06-12-2022 take 1 tablet by mouth once daily aspirin, enteric coated (ADULT ASPIRIN REGIMEN) 81 mg EC tablet Take 1 tablet by mouth once daily. 0 08/06/2019 06/12/2022 Discontinued Comment on above: Take 1 tablet by gumaro th once daily. meloxicam 15 mg oral tablet (6 sources) Nonsteroidal Anti-inflammatory Drug Start: 01-25-2021 End: 06-12-2022 take 1 tablet by mouth once daily at mealtime meloxicam (MOBIC) 15 mg tablet Indications: Acute left-sided low back pain without sciatica Take 1 tablet by mouth once daily. Take with food. 30 tablet 1 01/25/2021 06/12/2022 Discontinued Comment on above: Take 1 tablet by gumaro th once daily. Take with food. Problems Active Problems Problem Classification Problem Date Documented Da te Episodic/Chronic Adjustment disorders (18 sources) Adjustment disorder with depressed mood; Translations: [Adjustment disorder with depressed mood] Onset: 05-03-2005 05-03-2005 Chronic Allergic reactions (2 sources) Urticaria, unspecified; Translations: [Allergy to other foods] Onset: 11-21-2024 Episodic Anxiety disorders (18 sources) Anxiety state; Translations: [Generalized anxiety disorder] Onset: 05-03-2005 12-31-2017 Chronic Diabetes mellitus without complication (20 sources) Impaired fasting glycemia; Translations: [Impaired fasting glucose] Onset: 06-26-2006 06-26-2006 Episodic Disorders of lipid metabolism (20 sources) Mixed hyperlipidemia; Translations: [Mixed hyperlipidemia] Onset: 12-31-2017 12-31-2017 Chronic Essential hypertension (20 sources) Benign essential hypertension; Translations: [Essential (primary) hypertension] Onset: 03-29-2005 03-29-2005 Chronic Fluid and electrolyte disorders (2 sources) Hypokalemia; Translations: [Hypokalemia] Episodic Malaise and fatigue (1 source) Other fatigue; Translations: [Fatigue, unspecified type] Onset: 11-21-2024 Episodic Nutritional deficiencies (2 sources) Vitamin D deficiency; Translations: [Vitamin D deficiency, unspecified] 06-15-2023 Chronic Other non-traumatic joint disorders (1 source) Stiffness of right shoulder, not elsewhere classified; Translations: [Decreased range of motion of right shoulder] Onset: 11-21-2024 Episodic Other nutritional; endocrine; and metabolic disorders (18 sources) Obesity; Translations: [Obesity, unspecified] 03-29-2005 Chronic Other screening for suspected conditions (not mental disorders or infectious disease) (6 sources) Patient encounter status; Translations: [Encounter for screening for malignant neoplasm of prostate] Onset: 11-21-2024 Episodic Other skin disorders (1 source) Eruption; Translations: [Rash and other nonspecific skin eruption] 02-13-2024 Episodic Other skin disorders (1 source) Localized swelling, mass and lump, head; Translations: [Left facial swelling] Onset: 11-21-2024 Episodic Sprains and strains (1 source) Strain of biceps brachii muscle and/or tendon; Translations: [Strain of muscle, fascia and tendon of other parts of biceps, left arm, initial encounter] Episodic Viral infection (1 source) 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; Translations: [Genital herpes, unspecified] 06-16-2024 Chronic Past or Other Problems Problem Classification Problem Date Documented Da te Episodic/Chronic Alcohol-related disorders (12 sources) Alcohol dependence; Translations: [Alcohol dependence, uncomplicated] Resolved: 7 02-28-2006 Chronic Diabetes mellitus without complication (20 sources) Type 2 diabetes mellitus without complication; Translations: [Type 2 diabetes mellitus without complications] Onset: 5 Resolved: 3 03-08-2016 Chronic Esophageal disorders (12 sources) Gastroesophageal reflux disease; Translations: [Gastro-esophageal reflux disease without esophagitis] Onset: 6 Resolved: 7 02-28-2006 Chronic Gastrointestinal hemorrhage (18 sources) Hemorrhage of rectum and anus; Translations: [Hemorrhage of anus and rectum] Onset: 7 05-29-2006 Episodic Nonmalignant breast conditions (20 sources) Hypertrophy of breast; Translations: [Hypertrophy of breast] Onset: 7 Resolved: 7 02-28-2006 Episodic Other connective tissue disease (18 sources) Dysfunction of posterior tibial tendon; Translations: [Posterior tibial tendinitis, unspecified leg] Onset: 9 04-15-2018 Episodic Other diseases of veins and lymphatics (18 sources) Vascular insufficiency; Translations: [Venous insufficiency (chronic) (peripheral)] Onset: 0 08-06-2019 Episodic Other skin disorders (1 source) Rash and other nonspecific skin eruption; Translations: [Rash] Onset: 5 Episodic Varicose veins of lower extremity (1 source) 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 11-24-2024 [facility] Telephone (SHANTI) PHILOMENA OLMSTEAD ([id number]) 1965 M Date Time Provider Department 11/24/24 [facility] During your visit today, we recorded the following information about you: Waleska Michel LPN 11/24/2024 9:22 AM Signed Patient calling he stopped the Prednisone rx after 2 doses. His fasting blood sugar was 260 and he did not like that it was going higher. Patient said he is not wanting to take anymore. Aleksey Freed APRN.[facility] 11/24/2024 9:26 AM Signed Oksushila noted. Aleksey Freed APRN.CNP Allergies As of Date: 11/24/2024 Noted Allergy Reaction HAZELNUT 05/14/2013 7 - Swelling Comments: Facial swelling, hives PECAN NUT 06/15/2023 7 - Swelling WALNUT 12/23/2010 7 - Swelling Date Reviewed: 11/21/2024 Reviewed by: Aleksey Freed APRN.CNP - Fully Assessed Reason for Visit: Patient Update [1234] Prescriptions as of 11/24/2024 - predniSONE (DELTASONE) 20 mg tablet Take 2 tablets by mouth once daily for 5 days. - amLODIPine (NORVASC) 10 mg tablet Take 1 tablet by mouth once daily. - lisinopril (ZESTRIL) 20 mg tablet Take 1 tablet by mouth once daily. - turmeric 400 mg cap Take 1 capsule by mouth once daily. - rosuvastatin (CRESTOR) 10 mg tablet Take 1 tablet by mouth daily at bedtime. - Vitamin E, dl, acetate, (VITAMIN E) 400 unit capsule Take 1 capsule by mouth two times a day. - Cinnamon Bark 500 mg cap Take 2 capsules by mouth two times a day. - cyanocobalamin (VITAMIN B-12) 1,000 mcg tab Take 1 tablet by mouth once daily. - Zinc 50 mg tab Take 2 tablets by mouth once daily. - ascorbic acid, vitamin C, (VITAMIN C) 500 mg tablet Take 1 tablet by mouth once daily. - magnesium oxide 400 mg magnesium cap Take 1 capsule by mouth once daily. - B Complex-Folic Acid (B COMPLEX 1, WITH FOLIC ACID,) 0.4 mg tab Take 1 tablet by mouth once daily. - Cholecalciferol, Vitamin D3, 25 mcg (1,000 unit) cap Take 1 capsule by mouth once daily. - OMEGA 3-VITAMIN E-FISH OIL 700 MG-15 UNIT-1,100 MG CAP Take one(1) tablet daily. Problem List As Of Date 11/24/2024 Noted Resolved DIABETES MELLITUS TYPE II-UNCOMPL [E11.9] 06/26/2006 Mixed hyperlipidemia [E78.2] BENIGN HYPERTENSION [I10] OBESITY NOS [E66.9] HYPERTROPHY OF BREAST [N62] 02/28/2006 ALCOH DEP NEC/NOS-UNSPEC [F10.20] 02/28/2006 ESOPHAGEAL REFLUX [K21.9] 05/03/2005 02/28/2006 Anxiety state [F41.1] 05/03/2005 ADJUSTMENT DISORDER WITH DEPRESSED MOOD [F43.21]05/03/2005 HYPERTROPHY OF BREAST [N62] 02/28/2006 RECTAL AND ANAL HEMORRHAGE [K62.5] 05/29/2006 IMPAIRED FASTING GLUCOSE [R73.01] 06/26/2006 Type 2 diabetes mellitus without complication, *09/28/2014 06/12/2022 Posterior tibial tendon dysfunction [M76.829] 04/15/2018 Venous insufficiency [I87.2] 08/06/2019 Encounter Status:Closed by ALEKSEY FREED on 11/24/24 Normal [facility] HbA1c (Bld)on 11-24-2024 Average glucose Estimated from glycated hemoglobin (Bld) [Mass/Vol] 123 mg/dL Normal [facility] Comment on above: Order Comment: Keegan aguirre Type: BLOOD SPECIMEN Ordering Facility: [facility] Address: [address] [place] [address] Result Comment: eAG: (Estimated average glucose) is a calculated value from HgbA1c and is medical representative of the average blood glucose level in the last 2-3 month period. Performed By: #### 5 5454-3 #### [facility] CLIA [id number] [address] [place] [address] [place] HbA1c (Bld) [Mass fraction] 5.9 % High 4.3-5.6 [facility] Comment on above: Order Comment: Keegan aguirre Type: BLOOD SPECIMEN Ordering Facility: [facility] Address: [address] [place] [address] Result Comment: [place] Diabetes Association guidelines indicate that patients with HgbA1c in the range 5.7-6.4% are at increased risk for development of diabetes, and intervention by lifestyle modification may be beneficial. HgbA1c greater or equal to 6.5% is considered diagnostic of diabetes. Performed By: #### 5 5454-3 #### [facility] CLIA [id number] [address] [place] [address] [place] CBC W Auto Differential pane l (Bld)on 11-21-2024 Basophils (Bld) [#/Vol] 0.03 10*3/uL Normal <0.11 [facility] Comment on above: Order Comment: Speci men Type: BLOOD SPECIMEN Ordering Facility: [facility] Address: [address] [place] [address] Performed By: #### 5 7021-8 #### [facility] CLIA [id number] [address] [place] [address] [place] Basophils/100 WBC (Bld) 0.7 % Normal [facility] Comment on above: Order Comment: Speci men Type: BLOOD SPECIMEN Ordering Facility: [facility] Address: [address] [place] [address] Performed By: #### 5 7021-8 #### [facility] CLIA [id number] [address] [place] [address] [place] Differential cell count method Nom (Bld) Auto Normal [facility] Comment on above: Order Comment: Speci men Type: BLOOD SPECIMEN Ordering Facility: [facility] Address: [address] [place] [address] Performed By: #### 5 7021-8 #### [facility] CLIA [id number] [address] [place] [address] [place] Eosinophils (Bld) [#/Vol] 0.10 10*3/uL Normal <0.46 [facility] Comment on above: Order Comment: Speci men Type: BLOOD SPECIMEN Ordering Facility: [facility] Address: [address] [place] [address] Performed By: #### 5 7021-8 #### [facility] CLIA [id number] [address] [place] [address] [place] Eosinophils/100 WBC (Bld) 2.2 % Normal [facility] Comment on above: Order Comment: Speci men Type: BLOOD SPECIMEN Ordering Facility: [facility] Address: [address] [place] [address] Performed By: #### 5 7021-8 #### [facility] CLIA [id number] [address] [place] [address] [place] Erythrocyte distribution width (RBC) [Ratio] 12.2 % Normal 11.5-15.0 [facility] Comment on above: Order Comment: Speci men Type: BLOOD SPECIMEN Ordering Facility: [facility] Address: [address] [place] [address] Performed By: #### 5 7021-8 #### [facility] CLIA [id number] [address] [place] [address] [place] Hematocrit (Bld) [Volume fraction] 44.5 % Normal 39.0-51.0 [facility] Comment on above: Order Comment: Speci men Type: BLOOD SPECIMEN Ordering Facility: [facility] Address: [address] [place] [address] Performed By: #### 5 7021-8 #### [facility] CLIA [id number] [address] [place] [address] [place] Hemoglobin (Bld) [Mass/Vol] 14.5 g/dL Normal 13.0-17.0 [facility] Comment on above: Order Comment: Speci men Type: BLOOD SPECIMEN Ordering Facility: [facility] Address: [address] [place] [address] Performed By: #### 5 7021-8 #### [facility] CLIA [id number] [address] [place] [address] [place] Immature granulocytes (Bld) [#/Vol] 10*3/uL Normal <0.10 [facility] Comment on above: Order Comment: Speci men Type: BLOOD SPECIMEN Ordering Facility: [facility] Address: [address] [place] [address] Performed By: #### 5 7021-8 #### [facility] CLIA [id number] [address] [place] [address] [place] Immature granulocytes/100 WBC (Bld) 0.2 % Normal [facility] Comment on above: Order Comment: Speci men Type: BLOOD SPECIMEN Ordering Facility: [facility] Address: [address] [place] [address] Performed By: #### 5 7021-8 #### [facility] CLIA [id number] [address] [place] [address] [place] Lymphocytes (Bld) [#/Vol] 1.40 10*3/uL Normal 1.00-4.00 [facility] Comment on above: Order Comment: Speci men Type: BLOOD SPECIMEN Ordering Facility: [facility] Address: [address] [place] [address] Performed By: #### 5 7021-8 #### [facility] CLIA [id number] [address] [place] [address] [place] Lymphocytes/100 WBC (Bld) 31.0 % Normal [facility] Comment on above: Order Comment: Speci men Type: BLOOD SPECIMEN Ordering Facility: [facility] Address: [address] [place] [address] Performed By: #### 5 7021-8 #### [facility] CLIA [id number] [address] [place] [address] [place] MCH (RBC) [Entitic mass] 29.7 pg Normal 26.0-34.0 [facility] Comment on above: Order Comment: Speci men Type: BLOOD SPECIMEN Ordering Facility: [facility] Address: [address] [place] [address] Performed By: #### 5 7021-8 #### [facility] CLIA [id number] [address] [place] [address] [place] MCHC (RBC) [Mass/Vol] 32.6 g/dL Normal 30.5-36.0 [facility] Comment on above: Order Comment: Speci men Type: BLOOD SPECIMEN Ordering Facility: [facility] Address: [address] [place] [address] Performed By: #### 5 7021-8 #### [facility] CLIA [id number] [address] [place] [address] [place] MCV (RBC) [Entitic vol] 91.0 fL Normal 80.0-100.0 [facility] Comment on above: Order Comment: Speci men Type: BLOOD SPECIMEN Ordering Facility: [facility] Address: [address] [place] [address] Performed By: #### 5 7021-8 #### [facility] CLIA [id number] [address] [place] [address] [place] Monocytes (Bld) [#/Vol] 0.45 10*3/uL Normal <0.87 [facility] Comment on above: Order Comment: Speci men Type: BLOOD SPECIMEN Ordering Facility: [facility] Address: [address] [place] [address] Performed By: #### 5 7021-8 #### [facility] CLIA [id number] [address] [place] [address] [place] Monocytes/100 WBC (Bld) 10.0 % Normal [facility] Comment on above: Order Comment: Speci men Type: BLOOD SPECIMEN Ordering Facility: [facility] Address: [address] [place] [address] Performed By: #### 5 7021-8 #### [facility] CLIA [id number] [address] [place] [address] [place] Neutrophils (Bld) [#/Vol] 2.52 10*3/uL Normal 1.45-7.50 [facility] Comment on above: Order Comment: Speci men Type: BLOOD SPECIMEN Ordering Facility: [facility] Address: [address] [place] [address] Performed By: #### 5 7021-8 #### [facility] CLIA [id number] [address] [place] [address] [place] Neutrophils/100 WBC (Bld) 55.9 % Normal [facility] Comment on above: Order Comment: Speci men Type: BLOOD SPECIMEN Ordering Facility: [facility] Address: [address] [place] [address] Performed By: #### 5 7021-8 #### [facility] CLIA [id number] [address] [place] [address] [place] Nucleated RBC (Bld) [#/Vol] 10*3/uL Normal <0.01 [facility] Comment on above: Order Comment: Speci men Type: BLOOD SPECIMEN Ordering Facility: [facility] Address: [address] [place] [address] Performed By: #### 5 7021-8 #### [facility] CLIA [id number] [address] [place] [address] [place] Nucleated RBC/100 WBC (Bld) [Ratio] 0.0 /100 WBC Normal [facility] Comment on above: Order Comment: Speci men Type: BLOOD SPECIMEN Ordering Facility: [facility] Address: [address] [place] [address] Performed By: #### 5 7021-8 #### [facility] CLIA [id number] [address] [place] [address] [place] Platelet mean volume (Bld) [Entitic vol] 11.1 fL Normal 9.0-12.7 [facility] Comment on above: Order Comment: Speci men Type: BLOOD SPECIMEN Ordering Facility: [facility] Address: [address] [place] [address] Performed By: #### 5 7021-8 #### [facility] CLIA [id number] [address] [place] [address] [place] Platelets (Bld) [#/Vol] 190 10*3/uL Normal 150-400 [facility] Comment on above: Order Comment: Speci men Type: BLOOD SPECIMEN Ordering Facility: [facility] Address: [address] [place] [address] Performed By: #### 5 7021-8 #### [facility] CLIA [id number] [address] [place] [address] [place] RBC (Bld) [#/Vol] 4.89 10*6/uL Normal 4.20-6.00 [facility] Comment on above: Order Comment: Speci men Type: BLOOD SPECIMEN Ordering Facility: [facility] Address: [address] [place] [address] Performed By: #### 5 7021-8 #### [facility] CLIA [id number] [address] [place] [address] [place] WBC (Bld) [#/Vol] 4.51 10*3/uL Normal 3.70-11.00 [facility] Comment on above: Order Comment: Speci men Type: BLOOD SPECIMEN Ordering Facility: [facility] Address: [address] [place] [address] Performed By: #### 5 7021-8 #### [facility] CLIA [id number] [address] [place] [address] [place] CNOVon 11-21-2024 [facility] PHILOMENA OLMSTEAD ([id number]) 1965 M Date Time Provider Department 11/21/24 9:00 AM [facility] During your visit today, we recorded the following information about you: Pulse Respiration Blood pressure Weight 76/minute 16/minute 134/86 129.7 kg Height 1.842 m Aleksey Freed APRN.[employer] IN[employer] 11/21/2024 9:44 AM Signed Chief Complaint Patient presents with: Yearly Exam HPI Philomena Olmstead is a 59 year old male who presents here today for physical. Philomena is a 59-year-old male with a history of allergies, HTN, and HLD, presenting with facial swelling and hives. Philomena reports facial swelling that began after consuming a new type of cereal, Cinnamon Chex, at 1600 yesterday. He has a known allergy to pecans and walnuts and suspects the cereal may have triggered the reaction. The swelling is localized to the face, does not cause pain, and is similar to previous allergic reactions he has experienced. He denies any dyspnea or other systemic symptoms. Additionally, Philomena reports a recent onset of hives and skin irritation, which he attributes to using a new combination of scented detergents. He describes his skin as very sensitive and notes that he has been experiencing these symptoms for the past week. He has a history of similar reactions and has been using a daily sinus medication for the past 8-9 years to manage chronic rhinorrhea. Philomena also reports chronic dry skin on his legs, which he has had for approximately 15 years. He avoids using lotion as he believes it exacerbates the dryness. In addition to his dermatological concerns, Philomena reports right shoulder pain and weakness that has been ongoing for 7-8 months. 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 He notes that the pain is exacerbated by lifting and has recently started to affect his ability to perform tasks at work. He denies any acute injury to the shoulder. Philomena has a family history of diabetes and is concerned about his own risk, noting a previous HbA1c of 5.7%. He also inquires about his PSA levels and expresses a desire to monitor his overall health, including kidney and liver function. He is currently taking amlodipine 10 mg and lisinopril 20 mg for HTN, as well as Crestor 10 mg for HLD. He denies any issues with these medications. Philomena declines the flu, shingles, and COVID-19 vaccines. He had a colonoscopy in 2019, with benign biopsies, and was advised to have a follow-up in 5 years due to a family history of colon cancer. Past medical history, appointments, medications, allergies reviewed. Previous Medical History PAST MEDICAL HISTORY Diagnosis Date Esophagitis, unspecified Essential hypertension, benign Family history of malignant neoplasm of gastrointestinal tract family history of colon cancer Genital herpes Hemorrhage of rectum and anus Hypertrophy of breast Obesity, unspecified Other and unspecified alcohol dependence, unspecified drinking behavior ETOH depend. syn. Other and unspecified hyperlipidemia Type II or unspecified type diabetes mellitus without mention of complication, not stated as uncontrolled Unspecified gastritis and gastroduodenitis without mention of hemorrhage Previous Surgical History PAST SURGICAL HISTORY Procedure Laterality Date COLONOSCOPY 2006 incomplete due to tortuosity of colon COLONOSCOPY FLX DX W/COLLJ SPEC WHEN PFRMD 11/20/2018 Colonoscopy EGD TRANSORAL BIOPSY SINGLE/MULTIPLE 07/20/09 PAST SURGICAL HISTORY OF LLE cyst Family History FAMILY HISTORY Problem Relation Age of Onset Diabetes Mother Diabetes Father Colon Cancer Father Patient Allergies ALLERGIES Allergen Reactions Hazelnut Swelling Facial swelling, hives Pecan Nut Swelling Hazel Green Swelling Current Medications Current Outpatient Medications on File Prior to Visit Medication Sig amLODIPine (NORVASC) 10 mg tablet Take 1 tablet by mouth once daily. lisinopril (ZESTRIL) 20 mg tablet Take 1 tablet by mouth once daily. turmeric 400 mg cap Take 1 capsule by mouth once daily. rosuvastatin (CRESTOR) 10 mg tablet Take 1 tablet by mouth daily at bedtime. Vitamin E, dl, acetate, (VITAMIN E) 400 unit capsule Take 1 capsule by mouth two times a day. Cinnamon Bark 500 mg cap Take 2 capsules by mouth two times a day. cyanocobalamin (VITAMIN B-12) 1,000 mcg tab Take 1 tablet by mouth once daily. Zinc 50 mg tab Take 2 tablets by mouth once daily. ascorbic acid, vitamin C, (VITAMIN C) 500 mg tablet Take 1 tablet by mouth once daily. magnesium oxide 400 mg magnesium cap Take 1 capsule by mouth once daily. B Complex-Folic Acid (B COMPLEX 1, WITH FOLIC ACID,) 0.4 mg tab Take 1 tablet by mouth once daily. Cholecalciferol, Vitamin D3, 25 mcg (1,000 unit) cap Take 1 capsule by mouth once daily. OME (more content not included)... Normal [facility] Comprehensive metabolic 2000 panelon 11-21-2024 Albumin [Mass/Vol] 4.4 g/dL Normal 3.9-4.9 [facility] Comment on above: Order Comment: Speci men Type: BLOOD SPECIMEN Ordering Facility: [facility] Address: [address] [place] [address] Performed By: #### 2 4323-8, 2276-4, 44156-6, 57202-4 #### [facility] CLIA [id number] [address] [place] [address] [place] ALP [Catalytic activity/Vol] 76 U/L Normal 38-113 [facility] Comment on above: Order Comment: Speci men Type: BLOOD SPECIMEN Ordering Facility: [facility] Address: [address] [place] [address] Performed By: #### 2 4323-8, 6-4, 71785-2, 82610-0 #### [facility] CLIA [id number] [address] [place] [address] [place] ALT [Catalytic activity/Vol] 25 U/L Normal 10-54 [facility] Comment on above: Order Comment: Speci men Type: BLOOD SPECIMEN Ordering Facility: [facility] Address: [address] [place] [address] Performed By: #### 2 4323-8, 6-4, 69577-4, 66275-9 #### [facility] CLIA [id number] [address] [place] [address] [place] Anion gap [Moles/Vol] 11 mmol/L Normal 8-15 [facility] Comment on above: Order Comment: Speci men Type: BLOOD SPECIMEN Ordering Facility: [facility] Address: [address] [place] [address] Performed By: #### 2 4323-8, 6-4, 56470-6, 07845-8 #### [facility] CLIA [id number] [address] [place] [address] [place] AST [Catalytic activity/Vol] 29 U/L Normal 14-40 [facility] Comment on above: Order Comment: Speci men Type: BLOOD SPECIMEN Ordering Facility: [facility] Address: [address] [place] [address] Performed By: #### 2 4323-8, 6-4, 57834-9, 21169-9 #### [facility] CLIA [id number] [address] [place] [address] [place] Bilirubin [Mass/Vol] 0.8 mg/dL Normal 0.2-1.3 [facility] Comment on above: Order Comment: Speci men Type: BLOOD SPECIMEN Ordering Facility: [facility] Address: [address] [place] [address] Performed By: #### 2 4323-8, 6-4, 69359-1, 78617-9 #### [facility] CLIA [id number] [address] [place] [address] [place] Calcium [Mass/Vol] 9.4 mg/dL Normal 8.5-10.2 [facility] Comment on above: Order Comment: Speci men Type: BLOOD SPECIMEN Ordering Facility: [facility] Address: [address] [place] [address] Performed By: #### 2 4323-8, 6-4, 78381-8, 54873-3 #### [facility] CLIA [id number] [address] [place] [address] [place] Chloride [Moles/Vol] 101 mmol/L Normal 98-107 [facility] Comment on above: Order Comment: Speci men Type: BLOOD SPECIMEN Ordering Facility: [facility] Address: [address] [place] [address] Performed By: #### 2 4323-8, 6-4, 62893-2, 19077-1 #### [facility] CLIA [id number] [address] [place] [address] [place] CO2 [Moles/Vol] 27 mmol/L Normal 22-30 [facility] Comment on above: Order Comment: Speci men Type: BLOOD SPECIMEN Ordering Facility: [facility] Address: [address] [place] [address] Performed By: #### 2 4323-8, 2275-4, 38793-8, 61072-1 #### [facility] CLIA [id number] [address] [place] [address] [place] Creatinine [Mass/Vol] 0.82 mg/dL Normal 0.73-1.22 [facility] Comment on above: Order Comment: Speci men Type: BLOOD SPECIMEN Ordering Facility: [facility] Address: [address] [place] [address] Performed By: #### 2 4323-8, 6-4, 77360-2, 79561-1 #### [facility] CLIA [id number] [address] [place] [address] [place] eGFRcr SerPlBld CKD-EPI 2020 102 mL/min/1.73m??? Normal >=60 [facility] Comment on above: Order Comment: Keegan aguirre Type: BLOOD SPECIMEN Ordering Facility: [facility] Address: [address] [place] [address] Result Comment: Arlette mated Glomerular Filtration Rate (eGFR) is calculated using the 2020 CKD-EPI creatinine equation. This equation utilizes serum creatinine, sex, and age as parameters. The creatinine assay has traceable calibration to isotope dilution-mass spectrometry. Refer to KDIGO guidelines for clinical interpretation. In patients with unstable renal function, e.g. those with acute kidney injury, the eGFR may not accurately reflect actual GFR. Performed By: #### 2 4323-8, 2276-4, 16994-0, 96539-6 #### [facility] CLIA [id number] [address] [place] [address] [place] Glucose [Mass/Vol] 164 mg/dL High 74-99 [facility] Comment on above: Order Comment: Keegan aguirre Type: BLOOD SPECIMEN Ordering Facility: [facility] Address: [address] [place] [address] Result Comment: The [place] Diabetes Association (ADA) provides guidance for cutoff values for fasting glucose and random glucose. The ADA defines fasting as no caloric intake for at least 8 hours. Fasting plasma glucose results between 100 to 125 mg/dL indicate increased risk for diabetes (prediabetes). Fasting plasma glucose results greater than or equal to 126 mg/dL meet the criteria for diagnosis of diabetes. In the absence of unequivocal hyperglycemia, results should be confirmed by repeat testing. In a patient with classic symptoms of hyperglycemia or hyperglycemic crisis, random plasma glucose results greater than or equal to 200 mg/dL meet the criteria for diagnosis of diabetes. Reference: Standards of Medical Care in Diabetes 2016, [place] Diabetes Association. Diabetes Care. 2016.39(Suppl 1). Performed By: #### 2 4323-8, 2276-4, 67519-5, 51826-6 #### [facility] CLIA [id number] [address] [place] [address] [place] Potassium [Moles/Vol] 4.0 mmol/L Normal 3.7-5.1 [facility] Comment on above: Order Comment: Speci men Type: BLOOD SPECIMEN Ordering Facility: [facility] Address: [address] [place] [address] Performed By: #### 2 4323-8, 2276-4, 00123-3, 21480-1 #### [facility] CLIA [id number] [address] [place] [address] [place] Protein [Mass/Vol] 8.1 g/dL High 6.3-8.0 [facility] Comment on above: Order Comment: Speci men Type: BLOOD SPECIMEN Ordering Facility: [facility] Address: [address] [place] [address] Performed By: #### 2 4323-8, 2276-4, 41058-1, 69006-7 #### [facility] CLIA [id number] [address] [place] [address] [place] Sodium [Moles/Vol] 139 mmol/L Normal 136-144 [facility] Comment on above: Order Comment: Speci men Type: BLOOD SPECIMEN Ordering Facility: [facility] Address: [address] [place] [address] Performed By: #### 2 4323-8, 6-4, 18311-2, 78866-4 #### [facility] CLIA [id number] [address] [place] [address] [place] Urea nitrogen [Mass/Vol] 8 mg/dL Low 9-24 [facility] Comment on above: Order Comment: Speci men Type: BLOOD SPECIMEN Ordering Facility: [facility] Address: [address] [place] [address] Performed By: #### 2 4323-8, 6-4, 80921-4, 87884-2 #### [facility] CLIA [id number] [address] [place] [address] [place] Ferritin SerPl-mCncon 10-17- 2025 Ferritin [Mass/Vol] 607.0 ng/mL High 30.3-565.7 [facility] Comment on above: Order Comment: Speci men Type: BLOOD SPECIMEN Ordering Facility: [facility] Address: [address] [place] [address] Performed By: #### 2 4323-8, 2276-4, 51959-4, 99166-6 #### [facility] CLIA [id number] [address] [place] [address] [place] Iron and Iron binding capaci ty panelon 11-21-2024 Iron [Mass/Vol] 126 ug/dL Normal 41-186 [facility] Comment on above: Order Comment: Speci men Type: BLOOD SPECIMEN Ordering Facility: [facility] Address: [address] [place] [address] Performed By: #### 2 4323-8, 2276-4, 91339-6, 89046-3 #### [facility] CLIA [id number] [address] [place] [address] [place] Iron binding capacity [Mass/Vol] 258 ug/dL Normal 232-386 [facility] Comment on above: Order Comment: Speci men Type: BLOOD SPECIMEN Ordering Facility: [facility] Address: [address] [place] [address] Performed By: #### 2 4323-8, 2276-4, 96252-2, 76889-8 #### [facility] CLIA [id number] [address] [place] [address] [place] Iron/TIBC [Molar ratio] 48.8 % Normal 15.0-57.0 [facility] Comment on above: Order Comment: Speci men Type: BLOOD SPECIMEN Ordering Facility: [facility] Address: [address] [place] [address] Performed By: #### 2 4323-8, 2276-4, 19018-2, 33616-7 #### [facility] CLIA [id number] [address] [place] [address] [place] Lipid 1996 panelon 10-17-202 5 Cholesterol [Mass/Vol] 191 mg/dL Normal <200 [facility] Comment on above: Order Comment: Keegan aguirre Type: BLOOD SPECIMEN Ordering Facility: [facility] Address: [address] [place] [address] Result Comment: <200 mg/dL, Desirable 200-239 mg/dL, Borderline high >239 mg/dL, High Performed By: #### 2 4323-8, 6-4, 16323-1, 81727-1 #### [facility] CLIA [id number] [address] [place] [address] [place] Cholesterol in HDL [Mass/Vol] 61 mg/dL Normal >39 [facility] Comment on above: Order Comment: Keegan aguirre Type: BLOOD SPECIMEN Ordering Facility: [facility] Address: [address] [place] [address] Result Comment: 40-5 9 mg/dL, Acceptable >59 mg/dL, High: Negative risk factor for coronary heart disease <40 mg/dL, Low: Positive risk factor for coronary heart disease Performed By: #### 2 4323-8, 6-4, 15944-7, 93561-1 #### [facility] CLIA [id number] [address] [place] [address] [place] Cholesterol in LDL [Mass/Vol] 121 mg/dL High <100 [facility] Comment on above: Order Comment: Keegan carla Type: BLOOD SPECIMEN Ordering Facility: [facility] Address: [address] [place] [address] Result Comment: <100 mg/dL, Optimal 100-129 mg/dL, Near optimal/above optimal 130-159 mg/dL, Borderline high 160-189 mg/dL, High >189 mg/dL, Very high Secondary prevention optimal LDL Cholesterol levels are recommended to be <70 mg/dL LDL cholesterol is calculated using the Denis-NIH equation. Performed By: #### 2 4323-8, 6-4, 32447-9, 65881-7 #### [facility] CLIA [id number] [address] [place] [address] [place] Cholesterol in LDL/Cholesterol in HDL [Mass ratio] 1.98 {ratio} Normal <2.54 [facility] Comment on above: Order Comment: Keegan aguirre Type: BLOOD SPECIMEN Ordering Facility: [facility] Address: [address] [place] [address] Result Comment: Elver farrar: 1. National Cholesterol Education Program ATP III Guideline At-A-Glance Quick Desk Reference: National Heart, Lung, and Blood [place]. National Institutes of Health. 2001: NIH Publication No. 01-3305. 2. An International Atherosclerosis Society position paper: global recommendations for the management of dyslipidemia: executive summary, Atherosclerosis. 2014: 232(2):410-413. Performed By: #### 2 4323-8, 6-4, 04766-9, 21417-6 #### [facility] CLIA [id number] [address] [place] [address] [place] Cholesterol in VLDL [Mass/Vol] 8 mg/dL Normal <30 [facility] Comment on above: Order Comment: Keegan aguirre Type: BLOOD SPECIMEN Ordering Facility: [facility] Address: [address] [place] [address] Performed By: #### 2 4323-8, 6-4, 13841-3, 17476-9 #### [facility] CLIA [id number] [address] [place] [address] [place] Cholesterol non HDL [Mass/Vol] 130 mg/dL High <130 [facility] Comment on above: Order Comment: Keegan aguirre Type: BLOOD SPECIMEN Ordering Facility: [facility] Address: [address] [place] [address] Result Comment: <130 mg/dL, Optimal 130-159 mg/dL, Near optimal/above optimal 160-189 mg/dL, Borderline high 190-219 mg/dL, High >219 mg/dL, Very high Secondary prevention optimal non HDL Cholesterol levels are recommended to be <100 mg/dL Performed By: #### 2 4323-8, 6-4, 43926-9, 94734-6 #### [facility] CLIA [id number] [address] [place] [address] [place] Cholesterol.total /Cholesterol in HDL [Mass ratio] 3.13 {ratio} Normal <5.10 [facility] Comment on above: Order Comment: Speci men Type: BLOOD SPECIMEN Ordering Facility: [facility] Address: [address] [place] [address] Performed By: #### 2 4323-8, 2276-4, 61065-2, 41832-5 #### [facility] CLIA [id number] [address] [place] [address] STATES OF [facility] FASTING TIME 14 hrs Normal [facility] Comment on above: Order Comment: Speci men Type: BLOOD SPECIMEN Ordering Facility: [facility] Address: [address] [place] [address] Performed By: #### 2 4323-8, 6-4, 07235-1, 01293-9 #### [facility] CLIA [id number] [address] [place] [address] [place] Triglyceride [Mass/Vol] 46 mg/dL Normal <150 [facility] Comment on above: Order Comment: Speci men Type: BLOOD SPECIMEN Ordering Facility: [facility] Address: [address] [place] [address] Result Comment: <150 mg/dL, Normal 150-199 mg/dL, Borderline high 200-499 mg/dL, High >499 mg/dL, Very high Performed By: #### 2 4323-8, 2276-4, 56130-8, 04468-1 #### [facility] CLIA [id number] [address] [place] [address] [place] PSA/PROSTATE SPECIFIC ANTIGE N SCREENINGon 11-21-2024 Prostate specific Ag [Mass/Vol] 0.36 ng/mL Normal <2.60 [facility] Comment on above: Order Comment: Speci men Type: BLOOD SPECIMEN Ordering Facility: [facility] Address: [address] [place] [address] Result Comment: Tota l PSA test methodology used is the Electrochemiluminescence Immunoassay by [employer]. Total PSA values by differing methodologies cannot be interchanged. Performed By: #### P SAS1 #### [facility] CLIA [id number] [address] [place] [address] [place] CNCOon 02-13-2024 CNCO Letter Text Normal [facility] CNOVon 02-13-2024 CNOV Office Visit ([facility] ) PHILOMENA OLMSTEAD ([id number]) 1965 M Date Time Provider Department 02/13/24 2:00 PM [facility] During your visit today, we recorded the following information about you: Pulse Respiration Blood pressure Weight 68/minute 12/minute 150/82 131.3 kg Greta Woodson APRN.[employer] 02/13/2024 5:13 PM Signed Chief Complaint Patient presents with: rash on rt side uper chest no pain concered for shingles HPI Philomena Olmstead is a 59 year old male who presents here today for Above Complaints.. Rash-right upper chest, started yesterday, doesn't itch or burn. No blister or drainage. Wondering if it could be from where he was laying at bedtime with his necklace. Concerned because his brother recently was dx with shingles and waited too long to be seen and couldn't be treated-he is concerned that he doesn't want to wait too long that he couldn't be treated. Past medical history, appointments, medications, allergies reviewed. Previous Medical History PAST MEDICAL HISTORY Diagnosis Date Esophagitis, unspecified Essential hypertension, benign Family history of malignant neoplasm of gastrointestinal tract family history of colon cancer Genital herpes Hemorrhage of rectum and anus Hypertrophy of breast Obesity, unspecified Other and unspecified alcohol dependence, unspecified drinking behavior ETOH depend. syn. Other and unspecified hyperlipidemia Type II or unspecified type diabetes mellitus without mention of complication, not stated as uncontrolled Unspecified gastritis and gastroduodenitis without mention of hemorrhage Previous Surgical History PAST SURGICAL HISTORY Procedure Laterality Date COLONOSCOPY 2006 incomplete due to tortuosity of colon COLONOSCOPY FLX DX W/COLLJ SPEC WHEN PFRMD 11/20/2018 Colonoscopy EGD TRANSORAL BIOPSY SINGLE/MULTIPLE 07/20/09 PAST SURGICAL HISTORY OF LLE cyst Family History FAMILY HISTORY Problem Relation Age of Onset Diabetes Mother Diabetes Father Colon Cancer Father Patient Allergies ALLERGIES Allergen Reactions Hazelnut Swelling Facial swelling, hives Pecan Nut Swelling Hazel Green Swelling Current Medications Current Outpatient Medications on File Prior to Visit Medication Sig rosuvastatin (CRESTOR) 10 mg tablet Take 1 tablet by mouth daily at bedtime. amLODIPine (NORVASC) 10 mg tablet Take 1 tablet by mouth once daily. Vitamin E, dl, acetate, (VITAMIN E) 400 unit capsule Take 1 capsule by mouth two times a day. Cinnamon Bark 500 mg cap Take 2 capsules by mouth two times a day. cyanocobalamin (VITAMIN B-12) 1,000 mcg tab Take 1 tablet by mouth once daily. lisinopril (ZESTRIL) 20 mg tablet Take 1 tablet by mouth once daily. Zinc 50 mg tab Take 2 tablets by mouth once daily. ascorbic acid, vitamin C, (VITAMIN C) 500 mg tablet Take 1 tablet by mouth once daily. magnesium oxide 400 mg magnesium cap Take 1 capsule by mouth once daily. B Complex-Folic Acid (B COMPLEX 1, WITH FOLIC ACID,) 0.4 mg tab Take 1 tablet by mouth once daily. Cholecalciferol, Vitamin D3, 25 mcg (1,000 unit) cap Take 1 capsule by mouth once daily. OMEGA 3-VITAMIN E-FISH OIL 700 MG-15 UNIT-1,100 MG CAP Take one(1) tablet daily. turmeric 400 mg cap Take 1 capsule by mouth once daily. No current facility-administered medications on file prior to visit. Social History Social History Tobacco Use Smoking status: Former Current packs/day: 0.00 Types: Cigarettes Quit date: 12/06/1992 Years since quittin.2 Smokeless tobacco: Never Vaping Use Vaping status: Never Used Substance Use Topics Alcohol use: No Drug use: No Review of Symptoms REVIEW OF SYSTEMS See HPI, otherwise negative EXAM: BP 150/82 (BP Site: Left Arm, BP Position: Sitting, BP Cuff Size: Large Adult) Pulse 68 Resp 12 Wt 131.3 kg (289 lb 6.4 oz) SpO2 99% BMI 38.18 kg/m? General Appearance: Well appearing, alert, in no acute distress, well-hydrated, well nourished.. Skin: approximate quarter-sized flat purplish area to right upper chest, no drainage or blistering, no flaking. Psychiatric: pleasant, cooperative. Health Maintenance List BP Controlled (<130/80) Never done Hepatitis B Vaccine(1 of 3 - 19+ 3-dose series) Never done Shingrix Vaccine(1 of 2) Never done Influenza Vaccine(1) due on 10/07/2023 Colorectal Cancer Screening due on 11/21/2023 Covid-19 Vaccine( - 2023- season) due on 02/12/2025 Pneumococcal Vaccine: 50+(1 of 1 - PCV) due on 02/12/2025 Annual PCP Team Chronic Disease Visit due on 06/14/2024 Depression Screening due on 06/14/2024 DTaP,Tdap,Td Vaccine(3 - Td or Tdap) due on 03/08/2026 Diabetes Screening due on 06/18/2026 Lipid Screening due on 06/18/2028 Prostate Cancer Screening Discussion due on 06/18/2028 Hepatitis C Screening Completed HIV Screening Completed Data reviewed Previous fide (more content not included)... Normal [facility] CBC panel Auto (Bld)on 06-12 Erythrocyte distribution width (RBC) [Ratio] 12.5 % 11.5 - 15.0 % [facility] Hematocrit (Bld) [Volume fraction] 43.9 % 39.0 - 51.0 % [facility] Hemoglobin (Bld) [Mass/Vol] 14.4 g/dL 13.0 - 17.0 g/dL [facility] MCH (RBC) [Entitic mass] 29.6 pg 26.0 - 34.0 pg [facility] MCHC (RBC) [Mass/Vol] 32.8 g/dL 30.5 - 36.0 g/dL [facility] MCV (RBC) [Entitic vol] 90.3 fL 80.0 - 100.0 fL [facility] Nucleated RBC (Bld) [#/Vol] <0.01 k/uL [facility] Platelet mean volume (Bld) [Entitic vol] 10.8 fL 9.0 - 12.7 fL [facility] Platelets (Bld) [#/Vol] 225 10*3/uL 150 - 400 k/uL [facility] RBC (Bld) [#/Vol] 4.86 10*6/uL 4.20 - 6.0 0 m/uL [facility] WBC (Bld) [#/Vol] 4.00 10*3/uL 3.70 - 11. 00 k/uL [facility] Vital Signs Date Time Vital Sign Value Performing Clinician [place] 02-13-2024 14:32-0500 Body mass index (BMI) [Ratio] 38.18 kg/m2 Greta Chintan CROCODILE FARMER.[employer] MECHANICS INSTRUCTOR Work Phone: [facility] 02-13-2024 14:32-0500 Body weight 131.27 kg Greta Chintan CROCODILE FARMER.AUT[employer] MECHANICS INSTRUCTOR Work Phone: [facility] 02-13-2024 14:32-0500 Diastolic blood pressure 82 mm[Hg] Greta Chintan CROCODILE FARMER.AUT[employer] MECHANICS INSTRUCTOR Work Phone: [facility] 02-13-2024 14:32-0500 Heart rate 68 /min Greta Chintan CROCODILE FARMER.AUT[employer] MECHANICS INSTRUCTOR Work Phone: [facility] 02-13-2024 14:32-0500 Respiratory rate 12 /min Greta Chintan CROCODILE FARMER.AUT[employer] MECHANICS INSTRUCTOR Work Phone: [facility] 02-13-2024 14:32-0500 SaO2% (BldA) [Mass fraction] 99 % Greta Chintan CROCODILE FARMER.AUT[employer] MECHANICS INSTRUCTOR Work Phone: [facility] 02-13-2024 14:32-0500 Systolic blood pressure 150 mm[Hg] Greta Chintan CROCODILE FARMER.AUT[employer] MECHANICS INSTRUCTOR Work Phone: [facility] 06-15-2023 13:32-0400 Body height 185.4 cm Anibal Peraza MD Work Phone: [facility] 06-15-2023 13:32-0400 Body mass index (BMI) [Ratio] 37.89 kg/m2 Anibal Peraza MD Work Phone: [facility] 06-15-2023 13:32-0400 Body weight 130.27 kg Anibal Peraza MD Work Phone: [facility] 06-15-2023 13:32-0400 Diastolic blood pressure 80 mm[Hg] Anibal Peraza MD Work Phone: [facility] 06-15-2023 13:32-0400 Heart rate 74 /min Anibal Peraza MD Work Phone: [facility] 06-15-2023 13:32-0400 Respiratory rate 16 /min Anibal Peraza MD Work Phone: [facility] 06-15-2023 13:32-0400 Systolic blood pressure 130 mm[Hg] Anibal Peraza MD Work Phone: [facility] 06-12-2022 11:15-0400 Body height 184 cm Greta Chintan CROCODILE FARMER.AUT[employer] MECHANICS INSTRUCTOR Work Phone: [facility] 06-12-2022 11:15-0400 Body weight 130.18 kg Greta Chintan CROCODILE FARMER.AUT[employer] MECHANICS INSTRUCTOR Work Phone: [facility] 06-12-2022 11:15-0400 Diastolic blood pressure 90 mm[Hg] Greta Chintan CROCODILE FARMER.AUT[employer] MECHANICS INSTRUCTOR Work Phone: [facility] 06-12-2022 11:15-0400 Heart rate 76 /min Greta Chintan CROCODILE FARMER.AUT[employer] MECHANICS INSTRUCTOR Work Phone: [facility] 06-12-2022 11:15-0400 Respiratory rate 16 /min Greta Chintan CROCODILE FARMER.AUT[employer] MECHANICS INSTRUCTOR Work Phone: [facility] 06-12-2022 11:15-0400 SaO2% (BldA) [Mass fraction] 99 % Greta Chintan CROCODILE FARMER.AUT[employer] MECHANICS INSTRUCTOR Work Phone: [facility] 06-12-2022 11:15-0400 Systolic blood pressure 136 mm[Hg] Greta Chintan CROCODILE FARMER.AUT[employer] MECHANICS INSTRUCTOR Work Phone: [facility] 08-18-2021 11:57-0400 Body weight 131.81 kg Anibal Peraza MD Work Phone: [facility] 08-18-2021 11:57-0400 Diastolic blood pressure 82 mm[Hg] Anibal Peraza MD Work Phone: [facility] 08-18-2021 11:57-0400 Heart rate 72 /min Anibal Peraza MD Work Phone: [facility] 08-18-2021 11:57-0400 Respiratory rate 16 /min Anibal Peraza MD Work Phone: [facility] 08-18-2021 11:57-0400 Systolic blood pressure 124 mm[Hg] Anibal Peraza MD Work Phone: [facility] Encounters Encounter Date Encounter Type Care Provider Facility Start: 11-24-2024 End: 11-24-2024 ambulatory [facility] Facility:[facility] Start: 11-21-2024 Encounter for genera l [facility]: 11-21-2024 End: 11-21-2024 ambulatory [facility] Facility:[facility] Start: 07-01-2024 End: 07-01-2024 Refill Anibal Peraza MD Work Phone: [facility] Comment on above: Refill Request Start: 06-16-2024 End: 06-16-2024 Refill Anibal Peraza MD Work Phone: [facility] Comment on above: Refill Request Start: 06-15-2024 End: 06-15-2024 Nurse Triage Shobha Foss RN NURSE [employer] Comment on above: Refill Request Start: 05-27-2024 End: 05-27-2024 Refill Anibal Peraza MD Work Phone: [facility] Comment on above: Refill Request Start: 02-13-2024 End: 02-13-2024 ambulatory [facility] Facility:[facility] Start: 02-13-2024 End: 02-13-2024 Office outpatient visit 15 minutes Greta Woodson CROCODILE FARMERFIORDALIZA Work Phone: [facility] Comment on above: Rash (Primary Dx) Start: 12-24-2023 End: 12-24-2023 Patient encounter status Anibal Peraza MD Work Phone: [facility] Start: 12-24-2023 End: 12-24-2023 Refill Anibal Peraza MD Work Phone: [facility] [place] Comment on above: Refill Request Start: 06-28-2023 Refill Anibal reyes MD Work Phone: [facility] [place] Comment on above: Refill Request Start: 06-28-2023 Refill Greta davila CROCODILE FARMER.[employer]CH[employer]ICS INSTRUCTOR Work Phone: [facility] [place] Comment on above: Refill Request Start: 06-21-2023 Telephone encounter Anibal bass MD Work Phone: [facility] [place] Comment on above: Results Start: 06-19-2023 Refill Greta davila CROCODILE FARMER.AUT[employer] MECHANICS INSTRUCTOR Work Phone: [facility] [place] Comment on above: Refill Request Start: 06-15-2023 End: 06-15-2023 Patient encounter procedure Anibal Peraza MD Work Phone: [facility] [place] Comment on above: Wellness examination (Primary Dx); Essential hypertension, benign; Mixed hyperlipidemia; Impaired fasting glucose; Screening PSA (prostate specific antigen); Vitamin D deficiency Start: 06-15-2023 End: 06-15-2023 Patient encounter status Anibal Peraza MD Work Phone: [facility] Start: 06-01-2023 Refill Anibal reyes MD Work Phone: [facility] [place] Comment on above: Refill Request Start: 06-12-2022 End: 06-12-2022 Patient encounter procedure Greta Woodson CROCODILE FARMER.AUT[employer] MECHANICS INSTRUCTOR Work Phone: [facility] [place] Comment on above: Wellness examination (Primary Dx); Essential hypertension, benign; Impaired fasting glucose; Mixed hyperlipidemia; Hypokalemia; Screening PSA (prostate specific antigen); Encounter for vitamin deficiency screening Start: 06-12-2022 End: 06-12-2022 Patient encounter status Greta Woodson CROCODILE FARMER.AUT[employer] MECHANICS INSTRUCTOR Work Phone: [facility] Start: 06-06-2022 Refill Aleksey PAREDES RN.AUT[employer] MECH[employer]ICS INSTRUCTOR Work Phone: [facility] Comment on above: Refill Request Start: 06-06-2022 Refill Aleksey PAREDES RN.AUTO MECHANICS INSTRUCTOR Work Phone: [facility] Comment on above: Refill Request Start: 12-26-2021 Refill Aleksey PAREDES RN.AUT[employer] MECHANICS INSTRUCTOR Work Phone: [facility] Comment on above: Refill Request Start: 08-18-2021 End: 08-18-2021 Patient encounter procedure Anibal Peraza MD Work Phone: [facility] Comment on above: Type 2 diabetes jillian itus without complication, without long- term current use of insulin (HCC) (Primary Dx); Essential hypertension, benign; Mixed hyperlipidemia; Hypokalemia; Screening PSA (prostate specific antigen); Wellness examination; Strain of left biceps, initial encounter Start: 08-18-2021 End: 08-18-2021 Patient encounter status Anibal Peraza MD Work Phone: [facility] Start: 06-06-2021 Refill Aleksey PAREDES RN.AUT[employer] MECHANICS INSTRUCTOR Work Phone: [facility] Comment on above: Refill Request Start: 12-03-2019 End: 12-03-2019 ambulatory Anibal Peraza Facility:[facility] Procedures Date Procedure Procedure Detail Performing Clinician Start: 06-19-2023 Lipid 1996 panel - S hermelinda or Plasma Anibal Peraza MD Work Phone: Start: 06-15-2023 Adult depression scr eening assessment Anibal Peraza MD Work Phone: Start: 06-12-2022 Lipid 1996 panel - S hermelinda or Plasma Anibal Peraza MD Work Phone: Start: 11-26-2020 Adult depression scr eening assessment Aleksey Freed CROCODILE FARMER.AUT[employer] MECHANICS INSTRUCTOR Work Phone: Start: 11-20-2018 Colonoscopy Aleksey winston APRN.AUT[employer] MECHANICS INSTRUCTOR Work Phone: Plan of Treatment Date Care Activity Detail Author Start: 06-18-2028 Lipid panel Lipid Screening [facility] Start: 06-18-2028 Prostate specific antigen measurement Prostate Cancer Screening Discussion [facility] Start: 06-13-2027 Lipid panel Lipid Screening [facility] Start: 06-13-2027 Prostate specific antigen measurement Prostate Cancer Screening Discussion [facility] Start: 06-18-2026 Diabetes Screening Diabetes Screenin g [facility] Start: 03-08-2026 Urine microalbumin profile [facility] Start: 06-12-2025 Diabetes Screening Diabetes Screenin g [facility] Start: 02-13-2025 PROSTATE CANCER SCREENING DISCUSSION PROSTATE CANCER SCREENING DISCUSSION [facility] Start: 02-12-2025 Annual PCP Team Aerial Photogrammetrist ángel Disease Visit Annual PCP Team Chronic Disease Visit [facility] Start: 02-12-2025 Covid-19 Vaccine ( season) Covid-19 Vaccine ( season) [facility] Comment on above: Postponed from 10/06 (Declined at this time) Start: 02-12-2025 Pneumococcal Vaccine : 50+ (1 of 1 - PCV) Pneumococcal Vaccine: 50+ (1 of 1 - PCV) [facility] Comment on above: Postponed from 01/17 (Declined at this time) Start: 10-06-2024 Influenza vaccination Influenz a Vaccine (Season Ended) [facility] Start: 07-07-2024 End: 07-07-2024 Patient encounter procedure 07/07/2024 5:00 PM EDT Office Visit Family [facility] [address] [place] [address] Anibal Peraza MD [address] [place] [id number] Wellness exam [facility] Comment on above: Wellness exam Start: 06-16-2024 End: 06-16-2024 Patient encounter procedure 06/16/2024 5:00 PM EDT Office Visit Family [facility] [address] [place] [id number] Anibal Peraza MD [address] [place] [address] Wellness exam [facility] Comment on above: Wellness exam Start: 06-14-2024 Annual PCP Team Aerial Photogrammetrist ángel Disease Visit Annual PCP Team Chronic Disease Visit [facility] Start: 06-14-2024 Covid-19 Vaccine () Covid-19 Vaccine () [facility] Comment on above: Postponed from 10/06 (Declined at this time) Start: 06-14-2024 Depression Screening Depression Scre ening [facility] Start: 12-24-2023 End: 03-24-2024 25-hydroxyvitamin D3 [Mass/volume] in Serum or Plasma VITAMIN D 25 HYDROXY Lab Routine Vitamin D deficiency Expected: 12/24/2023, Expires: 03/24/2024 [facility] Work Phone: Comment on above: Expected: 12/24/2023 , Expires: 03/24/2024 Start: 12-24-2023 End: 03-24-2024 CBC W Auto Differential panel - Blood COMPLETE BLOOD COUNT AND DIFFERENTIAL Lab Routine Mixed hyperlipidemia Wellness examination Impaired fasting glucose Expected: 12/24/2023, Expires: 03/24/2024 [facility] Comment on above: Expected: 12/24/2023 , Expires: 03/24/2024 Start: 12-24-2023 End: 03-24-2024 Comprehensive metabolic 2000 panel - Serum or Plasma COMPREHENSIVE METABOLIC PANEL Lab Routine Mixed hyperlipidemia Impaired fasting glucose Expected: 12/24/2023, Expires: 03/24/2024 [facility] Comment on above: Expected: 12/24/2023 , Expires: 03/24/2024 Start: 12-24-2023 End: 03-24-2024 Hemoglobin A1c in Blood HEMOGLOBIN A1C Lab Routine Impaired fasting glucose Expected: 12/24/2023, Expires: 03/24/2024 [facility] Comment on above: Expected: 12/24/2023 , Expires: 03/24/2024 Start: 12-24-2023 End: 03-24-2024 Lipid 1996 panel - Serum or Plasma LIPID PANEL BASIC Lab Routine Mixed hyperlipidemia Expected: 12/24/2023, Expires: 03/24/2024 [facility] Comment on above: Expected: 12/24/2023 , Expires: 03/24/2024 Start: 12-24-2023 End: 03-24-2024 PSA/PROSTATE SPECIFIC ANTIGEN SCREENING PSA/PROSTATE SPECIFIC ANTIGEN SCREENING Lab Routine Screening PSA (prostate specific antigen) Expected: 12/24/2023, Expires: 03/24/2024 [facility] Comment on above: Expected: 12/24/2023 , Expires: 03/24/2024 Start: 12-24-2023 End: 03-24-2024 TSH W/REFLEX FT4 TSH W/REFLEX FT4 Lab Routine Wellness examination Essential hypertension, benign Expected: 12/24/2023, Expires: 03/24/2024 [facility] Comment on above: Expected: 12/24/2023 , Expires: 03/24/2024 Start: 11-21-2023 Colonoscopy COLONOSCOPY [facility] Start: 11-21-2023 COLORECTAL CANCER SCREENING COLORECTAL CANCER SCREENING [facility] Start: 11-21-2023 Screening for malign ant neoplasm of colon [facility] Start: 10-07-2023 Covid-19 Vaccine () Covid-19 Vaccine () [facility] Start: 10-07-2023 Influenza vaccination [facility] Start: 06-15-2023 End: 09-14-2023 25-hydroxyvitamin D3 [Mass/volume] in Serum or Plasma VITAMIN D 25 HYDROXY Lab Routine Vitamin D deficiency Expected: 06/15/2023, Expires: 09/14/2023 [facility] Comment on above: Expected: 06/15/2023 , Expires: 09/14/2023 Start: 06-15-2023 End: 09-14-2023 CBC W Auto Differential panel - Blood COMPLETE BLOOD COUNT AND DIFFERENTIAL Lab Routine Wellness examination Mixed hyperlipidemia Impaired fasting glucose Expected: 06/15/2023 (Approximate), Expires: 09/14/2023 [facility] Comment on above: Expected: 06/15/2023 (Approximate), Expires: 09/14/2023 Start: 06-15-2023 End: 09-14-2023 Comprehensive metabolic 2000 panel - Serum or Plasma COMPREHENSIVE METABOLIC PANEL Lab Routine Mixed hyperlipidemia Impaired fasting glucose Expected: 06/15/2023 (Approximate), Expires: 09/14/2023 [facility] Comment on above: Expected: 06/15/2023 (Approximate), Expires: 09/14/2023 Start: 06-15-2023 End: 09-14-2023 Hemoglobin A1c in Blood HEMOGLOBIN A1C Lab Routine Impaired fasting glucose Expected: 06/15/2023 (Approximate), Expires: 09/14/2023 [facility] Comment on above: Expected: 06/15/2023 (Approximate), Expires: 09/14/2023 Start: 06-15-2023 End: 09-14-2023 Lipid 1996 panel - Serum or Plasma LIPID PANEL BASIC Lab Routine Mixed hyperlipidemia Expected: 06/15/2023 (Approximate), Expires: 09/14/2023 [facility] Work Phone: Comment on above: Expected: 06/15/2023 (Approximate), Expires: 09/14/2023 Start: 06-15-2023 End: 09-14-2023 Microalbumin/Creatinine [Mass Ratio] in Urine ALBUMIN/CREATININE RATIO, URINE Lab Routine Impaired fasting glucose Expected: 06/15/2023 (Approximate), Expires: 09/14/2023 [facility] Comment on above: Expected: 06/15/2023 (Approximate), Expires: 09/14/2023 Start: 06-15-2023 End: 09-14-2023 PSA/PROSTATE SPECIFIC ANTIGEN SCREENING PSA/PROSTATE SPECIFIC ANTIGEN SCREENING Lab Routine Screening PSA (prostate specific antigen) Expected: 06/15/2023 (Approximate), Expires: 09/14/2023 [facility] Comment on above: Expected: 06/15/2023 (Approximate), Expires: 09/14/2023 Start: 06-15-2023 End: 06-15-2023 Patient encounter procedure 06/15/2023 1:20 PM EDT Office Visit [facility] [address] [place] [id number] Anibal Peraza MD [address] [place] [id number] annual wellness [facility] Comment on above: annual wellness Start: 06-13-2023 3 comp foot exam completed DIABETIC FOOT EXAM [facility] Start: 06-13-2023 ANNUAL PCP TEAM BOUNTY HUNTER ÁNGEL DISEASE VISIT ANNUAL PCP TEAM CHRONIC DISEASE VISIT [facility] Start: 06-13-2023 HEPATITIS B (1 of 3 - 3-dose series) HEPATITIS B (1 of 3 - 3-dose series) [facility] Comment on above: Postponed from 01/17 (Declined at this time) Start: 06-13-2023 Hepatitis B Vaccine (1 of 3 - 19+ 3-dose series) Hepatitis B Vaccine (1 of 3 - 19+ 3-dose series) [facility] Comment on above: Postponed from 01/17 (Declined at this time) Start: 06-13-2023 PNEUMOCOCCAL (1 - PCV) PNEUMOCOCCAL (1 - PCV) [facility] Comment on above: Postponed from 01/17 (Declined at this time) Start: 06-13-2023 SHINGRIX VACCINE (1 of 2) SHINGRIX VACCINE (1 of 2) [facility] Comment on above: Postponed from 01/17 (Declined at this time) Start: 04-06-2023 Hepatitis C antibody , confirmatory test DILATED RETINAL EXAM [facility] Start: 02-05-2023 Behavioral Health Screening Behavioral Health Screening [facility] Start: 10-06-2022 Covid-19 Vaccine (2022- season) Covid-19 Vaccine ( season) [facility] Start: 10-06-2022 Influenza vaccination INFLUENZA (Sea son Ended) [facility] Start: 08-18-2022 ANNUAL PCP TEAM BOUNTY HUNTER ÁNGEL DISEASE VISIT ANNUAL PCP TEAM CHRONIC DISEASE VISIT [facility] Start: 08-18-2022 COVID-19 VACCINE (#1) COVID-19 VACCI NE (#1) [facility] Comment on above: Postponed from 07/18 (Declined at this time) Start: 08-16-2022 Hepatitis B surface antibody level LDL CHOLESTEROL [facility] Start: 06-12-2022 End: 08-12-2022 25-hydroxyvitamin D3 [Mass/volume] in Serum or Plasma [facility] Work Phone: Comment on above: Expected: 06/12/2022 , Expires: 08/12/2022 Start: 06-12-2022 End: 08-12-2022 Cobalamin (Vitamin B12) [Mass/volume] in Serum or Plasma [facility] Work Phone: Comment on above: Expected: 06/12/2022 , Expires: 08/12/2022 Start: 06-12-2022 End: 08-12-2022 Comprehensive metabolic 2000 panel - Serum or Plasma [facility] Work Phone: Comment on above: Expected: 06/12/2022 , Expires: 08/12/2022 Start: 06-12-2022 End: 08-12-2022 Hemoglobin A1c in Blood [facility] Work Phone: Comment on above: Expected: 06/12/2022 , Expires: 08/12/2022 Start: 06-12-2022 End: 08-12-2022 Lipid 1996 panel - Serum or Plasma [facility] Work Phone: Comment on above: Expected: 06/12/2022 , Expires: 08/12/2022 Start: 06-12-2022 End: 08-12-2022 Prostate Specific Ag Free [Mass/volume] in Serum or Plasma [facility] Work Phone: Comment on above: Expected: 06/12/2022 , Expires: 08/12/2022 Start: 06-12-2022 End: 08-12-2022 Thyrotropin [Units/volume] in Serum or Plasma [facility] Work Phone: Comment on above: Expected: 06/12/2022 , Expires: 08/12/2022 Start: 02-18-2022 End: 04-20-2022 Comprehensive metabolic 2000 panel - Serum or Plasma COMP METABOLIC PANEL Lab Routine Type 2 diabetes mellitus without complication, without long-term current use of insulin (HCC) Essential hypertension, benign Mixed hyperlipidemia Hypokalemia Expected: 02/18/2022 (Approximate), Expires: 04/20/2022 [facility] Work Phone: Comment on above: Expected: 02/18/2022 (Approximate), Expires: 04/20/2022 Start: 02-18-2022 End: 04-20-2022 Hemoglobin A1c in Blood HGB A1C Lab Routine Type 2 diabetes mellitus without complication, without long-term current use of insulin (HCC) Expected: 02/18/2022 (Approximate), Expires: 04/20/2022 [facility] Work Phone: Comment on above: Expected: 02/18/2022 (Approximate), Expires: 04/20/2022 Start: 02-18-2022 End: 04-20-2022 Lipid 1996 panel - Serum or Plasma LIPID PANEL BASIC Lab Routine Essential hypertension, benign Mixed hyperlipidemia Expected: 02/18/2022 (Approximate), Expires: 04/20/2022 [facility] Work Phone: Comment on above: Expected: 02/18/2022 (Approximate), Expires: 04/20/2022 Start: 02-18-2022 End: 04-20-2022 PSA/PROSTSPECAG SCRN PSA/PROSTSPECAG SCRN Lab Routine Screening PSA (prostate specific antigen) Expected: 02/18/2022 (Approximate), Expires: 04/20/2022 [facility] Work Phone: Comment on above: Expected: 02/18/2022 (Approximate), Expires: 04/20/2022 Start: 02-16-2022 Hemoglobin A1c/Hemoglobin.total in Blood HBA1C [facility] Start: 02-05-2022 [facility]ION [facility]MENT [facility] Start: 01-25-2022 ANNUAL PCP TEAM BOUNTY HUNTER ÁNGEL DISEASE VISIT ANNUAL PCP TEAM CHRONIC DISEASE VISIT [facility] Start: 11-26-2021 3 comp foot exam completed DIABETIC FOOT EXAM [facility] Start: 11-26-2021 Adult depression screening assessment DEPRESSION SCREENING [facility] Start: 11-26-2021 Hepatitis B screening URINE AL BUMIN:CREATININE RATIO [facility] Start: 11-26-2021 Hepatitis B surface antibody level LDL CHOLESTEROL [facility] Start: 10-06-2021 [facility]: 05-27-2021 Hemoglobin A1c/Hemoglobin.total in Blood HBA1C [facility] Start: 02-05-2021 DEPRESSION [facility]MENT [facility] Start: 01-12-2018 Hepatitis C antibody , confirmatory test DILATED RETINAL EXAM [facility] Start: 09-18-2017 FECAL OCCULT BLOOD FECAL OCCULT BLOO D [facility] Start: 09-18-2017 Screening for malign ant neoplasm of colon Fecal Occult Blood [facility] Start: 01-18-2016 SHINGRIX VACCINE (1 of 2) SHINGRIX VACCINE (1 of 2) [facility] Start: 2011 COLOGUARD (FIT-DNA) COLOGUARD (FIT-D NA) [facility] Start: [address] COLONOGRAPHY [facility] Start: 2011 Screening for malign ant neoplasm of colon [facility] Start: 2011 SIGMOIDOSCOPY SIGMOIDOSCOPY [facility] Start: 1985 HEPATITIS B (1 of 3 - Risk 3-dose series) HEPATITIS B (1 of 3 - Risk 3-dose series) [facility] Start: 1985 Hepatitis B Vaccine (1 of 3 - 19+ 3-dose series) Hepatitis B Vaccine (1 of 3 - 19+ 3-dose series) [facility] Start: 01-18-1984 BP CONTROLLED (<130/80) BP CONTROLLE D (<130/80) [facility] Start: 01-18-1972 PNEUMOCOCCAL (1 - PCV) PNEUMOCOCCAL (1 - PCV) [facility] Start: 1971 COVID-19 VACCINE (1) COVID-19 VACCIN E (1) [facility] Start: 1966 HEPATITIS B (1 of 3 - 3-dose series) HEPATITIS B (1 of 3 - 3-dose series) [facility] Immunizations Immunization Date Immunization Notes Care Provider Juan hebert 12-31-2017 influenza virus vaccine, unspecified formulation Anibal Peraza MD Work Phone: [facility] 03-08-2016 tetanus toxoid, redu ruben diphtheria toxoid, and acellular pertussis vaccine, adsorbed Aleksey Freed CROCODILE FARMER.AUT[employer] MECHANICS INSTRUCTOR Work Phone: [facility] 10-07-2005 diphtheria, tetanus toxoids and acellular pertussis vaccine Aleksey Abdiaziz CROCODILE FARMER.AUT[employer] MECHANICS INSTRUCTOR Work Phone: [facility] Payers Date Payer Category Payer Self-pay 2006 [facility] BLUE CARD PPO OOS [id number] 2006 Unknown [employer] BLUE CARD PPO OOS [id number] 2006-Present [phone] [address] [place] [address] PPO [id number] 2006 Unknown [employer] BLUE CARD PPO OOS [id number] 2006-Present [phone] [address] [place] [id number] PPO [id number] 2006 Unknown [id number] Unknown [id number] Social History Date Type Detail Facility Start: 09-27-2012 End: 02-13-2024 Tobacco smoking status NHIS Ex-smoker [facility] End: 12-06-1992 History of tobacco use Current smoker [facility] Start: 09-27-2012 End: 02-13-2024 Tobacco use and exposure Smokeless tobacco non-user [facility] Start: 01-25-2021 End: 02-13-2024 Alcohol intake Current non-drinker of alcohol (finding) [facility] Start: 1965 Sex Assigned At Not on file [facility] Start: 08-08-2021 End: 08-18-2021 Exposure to SARS-CoV-2 (event) Not sure [facility] End: 12-06-1992 History of tobacco use Cigarette Smoker [facility] Start: 06-12-2022 End: 06-15-2023 History of Social function [facility] Start: 06-12-2022 End: 06-15-2023 Tobacco use panel [facility] Adult Depression Scr eening Assessment 0 [facility] Functional Status Date Assessment Result Facility 07-08-2013 Are you deaf, or do you have serious difficulty hearing Yes 07/08/2013 4:53 PM EDT Kimberly Xie LPN Yes [facility] 07-08-2013 Are you blind, or do you have serious difficulty seeing, even when wearing glasses No 07/08/2013 4:53 PM EDT Kimberly Xie LPN No [facility] 07-08-2013 Do you have serious difficulty walking or climbing stairs No 07/08/2013 4:53 PM EDT Kimberly Xie LPN No [facility] 07-08-2013 Do you have difficul ty dressing or bathing No 07/08/2013 4:53 PM EDT Kimberly Xie LPN No [facility] 07-08-2013 Because of a physica l, mental, or emotional condition, do you have difficulty doing errands alone such as visiting a physician's office or shopping No 07/08/2013 4:53 PM EDT Kimberly Xie LPN No [facility] Mental Status Date Assessment Result Facility 07-08-2013 Because of a physica l, mental, or emotional condition, do you have serious difficulty concentrating, remembering, or making decisions No 07/08/2013 4:53 PM EDT Kimberly Xie LPN No [facility] Clinical Notes 05-03-2005 to 11-21-2024 Telephone Encounter - Anibal Peraza MD - 07/01/2024 11:55 AM EDTTelephone Encounter - Anibal Peraza MD - 07/01/2024 11:55 AM EDTPatient InstructionsPatient Instructions Note Date & Type Note Facility 11-21-2024 Note HNO ID: [id number] Author: ALEKSEY FREED APRN.AUTO MECHANICS INSTRUCTOR Service: ? Author Type: Nurse Practitioner Type: Progress Notes Filed: 11/21/2024 09:44 Note Text: Chief Complaint Patient presents with: Yearly Exam HPI Philomena Olmstead is a 59 year old male who presents here today for physical. Philomena is a 59-year-old male with a history of allergies, HTN, and HLD, presenting with facial swelling and hives. Philomena reports facial swelling that began after consuming a new type of cereal, Cinnamon Chex, at 1600 yesterday. He has a known allergy to pecans and walnuts and suspects the cereal may have triggered the reaction. The swelling is localized to the face, does not cause pain, and is similar to previous allergic reactions he has experienced. He denies any dyspnea or other systemic symptoms. Additionally, Philomena reports a recent onset of hives and skin irritation, which he attributes to using a new combination of scented detergents. He describes his skin as very sensitive and notes that he has been experiencing these symptoms for the past week. He has a history of similar reactions and has been using a daily sinus medication for the past 8-9 years to manage chronic rhinorrhea. Philomean also reports chronic dry skin on his legs, which he has had for approximately 15 years. He avoids using lotion as he believes it exacerbates the dryness. In addition to his dermatological concerns, Philomena reports right shoulder pain and weakness that has been ongoing for 7-8 months. 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 He notes that the pain is exacerbated by lifting and has recently started to affect his ability to perform tasks at work. He denies any acute injury to the shoulder. Philomena has a family history of diabetes and is concerned about his own risk, noting a previous HbA1c of 5.7%. He also inquires about his PSA levels and expresses a desire to monitor his overall health, including kidney and liver function. He is currently taking amlodipine 10 mg and lisinopril 20 mg for HTN, as well as Crestor 10 mg for HLD. He denies any issues with these medications. Philomena declines the flu, shingles, and COVID-19 vaccines. He had a colonoscopy in 2019, with benign biopsies, and was advised to have a follow-up in 5 years due to a family history of colon cancer. Past medical history, appointments, medications, allergies reviewed. Previous Medical History PAST MEDICAL HISTORY Diagnosis Date Esophagitis, unspecified Essential hypertension, benign Family history of malignant neoplasm of gastrointestinal tract family history of colon cancer Genital herpes Hemorrhage of rectum and anus Hypertrophy of breast Obesity, unspecified Other and unspecified alcohol dependence, unspecified drinking behavior ETOH depend. syn. Other and unspecified hyperlipidemia Type II or unspecified type diabetes mellitus without mention of complication, not stated as uncontrolled Unspecified gastritis and gastroduodenitis without mention of hemorrhage Previous Surgical History PAST SURGICAL HISTORY Procedure Laterality Date COLONOSCOPY 2006 incomplete due to tortuosity of colon COLONOSCOPY FLX DX W/COLLJ SPEC WHEN PFRMD 11/20/2018 Colonoscopy EGD TRANSORAL BIOPSY SINGLE/MULTIPLE 07/20/09 PAST SURGICAL HISTORY OF LLE cyst Family History FAMILY HISTORY Problem Relation Age of Onset Diabetes Mother Diabetes Father Colon Cancer Father Patient Allergies ALLERGIES Allergen Reactions Hazelnut Swelling Facial swelling, hives Pecan Nut Swelling Hazel Green Swelling Current Medications Current Outpatient Medications on File Prior to Visit Medication Sig amLODIPine (NORVASC) 10 mg tablet Take 1 tablet by mouth once daily. lisinopril (ZESTRIL) 20 mg tablet Take 1 tablet by mouth once daily. turmeric 400 mg cap Take 1 capsule by mouth once daily. rosuvastatin (CRESTOR) 10 mg tablet Take 1 tablet by mouth daily at bedtime. Vitamin E, dl, acetate, (VITAMIN E) 400 unit capsule Take 1 capsule by mouth two times a day. Cinnamon Bark 500 mg cap Take 2 capsules by mouth two times a day. cyanocobalamin (VITAMIN B-12) 1,000 mcg tab Take 1 tablet by mouth once daily. Zinc 50 mg tab Take 2 tablets by mouth once daily. ascorbic acid, vitamin C, (VITAMIN C) 500 mg tablet Take 1 tablet by mouth once daily. magnesium oxide 400 mg magnesium cap Take 1 capsule by mouth once daily. B Complex-Folic Acid (B COMPLEX 1, WITH FOLIC ACID,) 0.4 mg tab Take 1 tablet by mouth once daily. Cholecalciferol, Vitamin D3, 25 mcg (1,000 unit) cap Take 1 capsule by mouth once daily. OMEGA 3-VITAMIN E-FISH OIL 700 MG-15 UNIT-1,100 MG CAP Take one(1) tablet daily. No current facility-administered medications on file prior to visit. Social History SOCIAL HISTORY[1] REVIEW OF SYSTEMS: as above Reviewed relevant PMHx, PSHx, Social Hx, current medications a (more content not included)... [facility] 07-01-2024 Telephone encounter Note OK to refill as ordered Anibal Peraza MD [facility] 07-01-2024 Miscellaneous Notes OK to refill as ordered Anibal Peraza MD Patient calls and states that he does not have any medication left. Patient asking if medication can be sent to pharmacy right away? The patient has been identified by name and date of : Yes Caregiver verified no other encounters exist for this prescription request: Yes Caregiver confirmed with patient/requestor that no other refills are due, in the near future, with this provider at this time: Yes The last office visit in the department: 02/13/2024 Does the patient have a future office visit with this provider/department: Yes 07/07/2024 Requested Prescriptions Pending Prescriptions Disp Refills amLODIPine (NORVASC) 10 mg tablet 90 tablet 3 Sig: Take 1 tablet by mouth once daily. Margie Real RN July 01, 2024 11:05 AM documented in this encounter [facility] 07-01-2024 Telephone encounter Note Patient calls and states that he does not have any medication left. Patient asking if medication can be sent to pharmacy right away? The patient has been identified by name and date of : Yes Caregiver verified no other encounters exist for this prescription request: Yes Caregiver confirmed with patient/requestor that no other refills are due, in the near future, with this provider at this time: Yes The last office visit in the department: 02/13/2024 Does the patient have a future office visit with this provider/department: Yes 07/07/2024 Requested Prescriptions Pending Prescriptions Disp Refills amLODIPine (NORVASC) 10 mg tablet 90 tablet 3 Sig: Take 1 tablet by mouth once daily. Margie Real RN July 01, 2024 11:05 AM [facility] 06-16-2024 Telephone encounter Note The following approved medication requests have been transmitted electronically. Requested Prescriptions Pending Prescriptions Disp Refills valACYclovir (VALTREX) 1 gram tablet 20 tablet 3 Sig: Take 1 tablet by mouth two times a day. As needed for outbreak Aleksey Freed APRN.CNP [facility] 06-16-2024 Miscellaneous Notes The following approved medication requests have been transmitted electronically. Requested Prescriptions Pending Prescriptions Disp Refills valACYclovir (VALTREX) 1 gram tablet 20 tablet 3 Sig: Take 1 tablet by mouth two times a day. As needed for outbreak Aleksey Freed APRN.CNP The patient has been identified by name and date of : Yes Caregiver verified no other encounters exist for this prescription request: Yes Caregiver confirmed with patient/requestor that no other refills are due, in the near future, with this provider at this time: Yes The last office visit in the department: 02/13/2024 Does the patient have a future office visit with this provider/department: 07/07/2024 Requested Prescriptions Pending Prescriptions Disp Refills valACYclovir (VALTREX) 1 gram tablet 20 tablet 3 Sig: Take 1 tablet by mouth two times a day. As needed for outbreak Amy Pichardo RN June 16, 2024 8:44 AM documented in this encounter [facility] 06-16-2024 Telephone encounter Note The patient has been identified by name and date of : Yes Caregiver verified no other encounters exist for this prescription request: Yes Caregiver confirmed with patient/requestor that no other refills are due, in the near future, with this provider at this time: Yes The last office visit in the department: 02/13/2024 Does the patient have a future office visit with this provider/department: 07/07/2024 Requested Prescriptions Pending Prescriptions Disp Refills valACYclovir (VALTREX) 1 gram tablet 20 tablet 3 Sig: Take 1 tablet by mouth two times a day. As needed for outbreak Amy Pichardo RN June 16, 2024 8:44 AM [facility] 06-15-2024 Telephone encounter Note Reason for Call: penis rash, requesting a refill of valcyclovir. Outcome: Patient declined triage, states they just refill the medication and I will call back tomorrow. There is no active prescription for this medication. [facility] 06-15-2024 Miscellaneous Notes Reason for Call: penis rash, requesting a refill of valcyclovir. Outcome: Patient declined triage, states they just refill the medication and I will call back tomorrow. There is no active prescription for this medication. documented in this encounter [facility] 05-27-2024 Telephone encounter Note Patient calls and notified that prescription was sent to pharmacy. Voiced understanding. Margie Real RN [facility] 05-27-2024 Miscellaneous Notes Patient calls and notified that prescription was sent to pharmacy. Voiced understanding. Margie Real RN Called and left a voicemail for the Patient to call back and ask for a nurse to receive the providers message. Just need to let Pt know that his medication was sent to the pharmacy for him. Aparna Tadeo RN Pt reports he only has 2 pills left. Please call and let Pt know when medication has been sent in. The patient has been identified by name and date of : Yes Caregiver verified no other encounters exist for this prescription request: Yes Caregiver confirmed with patient/requestor that no other refills are due, in the near future, with this provider at this time: Yes The last office visit in the department: 02/13/2024 Does the patient have a future office visit with this provider/department: Yes 07/07/2024 Requested Prescriptions Pending Prescriptions Disp Refills lisinopril (ZESTRIL) 20 mg tablet 90 tablet 3 Sig: Take 1 tablet by mouth once daily. Aparna Tadeo RN May 27, 2024 2:59 PM documented in this encounter [facility] 05-27-2024 Telephone encounter Note Called and left a voicemail for the Patient to call back and ask for a nurse to receive the providers message. Just need to let Pt know that his medication was sent to the pharmacy for him. Aparna Tadeo RN [facility] 05-27-2024 Telephone encounter Note Pt reports he only has 2 pills left. Please call and let Pt know when medication has been sent in. The patient has been identified by name and date of : Yes Caregiver verified no other encounters exist for this prescription request: Yes Caregiver confirmed with patient/requestor that no other refills are due, in the near future, with this provider at this time: Yes The last office visit in the department: 02/13/2024 Does the patient have a future office visit with this provider/department: Yes 07/07/2024 Requested Prescriptions Pending Prescriptions Disp Refills lisinopril (ZESTRIL) 20 mg tablet 90 tablet 3 Sig: Take 1 tablet by mouth once daily. Aparna Tadeo RN May 27, 2024 2:59 PM [facility] 02-13-2024 Instructions Greta Woodson APRN.CNP - 02/13/2024 3:12 PM EST Call me if the rash starts to blister or gets painful/burning and we'll treat it as shingles. documented in this encounter [facility] 02-13-2024 Note HNO ID: [id number] Author: GRETA WOODSON APRN.STEWART Service: ? Author Type: Nurse Practitioner Type: Progress Notes Filed: 02/13/2024 17:13 Note Text: Chief Complaint Patient presents with: rash on rt side uper chest no pain concered for shingles HPI Philomena Olmstead is a 59 year old male who presents here today for Above Complaints.. Rash-right upper chest, started yesterday, doesn't itch or burn. No blister or drainage. Wondering if it could be from where he was laying at bedtime with his necklace. Concerned because his brother recently was dx with shingles and waited too long to be seen and couldn't be treated-he is concerned that he doesn't want to wait too long that he couldn't be treated. Past medical history, appointments, medications, allergies reviewed. Previous Medical History PAST MEDICAL HISTORY Diagnosis Date Esophagitis, unspecified Essential hypertension, benign Family history of malignant neoplasm of gastrointestinal tract family history of colon cancer Genital herpes Hemorrhage of rectum and anus Hypertrophy of breast Obesity, unspecified Other and unspecified alcohol dependence, unspecified drinking behavior ETOH depend. syn. Other and unspecified hyperlipidemia Type II or unspecified type diabetes mellitus without mention of complication, not stated as uncontrolled Unspecified gastritis and gastroduodenitis without mention of hemorrhage Previous Surgical History PAST SURGICAL HISTORY Procedure Laterality Date COLONOSCOPY 2006 incomplete due to tortuosity of colon COLONOSCOPY FLX DX W/COLLJ SPEC WHEN PFRMD 11/20/2018 Colonoscopy EGD TRANSORAL BIOPSY SINGLE/MULTIPLE 07/20/09 PAST SURGICAL HISTORY OF LLE cyst Family History FAMILY HISTORY Problem Relation Age of Onset Diabetes Mother Diabetes Father Colon Cancer Father Patient Allergies ALLERGIES Allergen Reactions Hazelnut Swelling Facial swelling, hives Pecan Nut Swelling Hazel Green Swelling Current Medications Current Outpatient Medications on File Prior to Visit Medication Sig rosuvastatin (CRESTOR) 10 mg tablet Take 1 tablet by mouth daily at bedtime. amLODIPine (NORVASC) 10 mg tablet Take 1 tablet by mouth once daily. Vitamin E, dl, acetate, (VITAMIN E) 400 unit capsule Take 1 capsule by mouth two times a day. Cinnamon Bark 500 mg cap Take 2 capsules by mouth two times a day. cyanocobalamin (VITAMIN B-12) 1,000 mcg tab Take 1 tablet by mouth once daily. lisinopril (ZESTRIL) 20 mg tablet Take 1 tablet by mouth once daily. Zinc 50 mg tab Take 2 tablets by mouth once daily. ascorbic acid, vitamin C, (VITAMIN C) 500 mg tablet Take 1 tablet by mouth once daily. magnesium oxide 400 mg magnesium cap Take 1 capsule by mouth once daily. B Complex-Folic Acid (B COMPLEX 1, WITH FOLIC ACID,) 0.4 mg tab Take 1 tablet by mouth once daily. Cholecalciferol, Vitamin D3, 25 mcg (1,000 unit) cap Take 1 capsule by mouth once daily. OMEGA 3-VITAMIN E-FISH OIL 700 MG-15 UNIT-1,100 MG CAP Take one(1) tablet daily. turmeric 400 mg cap Take 1 capsule by mouth once daily. No current facility-administered medications on file prior to visit. Social History Social History Tobacco Use Smoking status: Former Current packs/day: 0.00 Types: Cigarettes Quit date: 12/06/1992 Years since quittin.2 Smokeless tobacco: Never Vaping Use Vaping status: Never Used Substance Use Topics Alcohol use: No Drug use: No Review of Symptoms REVIEW OF SYSTEMS See HPI, otherwise negative EXAM: BP 150/82 (BP Site: Left Arm, BP Position: Sitting, BP Cuff Size: Large Adult) Pulse 68 Resp 12 Wt 131.3 kg (289 lb 6.4 oz) SpO2 99% BMI 38.18 kg/m? General Appearance: Well appearing, alert, in no acute distress, well-hydrated, well nourished.. Skin: approximate quarter-sized flat purplish area to right upper chest, no drainage or blistering, no flaking. Psychiatric: pleasant, cooperative. Health Maintenance List BP Controlled (<130/80) Never done Hepatitis B Vaccine(1 of 3 - 19+ 3-dose series) Never done Shingrix Vaccine(1 of 2) Never done Influenza Vaccine(1) due on 10/07/2023 Colorectal Cancer Screening due on 11/21/2023 Covid-19 Vaccine( - 2023- season) due on 02/12/2025 Pneumococcal Vaccine: 50+(1 of 1 - PCV) due on 02/12/2025 Annual PCP Team Chronic Disease Visit due on 06/14/2024 Depression Screening due on 06/14/2024 DTaP,Tdap,Td Vaccine(3 - Td or Tdap) due on 03/08/2026 Diabetes Screening due on 06/18/2026 Lipid Screening due on 06/18/2028 Prostate Cancer Screening Discussion due on 06/18/2028 Hepatitis C Screening Completed HIV Screening Completed Data reviewed Previous records, office notes ASSESSMENT/PLAN: 1. Rash - ICD9: 782.1, ICD10: R21 Patient concerned for beginning of shingles. At this point seems benign rash per my assessment. Did discuss s/s of shingles rash including pain, shooting or burning pain, blistering. (more content not included)... [facility] 02-13-2024 History of Presen t illness Narrative Chief Complaint Patient presents with: rash on rt side uper chest no pain concered for shingles HPI Philomena Olmstead is a 59 year old male who presents here today for Above Complaints.. Rash-right upper chest, started yesterday, doesn't itch or burn. No blister or drainage. Wondering if it could be from where he was laying at bedtime with his necklace. Concerned because his brother recently was dx with shingles and waited too long to be seen and couldn't be treated-he is concerned that he doesn't want to wait too long that he couldn't be treated. Past medical history, appointments, medications, allergies reviewed. Previous Medical History PAST MEDICAL HISTORY Diagnosis Date Esophagitis, unspecified Essential hypertension, benign Family history of malignant neoplasm of gastrointestinal tract family history of colon cancer Genital herpes Hemorrhage of rectum and anus Hypertrophy of breast Obesity, unspecified Other and unspecified alcohol dependence, unspecified drinking behavior ETOH depend. syn. Other and unspecified hyperlipidemia Type II or unspecified type diabetes mellitus without mention of complication, not stated as uncontrolled Unspecified gastritis and gastroduodenitis without mention of hemorrhage Previous Surgical History PAST SURGICAL HISTORY Procedure Laterality Date COLONOSCOPY 2006 incomplete due to tortuosity of colon COLONOSCOPY FLX DX W/COLLJ SPEC WHEN PFRMD 11/20/2018 Colonoscopy EGD TRANSORAL BIOPSY SINGLE/MULTIPLE 07/20/09 PAST SURGICAL HISTORY OF LLE cyst Family History FAMILY HISTORY Problem Relation Age of Onset Diabetes Mother Diabetes Father Colon Cancer Father Patient Allergies ALLERGIES Allergen Reactions Hazelnut Swelling Facial swelling, hives Pecan Nut Swelling Hazel Green Swelling Current Medications Current Outpatient Medications on File Prior to Visit Medication Sig rosuvastatin (CRESTOR) 10 mg tablet Take 1 tablet by mouth daily at bedtime. amLODIPine (NORVASC) 10 mg tablet Take 1 tablet by mouth once daily. Vitamin E, dl, acetate, (VITAMIN E) 400 unit capsule Take 1 capsule by mouth two times a day. Cinnamon Bark 500 mg cap Take 2 capsules by mouth two times a day. cyanocobalamin (VITAMIN B-12) 1,000 mcg tab Take 1 tablet by mouth once daily. lisinopril (ZESTRIL) 20 mg tablet Take 1 tablet by mouth once daily. Zinc 50 mg tab Take 2 tablets by mouth once daily. ascorbic acid, vitamin C, (VITAMIN C) 500 mg tablet Take 1 tablet by mouth once daily. magnesium oxide 400 mg magnesium cap Take 1 capsule by mouth once daily. B Complex-Folic Acid (B COMPLEX 1, WITH FOLIC ACID,) 0.4 mg tab Take 1 tablet by mouth once daily. Cholecalciferol, Vitamin D3, 25 mcg (1,000 unit) cap Take 1 capsule by mouth once daily. OMEGA 3-VITAMIN E-FISH OIL 700 MG-15 UNIT-1,100 MG CAP Take one(1) tablet daily. turmeric 400 mg cap Take 1 capsule by mouth once daily. No current facility-administered medications on file prior to visit. Social History Social History Tobacco Use Smoking status: Former Current packs/day: 0.00 Types: Cigarettes Quit date: 12/06/1992 Years since quittin.2 Smokeless tobacco: Never Vaping Use Vaping status: Never Used Substance Use Topics Alcohol use: No Drug use: No Review of Symptoms REVIEW OF SYSTEMS See HPI, otherwise negative EXAM: BP 150/82 (BP Site: Left Arm, BP Position: Sitting, BP Cuff Size: Large Adult) Pulse 68 Resp 12 Wt 131.3 kg (289 lb 6.4 oz) SpO2 99% BMI 38.18 kg/m General Appearance: Well appearing, alert, in no acute distress, well-hydrated, well nourished.. Skin: approximate quarter-sized flat purplish area to right upper chest, no drainage or blistering, no flaking. Psychiatric: pleasant, cooperative. Health Maintenance List BP Controlled (<130/80) Never done Hepatitis B Vaccine(1 of 3 - 19+ 3-dose series) Never done Shingrix Vaccine(1 of 2) Never done Influenza Vaccine(1) due on 10/07/2023 Colorectal Cancer Screening due on 11/21/2023 Covid-19 Vaccine( - season) due on 02/12/2025 Pneumococcal Vaccine: 50+(1 of 1 - PCV) due on 02/12/2025 Annual PCP Team Chronic Disease Visit due on 06/14/2024 Depression Screening due on 06/14/2024 DTaP,Tdap,Td Vaccine(3 - Td or Tdap) due on 03/08/2026 Diabetes Screening due on 06/18/2026 Lipid Screening due on 06/18/2028 Prostate Cancer Screening Discussion due on 06/18/2028 Hepatitis C Screening Completed HIV Screening Completed Data reviewed Previous records, office notes ASSESSMENT/PLAN: 1. Rash - ICD9: 782.1, ICD10: R21 Patient concerned for beginning of shingles. At this point seems benign rash per my assessment. Did discuss s/s of shingles rash including pain, shooting or burning pain, blistering. He will notify the office if these sx do appear and will likely tx him with valacyclovir course at that time. Greta Woodson APRN.STEWART documented in this encounter [facility] 12-24-2023 Telephone encounter Note OK to refill as ordered Labs ordered Anibal Peraza MD [facility] 12-24-2023 Miscellaneous Notes OK to refill as ordered Labs ordered Anibal Peraza MD Pt scheduled for his physical wellness exam 06-16-24. Please put in blood work for hi today next year before his wellness exam. The patient has been identified by name and date of : Yes Caregiver verified no other encounters exist for this prescription request: Yes Caregiver confirmed with patient/requestor that no other refills are due, in the near future, with this provider at this time: Yes The last office visit in the department: 06/15/2023 Does the patient have a future office visit with this provider/department: Yes 06/16/2024 Requested Prescriptions Pending Prescriptions Disp Refills rosuvastatin (CRESTOR) 10 mg tablet 30 tablet 11 Sig: Take 1 tablet by mouth daily at bedtime. Princess Gaspar LPN December 24, 2023 12:09 PM documented in this encounter [facility] 12-24-2023 Telephone encounter Note Pt scheduled for his physical wellness exam 06-16-24. Please put in blood work for hi today next year before his wellness exam. The patient has been identified by name and date of : Yes Caregiver verified no other encounters exist for this prescription request: Yes Caregiver confirmed with patient/requestor that no other refills are due, in the near future, with this provider at this time: Yes The last office visit in the department: 06/15/2023 Does the patient have a future office visit with this provider/department: Yes 06/16/2024 Requested Prescriptions Pending Prescriptions Disp Refills rosuvastatin (CRESTOR) 10 mg tablet 30 tablet 11 Sig: Take 1 tablet by mouth daily at bedtime. Princess Gaspar LPN December 24, 2023 12:09 PM [facility] 06-28-2023 Telephone encounter Note OK to refill as ordered Anibal Peraza MD [facility] 06-28-2023 Miscellaneous Notes OK to refill as ordered Anibal Peraza MD Patient has been identified by name and date of : Yes, Provider Date Time Patient phones for refill(s): Requested Prescriptions Pending Prescriptions Disp Refills amLODIPine (NORVASC) 10 mg tablet 90 tablet 3 Sig: Take 1 tablet by mouth once daily. Date of last office visit in primary care: 06/15/2023 Date of next office visit in primary care: Visit date not found Patient says he has only one pill left. Please advise. Thank you. Demetrice Espino RN. documented in this encounter [facility] 06-28-2023 Telephone encounter Note Patient has been identified by name and date of : Yes, Provider Date Time Patient phones for refill(s): Requested Prescriptions Pending Prescriptions Disp Refills amLODIPine (NORVASC) 10 mg tablet 90 tablet 3 Sig: Take 1 tablet by mouth once daily. Date of last office visit in primary care: 06/15/2023 Date of next office visit in primary care: Visit date not found Patient says he has only one pill left. Please advise. Thank you. Demetrice Espino RN. [facility] 06-21-2023 Telephone encounter Note Pt called and is notified of providers results and instructions. Pt voices understanding. Aparna Tadeo RN [facility] 06-21-2023 Miscellaneous Notes Pt called and is notified of providers results and instructions. Pt voices understanding. Aparna Tadeo, RN Please notify patient that his lab results all look good. A1c and glucose are just barely above normal at 5.7 and 128. Everything else is normal. Follow up in 1 year as planned Anibal Peraza MD documented in this encounter [facility] 06-21-2023 Telephone encounter Note Please notify patient that his lab results all look good. A1c and glucose are just barely above normal at 5.7 and 128. Everything else is normal. Follow up in 1 year as planned Anibal Peraza MD [facility] 06-15-2023 History of Presen t illness Narrative Chief Complaint Patient presents with: Physical HPI Philomena Olmstead is a 58 year old male who presents here today for physical. Last appt was June 2022 for wellness exam. Next month he will be at [employer] for 21 years. Works in the [email or web address] dept. He states he is working 12 hour shifts 6 days a week. Picking up a lot of OT hours. Sundays he doesn't work because he is committed to his [employer]. Had 5 kids, 3 girls (1 that from drugs) and 2 sons. No bowel, gi, or urinary issues. DM: blood sugars have been controlled, no longer on any diabetes medications. Working on diet and exercise to control the sugars. No hypoglycemic issues or neuropathy issues. Checking BS daily with FBS running 120-130, highest ready he has had is 140. No issues with BS going too low. He does a 12-15 hour fast, does not eat after 6 pm. Has been taking Cinnamon supplements for the past year which he feels has helped with his diabetes. Has burning off and on to the feet, happens through the day. He thinks that it is from being on his feet all day and due to his socks. He has a size 13 shoe but socks only come as big as size 12. HTN: Taking Lisinopril 20 mg daily and Norvasc 10 mg daily. Denies any chest pains, dizziness, or SOB. Lipid: Taking Crestor 10 mg daily, tolerating well. Tries to watch diet and and exercise. Is on his feet a lot at work. Past medical history, appointments, medications, allergies reviewed. Previous Medical History PAST MEDICAL HISTORY Diagnosis Date Esophagitis, unspecified Essential hypertension, benign Family history of malignant neoplasm of gastrointestinal tract family history of colon cancer Genital herpes Hemorrhage of rectum and anus Hypertrophy of breast Obesity, unspecified Other and unspecified alcohol dependence, unspecified drinking behavior ETOH depend. syn. Other and unspecified hyperlipidemia Type II or unspecified type diabetes mellitus without mention of complication, not stated as uncontrolled Unspecified gastritis and gastroduodenitis without mention of hemorrhage Previous Surgical History PAST SURGICAL HISTORY Procedure Laterality Date COLONOSCOPY 2006 incomplete due to tortuosity of colon COLONOSCOPY FLX DX W/COLLJ SPEC WHEN PFRMD 11/20/2018 Colonoscopy EGD TRANSORAL BIOPSY SINGLE/MULTIPLE 07/20/09 PAST SURGICAL HISTORY OF LLE cyst Family History FAMILY HISTORY Problem Relation Age of Onset Diabetes Mother Diabetes Father Colon Cancer Father Patient Allergies ALLERGIES Allergen Reactions Hazelnut Swelling Facial swelling, hives Pecans [Other] Swelling Hazel Green Swelling Current Medications Current Outpatient Medications on File Prior to Visit Medication Sig lisinopril (ZESTRIL) 20 mg tablet Take 1 tablet by mouth once daily. rosuvastatin (CRESTOR) 10 mg tablet TAKE 1 TABLET BY MOUTH EVERYDAY AT BEDTIME amLODIPine (NORVASC) 10 mg tablet Take 1 tablet by mouth once daily. Zinc 50 mg tab Take 2 tablets by mouth once daily. ascorbic acid, vitamin C, (VITAMIN C) 500 mg tablet Take 1 tablet by mouth once daily. magnesium oxide 400 mg magnesium cap Take 1 capsule by mouth once daily. B Complex-Folic Acid (B COMPLEX 1, WITH FOLIC ACID,) 0.4 mg tab Take 1 tablet by mouth once daily. Cholecalciferol, Vitamin D3, 25 mcg (1,000 unit) cap Take 1 capsule by mouth once daily. OMEGA 3-VITAMIN E-FISH OIL 700 MG-15 UNIT-1,100 MG CAP Take one(1) tablet daily. No current facility-administered medications on file prior to visit. Social History Social History Tobacco Use Smoking status: Former Types: Cigarettes Quit date: 12/06/1992 Years since quittin.5 Smokeless tobacco: Never Vaping Use Vaping Use: Never used Substance Use Topics Alcohol use: No Drug use: No EXAM: BP 130/80 Pulse 74 Resp 16 Ht 185.4 cm (6' 1) Wt 130.3 kg (287 lb 3.2 oz) BMI 37.89 kg/m General Appearance: Well appearing, alert, in no acute distress, well-hydrated, well nourished. and Overweight. Lungs: Lungs clear to auscultation. No wheezing, rhonchi, rales.. Heart: RRR without murmur, gallop, or rubs. No ectopy. Health Maintenance List BP Controlled (<130/80) Never done Hepatitis B Vaccine(1 of 3 - 19+ 3-dose series) Never done Shingrix Vaccine(1 of 2) Never done Behavioral Health Screening Never done Annual PCP Team Chronic Disease Visit due on 06/13/2023 Covid-19 Vaccine( season) due on 06/14/2024 Influenza Vaccine(Season Ended) due on 10/07/2023 Colorectal Cancer Screening due on 11/21/2023 Diabetes Screening due on 06/12/2025 DTaP,Tdap,Td Vaccine(3 - Td or Tdap) due on 03/08/2026 Lipid Screening due on 06/13/2027 Prostate Cancer Screening Discussion due on 06/13/2027 Hepatitis C Screening Completed HIV Screening Completed Data reviewed None ASSESSMENT/PLAN: 1. Wellness examination - ICD9: V70.0, ICD10: Z00.00 (primary diagnosis) - Counseled on healthy diet and regular exercise - Discussed need for and benefit of weight loss. BMI 37.89 kg/(m^2) - Follow up for annual exam in one year 2. Essential hypertension, benign - ICD9: 401.1, ICD10: I10 - Controlled - Continue current medications - Recommend home blood pressure monitoring, to bring results to next visit - Encouraged sodium restriction, DASH or Mediterranean diet - Recommend regular aerobic exercise - Discussed need for and benefit of weight loss. BMI 37.89 kg/(m^2) 3. Mixed hyperlipidemia - ICD9: 272.2, ICD10: E78.2 - Control undetermined, due for labs - Continue current medications - Counseled on healthy diet and regular exercise - Discussed need for and benefit of weight loss. BMI 37.89 kg/(m^2) 4. Impaired fasting glucose - ICD9: 790.21, ICD10: R73.01 Monitor with labs Recommend continued healthy eating and exercise 5. Screening PSA (prostate specific antigen) - ICD9: V76.44, ICD10: Z12.5 - Counseled on healthy diet and regular exercise - Discussed need for and benefit of weight loss. BMI 37.89 kg/(m^2) - Follow up for annual exam in one year Follow up in 1 year or sooner if needed. Will notify of lab results. I agree with the Chief Complaint, ROS, and Past Histories independently gathered by the clinical technician support engineer and the remaining scribed note accurately describes my personal service to the patient. Anibal Peraza MD The documentation for this note was completed by Lala Grissom MA acting as scribe for Anibal Peraza MD. June 15, 2023 1:36 PM. Lala Grissom MA documented in this encounter [facility] 06-01-2023 Telephone encounter Note OK to refill as ordered Anibal Peraza MD [facility] 06-01-2023 Miscellaneous Notes OK to refill as ordered Anibal Peraza MD Patient has been identified by name and date of : Patient phones for refill(s): Requested Prescriptions Pending Prescriptions Disp Refills lisinopril (ZESTRIL) 20 mg tablet 90 tablet 3 Sig: Take 1 tablet by mouth once daily. Date of last office visit in primary care: 06/12/2022 Date of next office visit in primary care: 06/15/2023 Patient has 1 pill left. Please advise. Thank you. Anisa Hidalgo. documented in this encounter [facility] 06-01-2023 Telephone encounter Note Patient has been identified by name and date of : Patient phones for refill(s): Requested Prescriptions Pending Prescriptions Disp Refills lisinopril (ZESTRIL) 20 mg tablet 90 tablet 3 Sig: Take 1 tablet by mouth once daily. Date of last office visit in primary care: 06/12/2022 Date of next office visit in primary care: 06/15/2023 Patient has 1 pill left. Please advise. Thank you. Anisa Hidalgo. [facility] 06-12-2022 Instructions Greta Woodson APRN.CNP - 06/12/2022 12:07 PM EDT Have your labs drawn. documented in this encounter [facility] 06-12-2022 History of Presen t illness Narrative Chief Complaint Patient presents with: Wellness: Needs labs HPI Philomena Olmstead is a 57 year old male who presents here today for Above Complaints.. Philomena is a patient of Dr Peraza who presents for a routine wellness exam and requests his annual labwork. Checks blood pressure at home daily. Does report voiding a lot, but feels emptying fully. No burning. Would like his PSA level checked with his routine labs. Reports at times his lower extremities will get a burning feeling but they aren't painful, tingling, or numb. Past medical history, appointments, medications, allergies reviewed. Previous Medical History PAST MEDICAL HISTORY Diagnosis Date Esophagitis, unspecified Essential hypertension, benign Family history of malignant neoplasm of gastrointestinal tract family history of colon cancer Genital herpes Hemorrhage of rectum and anus Hypertrophy of breast Obesity, unspecified Other and unspecified alcohol dependence, unspecified drinking behavior ETOH depend. syn. Other and unspecified hyperlipidemia Type II or unspecified type diabetes mellitus without mention of complication, not stated as uncontrolled Unspecified gastritis and gastroduodenitis without mention of hemorrhage Previous Surgical History PAST SURGICAL HISTORY Procedure Laterality Date COLONOSCOPY 2006 incomplete due to tortuosity of colon COLONOSCOPY FLX DX W/COLLJ SPEC WHEN PFRMD 11/20/2018 Colonoscopy EGD TRANSORAL BIOPSY SINGLE/MULTIPLE 07/20/09 PAST SURGICAL HISTORY OF LLE cyst Family History FAMILY HISTORY Problem Relation Age of Onset Diabetes Mother Diabetes Father Colon Cancer Father Patient Allergies ALLERGIES Allergen Reactions Hazelnut Swelling Facial swelling, hives Pecans [Other] Swelling Hazel Green Swelling Current Medications Current Outpatient Medications on File Prior to Visit Medication Sig lisinopril (ZESTRIL) 20 mg tablet Take 1 tablet by mouth once daily. amLODIPine (NORVASC) 10 mg tablet TAKE 1 TABLET BY MOUTH ONCE DAILY Zinc 50 mg tab Take 2 tablets by mouth once daily. ascorbic acid, vitamin C, (VITAMIN C) 500 mg tablet Take 1 tablet by mouth once daily. magnesium oxide 400 mg magnesium cap Take 1 capsule by mouth once daily. B Complex-Folic Acid (B COMPLEX 1, WITH FOLIC ACID,) 0.4 mg tab Take 1 tablet by mouth once daily. Cholecalciferol, Vitamin D3, 25 mcg (1,000 unit) cap Take 1 capsule by mouth once daily. OMEGA 3-VITAMIN E-FISH OIL 700 MG-15 UNIT-1,100 MG CAP Take one(1) tablet daily. meloxicam (MOBIC) 15 mg tablet Take 1 tablet by mouth once daily. Take with food. (Patient not taking: Reported on 06/12/2022) aspirin, enteric coated (ADULT ASPIRIN REGIMEN) 81 mg EC tablet Take 1 tablet by mouth once daily. (Patient not taking: Reported on 06/12/2022) No current facility-administered medications on file prior to visit. Social History Social History Tobacco Use Smoking status: Former Types: Cigarettes Quit date: 12/06/1992 Years since quittin.5 Smokeless tobacco: Never Vaping Use Vaping Use: Never used Substance Use Topics Alcohol use: No Drug use: No Review of Symptoms REVIEW OF SYSTEMS See HPI EXAM: BP 136/90 (BP Site: Left Arm, BP Position: Sitting, BP Cuff Size: Regular Adult) Pulse 76 Resp 16 Ht 184 cm (6' 0.44) Wt 130.2 kg (287 lb) SpO2 99% BMI 38.45 kg/m General Appearance: Well appearing, alert, in no acute distress, well-hydrated, well nourished.. Skin: Skin color, texture, turgor normal, no suspicious rashes or lesions. Head: Normocephalic, no masses, lesions, tenderness or abnormalities. Eyes: Anicteric sclera. Pupils are equally round and reactive to light. Extraocular movements are intact. . Ears: External ears normal, TM intact, no drainage Positive findings: cerumen on right, amount Large-TM WNL and canal normal following cerumen removal. Oropharynx: Lips, mucosa, and tongue normal, teeth and gums normal, oropharynx normal. Neck: Supple, no adenopathy; thyroid symmetric, normal size, no bruits. Lungs: Lungs clear to auscultation. No wheezing, rhonchi, rales.. Heart: RRR without murmur, gallop, or rubs. No ectopy. Abdomen: Normal abdominal exam, Abdomen soft, non-tender. Bowel sounds normal. No masses, organomegaly. Musculoskeletal: No joint swelling or tenderness. Peripheral Pulses: Normal. Neurologic: Gait normal. Reflexes normal and symmetric. Sensation grossly intact.. Psychiatric: [facility] Health Maintenance List HEPATITIS B(1 of 3 - 3-dose series) Never done PNEUMOCOCCAL(1 - PCV) Never done BP CONTROLLED (<130/80) Never done SHINGRIX VACCINE(1 of 2) Never done DILATED RETINAL EXAM due on 01/12/2018 URINE ALBUMIN:CREATININE RATIO due on 11/26/2021 DIABETIC FOOT EXAM due on 11/26/2021 DEPRESSION ASSESSMENT Never done HBA1C due on 02/16/2022 COVID-19 VACCINE(1) due on 08/18/2022 LDL CHOLESTEROL due on 08/16/2022 ANNUAL PCP TEAM CHRONIC DISEASE VISIT due on 08/18/2022 INFLUENZA(Season Ended) due on 10/06/2022 COLORECTAL CANCER SCREENING due on 11/21/2023 PROSTATE CANCER SCREENING DISCUSSION due on 02/13/2025 DTAP,TDAP,TD(3 - Td or Tdap) due on 03/08/2026 HEPATITIS C SCREENING Completed HIV SCREENING Completed Data reviewed Previous records, office notes ASSESSMENT/PLAN: 1. Wellness examination - ICD9: V70.0, ICD10: Z00.00 (primary diagnosis) - Counseled on healthy diet and regular exercise - Discussed need for and benefit of weight loss. BMI 38.45 kg/(m^2) - Follow up for annual exam in one year - HGB A1C - COMP METABOLIC PANEL - LIPID PANEL BASIC - PSA FREE - DEPRESSION SCREENING/ASSESSMENT - CBC - TSH BLD - VITAMIN D 25 HYDROXY - VITAMIN B12 BLOOD 2. Essential hypertension, benign - ICD9: 401.1, ICD10: I10 - good control - Recommended regular aerobic exercise. - Recommend home blood pressure monitoring, to bring results in on next visit BP slightly elevated in office today but patient states this does typically happen during office visits. Reports daily BP monitoring and typically in 120's/80's. - Goal of BP <130/80 - HGB A1C - COMP METABOLIC PANEL - LIPID PANEL BASIC - CBC - TSH BLD 3. Impaired fasting glucose - ICD9: 790.21, ICD10: R73.01 A1C 5.8on 03/10/2016. No other records indicating impaired fasting glucose or A1C. Previous dx listed of DM 2, patient is not diabetic. - HGB A1C - COMP METABOLIC PANEL - CBC 4. Mixed hyperlipidemia - ICD9: 272.2, ICD10: E78.2 - to be determined upon return of lab results - Check fasting lipid panel - LIPID PANEL BASIC 5. Hypokalemia - ICD9: 276.8, ICD10: E87.6 - COMP METABOLIC PANEL 6. Screening PSA (prostate specific antigen) - ICD9: V76.44, ICD10: Z12.5 - Counseled on healthy diet and regular exercise - PSA FREE 7. Encounter for vitamin deficiency screening - ICD9: V77.99, ICD10: Z13.21 - VITAMIN D 25 HYDROXY - VITAMIN B12 BLOOD Greta Woodson APRN.CNP documented in this encounter [facility] 06-06-2022 Miscellaneous Notes The following approved medication requests have been transmitted electronically. Requested Prescriptions Pending Prescriptions Disp Refills lisinopril (ZESTRIL) 20 mg tablet 90 tablet 3 Sig: Take 1 tablet by mouth once daily. Aleksey Freed APRN.CNP Last office visit: 08/18/21 F/u scheduled: none Lala Grissom Ma Patient has been identified by name and date of : Yes Requested Prescriptions Pending Prescriptions Disp Refills lisinopril (ZESTRIL) 20 mg tablet 90 tablet 3 Sig: Take 1 tablet by mouth once daily. RX INSTRUCTIONS: Patient aware RX will be sent to pharmacy. No need to notify patient. Kelly Farley Pss documented in this encounter [facility] 06-06-2022 Miscellaneous Notes Pharmacy request denied. Patient needs to contact office for refills. Kelly Joseph MA documented in this encounter [facility] 12-26-2021 Miscellaneous Notes The following approved medication requests have been transmitted electronically. Requested Prescriptions Pending Prescriptions Disp Refills amLODIPine (NORVASC) 10 mg tablet [Pharmacy Med Name: AMLODIPINE BESYLATE 10 MG TAB] 90 tablet 3 Sig: TAKE 1 TABLET BY MOUTH ONCE DAILY Aleksey Freed APRN.AUTO MECHANICS INSTRUCTOR Patient phones requesting refills as follows: Requested Prescriptions Pending Prescriptions Disp Refills amLODIPine (NORVASC) 10 mg tablet [Pharmacy Med Name: AMLODIPINE BESYLATE 10 MG TAB] 90 tablet 3 Sig: TAKE 1 TABLET BY MOUTH ONCE DAILY ADILSON-08/18/21 Labs-08/16/21 NOV-02/21/22 med filled 01/03/21 Please review and advise. Morenita Santizo LPN documented in this encounter [facility] 08-18-2021 History of Presen t illness Narrative Chief Complaint Patient presents with: F/U 6 Month HPI Philomena Olmstead is a 56 year old male who presents here today for a follow up visit. Pt here today for a follow up visit. Last seen in office by Aleksey Freed CNP on 01/25/21, for acute sciatic issues. Wants to have PSA checked. PSA last done 1 year ago 0.33. Has been stable over the past 8 years ranging from 0.31 - 0.41. Feels like he urinates a lot and voids a lot with clear looking urine. DM - Checking sugars once daily with FBS ranging from 100-115. Denies any lows or neuropathy symptoms. Feels he pees really often. Notes some changes in vision, blurred after eating. Unsure what the cause is. Needs to get an eye exam done. HTN - Checks BP at home, generally WNL. Denies any chest pain, sob or dizziness. On current regimen of Lisinopril 20 mg once daily and Amlodipine 10 mg once daily. Lipids - Tries to watch diet and stay active. Currently taking Welch 3 Fatty Acid. Was previously on statin medication. Notes some left sided arm weakness or atrophy in his muscle over the past month. Unsure if this is related to his potassium. 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 Will have to over compensate with his right arm. HM - Declines Covid vaccines. Past medical history, appointments, medications, allergies reviewed. Previous Medical History PAST MEDICAL HISTORY Diagnosis Date Esophagitis, unspecified Essential hypertension, benign Family history of malignant neoplasm of gastrointestinal tract family history of colon cancer Genital herpes Hemorrhage of rectum and anus Hypertrophy of breast Obesity, unspecified Other and unspecified alcohol dependence, unspecified drinking behavior ETOH depend. syn. Other and unspecified hyperlipidemia Type II or unspecified type diabetes mellitus without mention of complication, not stated as uncontrolled Unspecified gastritis and gastroduodenitis without mention of hemorrhage Previous Surgical History PAST SURGICAL HISTORY Procedure Laterality Date COLONOSCOP W/ OR W/O BRS SPEC 11/20/2018 Colonoscopy COLONOSCOPY 2006 incomplete due to tortuosity of colon EGD W/O BRS SPECIMEN W/BX 07/20/09 PAST SURGICAL HISTORY OF LLE cyst Family History FAMILY HISTORY Problem Relation Age of Onset Diabetes Mother Diabetes Father Colon Cancer Father Patient Allergies ALLERGIES Allergen Reactions Hazelnut Swelling Facial swelling, hives Pecans [Other] Swelling Hazel Green Swelling Current Medications Current Outpatient Medications on File Prior to Visit Medication Sig lisinopril (ZESTRIL, PRINIVIL) 20 mg tablet TAKE 1 TABLET BY MOUTH EVERY DAY meloxicam (MOBIC) 15 mg tablet Take 1 tablet by mouth once daily. Take with food. amLODIPine (NORVASC) 10 mg tablet Take 1 tablet by mouth once daily. Zinc 50 mg tab Take 2 tablets by mouth once daily. (Patient not taking: Reported on 11/26/2020 ) ascorbic acid, vitamin C, (VITAMIN C) 500 mg tablet Take 1 tablet by mouth once daily. magnesium oxide 400 mg magnesium cap Take 1 capsule by mouth once daily. B Complex-Folic Acid (B COMPLEX 1, WITH FOLIC ACID,) 0.4 mg tab Take 1 tablet by mouth once daily. Cholecalciferol, Vitamin D3, 25 mcg (1,000 unit) cap Take 1 capsule by mouth once daily. aspirin, enteric coated (ADULT ASPIRIN REGIMEN) 81 mg EC tablet Take 1 tablet by mouth once daily. OMEGA 3-VITAMIN E-FISH OIL 700 MG-15 UNIT-1,100 MG CAP Take one(1) tablet daily. No current facility-administered medications on file prior to visit. Social History Social History Tobacco Use Smoking status: Former Smoker Quit date: 12/06/1992 Years since quittin.7 Smokeless tobacco: Never Used Vaping Use Vaping Use: Never used Substance Use Topics Alcohol use: No Drug use: No EXAM: BP 124/82 (BP Site: Left Arm, BP Position: Sitting, BP Cuff Size: Regular Adult) Pulse 72 Resp 16 Wt 131.8 kg (290 lb 9.6 oz) BMI 39.36 kg/m General Appearance: Well appearing, alert, in no acute distress, well-hydrated, well nourished. and Obese. Lungs: Lungs clear to auscultation. No wheezing, rhonchi, rales.. Heart: RRR without murmur, gallop, or rubs. No ectopy. Extremities: Left arm area evaluated. Some tenderness in distal biceps with bending. Health Maintenance List COVID-19 VACCINE(1) Never done - Declined PNEUMOCOCCAL(1 - PCV) Never done BP CONTROLLED (<130/80) Never done HEPATITIS B(1 of 3 - Risk 3-dose series) Never done SHINGRIX VACCINE(1 of 2) Never done DILATED RETINAL EXAM due on 01/12/2018 HBA1C due on 05/27/2021 INFLUENZA(1) due on 10/06/2021 URINE ALBUMIN:CREATININE RATIO due on 11/26/2021 LDL CHOLESTEROL due on 11/26/2021 DIABETIC FOOT EXAM due on 11/26/2021 DEPRESSION SCREENING due on 11/26/2021 ANNUAL PCP TEAM CHRONIC DISEASE VISIT due on 01/25/2022 COLORECTAL CANCER SCREENING due on 11/21/2023 PROSTATE CANCER SCREENING DISCUSSION due on 02/13/2025 DTAP,TDAP,TD(3 - Td or Tdap) due on 03/08/2026 HEPATITIS C SCREENING Completed HIV SCREENING Completed Data reviewed Results Only on 08/16/2021 Component Date Value Cholesterol, Total 08/16/2021 198 Triglyceride 08/16/2021 38 HDL Cholesterol 08/16/2021 62 Non HDL Cholesterol 08/16/2021 136 (A) Fasting Time 08/16/2021 14 VLDL Cholesterol 08/16/2021 8 TC:HDL Ratio 08/16/2021 3.19 LDL Cholesterol 08/16/2021 128 (A) LDL:HDL Ratio 08/16/2021 2.06 Protein, Total 08/16/2021 7.7 Albumin 08/16/2021 4.3 Calcium, Total 08/16/2021 9.3 Bilirubin, Total 08/16/2021 0.7 Alkaline Phosphatase 08/16/2021 64 AST 08/16/2021 26 ALT 08/16/2021 24 Glucose 08/16/2021 132 (A) BUN 08/16/2021 11 Creatinine 08/16/2021 0.96 Sodium 08/16/2021 137 Potassium 08/16/2021 3.8 Chloride 08/16/2021 101 CO2 08/16/2021 26 Anion Gap 08/16/2021 10 Estimated Glomerular Armand* 08/16/2021 93 Hemoglobin A1C 08/16/2021 5.3 Estimated Average Glucose 08/16/2021 105 ASSESSMENT/PLAN: 1. Type 2 diabetes mellitus without complication, without long-term current use of insulin (HCC) - ICD9: 250.00, ICD10: E11.9 (primary diagnosis) Controlled. - Blood glucose monitoring, continue. - Get appt for eye exam, due to some vision issues. 2. Essential hypertension, benign - ICD9: 401.1, ICD10: I10 - good control - Continue current medication(s) - Recommended regular aerobic exercise. - Recommend home blood pressure monitoring, to bring results in on next visit - Goal of BP <130/80 3. Mixed hyperlipidemia - ICD9: 272.2, ICD10: E78.2 - good control - Encouraged following a low fat, low cholesterol diet. - Discussed the benefits of regular aerobic exercise and weight loss. 4. Hypokalemia - ICD9: 276.8, ICD10: E87.6 - Stable 5. Screening PSA (prostate specific antigen) - ICD9: V76.44, ICD10: Z12.5 - Check PSA in 6 months - Ok to check every 1-2 years 6. Wellness examination - ICD9: V70.0, ICD10: Z00.00 - Will schedule for 6 months 7. Strain of left biceps, initial encounter - ICD9: 840.8, ICD10: S46.212A - Heat - Give time to heal, try to reduce heavy lifting if able 6 mo f/u/Wellness with labs. I agree with the Chief Complaint, ROS, and Past Histories independently gathered by the clinical technician support engineer and the remaining scribed note accurately describes my personal service to the patient. Medical Decision Making: Problems: Moderate: 2+ stable chronic illnesses Data: Unique test result(s) reviewed: 3+ Unique test(s) ordered: 3+ Risk: Moderate: Drug management Medical Decision Making Level: 4 - Moderate Anibal Peraza MD The documentation for this note was completed by Marcella Tan Ma acting as scribe for Anibal Peraza MD. August 18, 2021 12:05 PM. Marcella Tan Ma documented in this encounter [facility] 06-06-2021 Miscellaneous Notes The following approved medication requests have been transmitted electronically. Pending Prescriptions Disp Refills LISINOPRIL 20 MG TABLET 90 tablet 3 Sig: TAKE 1 TABLET BY MOUTH EVERY DAY LATISHA: Yes Aleksey Freed APRN.STEWART Patient phones requesting refills as follows: Pending Prescriptions Disp Refills LISINOPRIL 20 MG TABLET 90 tablet 3 Sig: TAKE 1 TABLET BY MOUTH EVERY DAY LATISHA: Yes ADILSON-01/25/21 NOV-11/26/20 NOV-none med filled 06/15/20 Please review and advise. Morenita Santizo LPN documented in this encounter [facility] 09-28-2014 History of Past i llness Narrative Problem Noted Date Resolved Date Type 2 diabetes mellitus wit hout complication, without long-term current use of insulin 09/28/2014 06/12/2022 Esophageal reflux 05/03/2005 02/28/2006 Type II or unspecified type diabetes mellitus without mention of complication, not stated as uncontrolled Hypertrophy of breast 02/28/2006 Other and unspecified alcoho l dependence, unspecified drinking behavior 02/28/2006 Overview: ETOH depend. syn. documented as of this encounter (statuses as of 06/12/2022) [facility] History of Past illness Narrative* Problem Noted Date Resolved Date Esophageal reflux 05/03/2005 02/28/2006 Type II or unspecified type diabetes mellitus without mention of complication, not stated as uncontrolled Hypertrophy of breast 02/28/2006 Other and unspecified alcoho l dependence, unspecified drinking behavior 02/28/2006 Overview: ETOH depend. syn. documented as of this encounter (statuses as of 06/06/2021) [facility] History of Past illness Narrative* Problem Noted Date Resolved Date Esophageal reflux 05/03/2005 02/28/2006 Type II or unspecified type diabetes mellitus without mention of complication, not stated as uncontrolled Hypertrophy of breast 02/28/2006 Other and unspecified alcoho l dependence, unspecified drinking behavior 02/28/2006 Overview: ETOH depend. syn. documented as of this encounter (statuses as of 08/18/2021) [facility] History of Past illness Narrative* Problem Noted Date Resolved Date Esophageal reflux 05/03/2005 02/28/2006 Type II or unspecified type diabetes mellitus without mention of complication, not stated as uncontrolled Hypertrophy of breast 02/28/2006 Other and unspecified alcoho l dependence, unspecified drinking behavior 02/28/2006 Overview: ETOH depend. syn. documented as of this encounter (statuses as of 12/26/2021) [facility] History of Past illness Narrative* Problem Noted Date Resolved Date Esophageal reflux 05/03/2005 02/28/2006 Type II or unspecified type diabetes mellitus without mention of complication, not stated as uncontrolled Hypertrophy of breast 02/28/2006 Other and unspecified alcoho l dependence, unspecified drinking behavior 02/28/2006 Overview: ETOH depend. syn. documented as of this encounter (statuses as of 06/06/2022) [facility] History of Past illness Narrative* Problem Noted Date Resolved Date Esophageal reflux 05/03/2005 02/28/2006 Type II or unspecified type diabetes mellitus without mention of complication, not stated as uncontrolled Hypertrophy of breast 02/28/2006 Other and unspecified alcoho l dependence, unspecified drinking behavior 02/28/2006 Overview: ETOH depend. syn. documented as of this encounter (statuses as of 06/06/2022) [facility] Diagnosis Type 2 diabetes mellitus without complication, without long-term current use of insulin (HCC)- Primary Essential hypertension, benign Mixed hyperlipidemia Hypokalemia Hypopotassemia Screening PSA (prostate specific antigen) Special screening for malignant neoplasm of prostate Wellness examination Strain of left biceps, initial encounter documented [facility] this encounter [facility] Diagnosis Wellness examination- Primary Essential hypertension, benign Impaired fasting glucose Mixed hyperlipidemia Hypokalemia Hypopotassemia Screening PSA (prostate specific antigen) Special screening for malignant neoplasm of prostate Encounter for vitamin deficiency screening Screening for other and unspecified endocrine, nutritional, metabolic, and immunity disorders documented [facility] this encounter [facility] Diagnosis Wellness examination- Primary Essential hypertension, benign Mixed hyperlipidemia Impaired fasting glucose Screening PSA (prostate specific antigen) Special screening for malignant neoplasm of prostate Vitamin D deficiency Unspecified vitamin D deficiency [facility] Diagnosis Vitamin D deficiency- Primary Unspecified vitamin D deficiency Mixed hyperlipidemia Wellness examination Impaired fasting glucose Screening PSA (prostate specific antigen) Special screening for malignant neoplasm of prostate Essential hypertension, benign [facility] this encounter [facility] Diagnosis Rash- Primary Rash and other nonspecific skin eruption [facility] this encounter [facility] Diagnosis Herpes genitalis in men Genital herpes, unspecified documented in this encounter [facility] Summary Purpose Family History No Family History Records FoundNo Family History Records Found Advance Directives No Advanced Directives Records FoundNo Advanced Directives Records Found Additional Source Comments Source Comments (unrecognize d section and content) In the event this informatio n is protected by the Federal Confidentiality of Alcohol and Drug Abuse Patient Records regulations: The Federal rules restrict any use of the information to criminally investigate or prosecute any alcohol or drug abuse patient.[facility] the event this information is protected by the Federal Confidentiality of Alcohol and Drug Abuse Patient Records regulations: The Federal rules restrict any use of the information to criminally investigate or prosecute any alcohol or drug abuse patient.[facility] the event this information is protected by the Federal Confidentiality of Alcohol and Drug Abuse Patient Records regulations: The Federal rules restrict any use of the information to criminally investigate or prosecute any alcohol or drug abuse patient.[facility] the event this information is protected by the Federal Confidentiality of Alcohol and Drug Abuse Patient Records regulations: The Federal rules restrict any use of the information to criminally investigate or prosecute any alcohol or drug abuse patient.[facility] Center[facility] the event this information is protected by the Federal Confidentiality of Alcohol and Drug Abuse Patient Records regulations: The Federal rules restrict any use of the information to criminally investigate or prosecute any alcohol or drug abuse patient.[facility] Center[facility] the event this information is protected by the Federal Confidentiality of Alcohol and Drug Abuse Patient Records regulations: The Federal rules restrict any use of the information to criminally investigate or prosecute any alcohol or drug abuse patient.[facility] Center[facility] the event this information is protected by the Federal Confidentiality of Alcohol and Drug Abuse Patient Records regulations: The Federal rules restrict any use of the information to criminally investigate or prosecute any alcohol or drug abuse patient.[facility] Center[facility] the event this information is protected by the Federal Confidentiality of Alcohol and Drug Abuse Patient Records regulations: The Federal rules restrict any use of the information to criminally investigate or prosecute any alcohol or drug abuse patient.[facility] Center[facility] the event this information is protected by the Federal Confidentiality of Alcohol and Drug Abuse Patient Records regulations: The Federal rules restrict any use of the information to criminally investigate or prosecute any alcohol or drug abuse patient.[facility] Center[facility] the event this information is protected by the Federal Confidentiality of Alcohol and Drug Abuse Patient Records regulations: The Federal rules restrict any use of the information to criminally investigate or prosecute any alcohol or drug abuse patient.[facility] CenterIn the event this information is protected by the Federal Confidentiality of Alcohol and Drug Abuse Patient Records regulations: The Federal rules restrict any use of the information to criminally investigate or prosecute any alcohol or drug abuse patient.[facility] CenterIn the event this information is protected by the Federal Confidentiality of Alcohol and Drug Abuse Patient Records regulations: The Federal rules restrict any use of the information to criminally investigate or prosecute any alcohol or drug abuse patient.[facility] CenterIn the event this information is protected by the Federal Confidentiality of Alcohol and Drug Abuse Patient Records regulations: The Federal rules restrict any use of the information to criminally investigate or prosecute any alcohol or drug abuse patient.[facility] CenterIn the event this information is protected by the Federal Confidentiality of Alcohol and Drug Abuse Patient Records regulations: The Federal rules restrict any use of the information to criminally investigate or prosecute any alcohol or drug abuse patient.[facility] CenterIn the event this information is protected by the Federal Confidentiality of Alcohol and Drug Abuse Patient Records regulations: The Federal rules restrict any use of the information to criminally investigate or prosecute any alcohol or drug abuse patient.[facility] CenterIn the event this information is protected by the Federal Confidentiality of Alcohol and Drug Abuse Patient Records regulations: The Federal rules restrict any use of the information to criminally investigate or prosecute any alcohol or drug abuse patient.[facility] CenterIn the event this information is protected by the Federal Confidentiality of Alcohol and Drug Abuse Patient Records regulations: The Federal rules restrict any use of the information to criminally investigate or prosecute any alcohol or drug abuse patient.[facility] CenterIn the event this information is protected by the Federal Confidentiality of Alcohol and Drug Abuse Patient Records regulations: The Federal rules restrict any use of the information to criminally investigate or prosecute any alcohol or drug abuse patient.[facility] Reason for Visit (unrecogniz ed section and content) Reason Comments Refill Request Reason Comments F/U 6 Month Reason Onset Date Comments Refill Request 06/06/2022 Reason Comments Wellness Needs labs Reason Comments Physical Reason Comments Results Reason Onset Date Comments Refill Request 06/28/2023 Reason Onset Date Comments Refill Request 06/01/2023 Reason Onset Date Comments Refill Request 12/24/2023 Reason Comments rash on rt side uper chest no pain aditi red for shingles Reason Onset Date Comments Refill Request 05/27/2024 Reason Onset Date Comments Refill Request 06/16/2024 Reason Onset Date Comments Refill Request 07/01/2024 Care Teams (unrecognized sec tion and content) Director E Learning Relationship Specialty Start Date End Date Anibal Peraza MD [address] [place] [address] PCP - General 04/12/07 Director E Learning Relationship Specialty Start Date End Date Anibal Peraza MD [address] [place] [address] PCP - General 04/12/07 Director E Learning Relationship Specialty Start Date End Date Anibal Peraza MD [address] [place] [address] PCP - General 04/12/07 Director E Learning Relationship Specialty Start Date End Date Anibal Peraza MD [address] [place] [address] PCP - General 04/12/07 Director E Learning Relationship Specialty Start Date End Date Anibal Peraza MD [address] [place] [address] PCP - General 04/12/07 Director E Learning Relationship Specialty Start Date End Date Anibal Peraza MD [facility] [place] [address] PCP - General 04/12/07 Director E Learning Relationship Specialty Start Date End Date Anibal Peraza MD [address] [place] [address] PCP - General 04/12/07 Director E Learning Relationship Specialty Start Date End Date Anibal Peraza MD [address] [place] [address] PCP - General 04/12/07 Director E Learning Relationship Specialty Start Date End Date Anibal Peraza MD [address] [place] [address] PCP - General 04/12/07 Director E Learning Relationship Specialty Start Date End Date Anibal Peraza MD [address] [place] [address] PCP - General 04/12/07 Director E Learning Relationship Specialty Start Date End Date Anibal Peraza MD [address] [place] [address] PCP - General 04/12/07 Director E Learning Relationship Specialty Start Date End Date Anibal Peraza MD [address] [place] [address] PCP - General 04/12/07 Director E Learning Relationship Specialty Start Date End Date Anibal Peraza MD [address] [place] [address] PCP - General 04/12/07 Lianet Mata APRN.AUTO MECHANICS INSTRUCTOR [address] [place] [address] Park Maintenance Technician Family Medicine 01/13/24 Aleksey Freed APRN.AUTO MECHANICS INSTRUCTOR [address] [place] [address] Park Maintenance Technician Family Medicine 01/22/24 Director E Learning Relationship Specialty Start Date End Date Anibal Peraza MD [address] [place] [address] PCP - General 04/12/07 Lianet Mata APRN.AUTO MECHANICS INSTRUCTOR [address] [place] [address] Park Maintenance Technician Family Medicine 01/13/24 Aleksey Freed APRN.AUTO MECHANICS INSTRUCTOR [address] [place] [address] Park Maintenance Technician Family Medicine 01/22/24 Director E Learning Relationship Specialty Start Date End Date Anibal Peraza MD [address] [place] [address] PCP - General 04/12/07 Lianet Mata APRN.AUTO MECHANICS INSTRUCTOR [address] [place] [address] Park Maintenance Technician Family Medicine 01/13/24 Aleksey Freed APRN.AUTO MECHANICS INSTRUCTOR [address] [place] [address] Park Maintenance Technician Family Medicine 01/22/24 Director E Learning Relationship Specialty Start Date End Date Anibal Peraza MD [address] [place] [address] PCP - General 04/12/07 Lianet Mata APRN.AUTO MECHANICS INSTRUCTOR [address] [place] [address] Park Maintenance Technician [facility] 01/13/24 Aleksey Freed APRN.AUTO MECHANICS INSTRUCTOR [address] [place], [place] [address] Park Maintenance Technician [facility] 01/22/24 Director E Learning Relationship Specialty Start Date End Date Anibal Peraza MD [address] [place], [place] [id number] PCP - General 04/12/07 Aleksey Freed APRN.AUTO MECHANICS INSTRUCTOR [address] [place], [place] [address] Park Maintenance Technician [facility] 01/22/24 (unrecognized sect ion and content) No Status Records FoundNo Status Records Found INFORMATION SOURCE (unrecogn ized section and content) DATE CREATED AUTHOR 11/29/2021 [facility] DATE CREATED AUTHOR AUTHOR'S ORGANIZ ATION 11/26/2024 [facility] FOR RECORDS PERTAINING TO PATIENTS WHO ARE OR HAVE BEEN ENROLLED IN A CHEMICAL DEPENDENCY/SUBSTANCEABUSE PROGRAM, SOME INFORMATION MAY BE OMITTED. This clinical summary was aggregated from multiple sources. Caution should be exercised in using it in the provision of clinical care. This summary normalizes information from multiple sources, and as a consequence, information in this document may materially change the coding, format and clinical context of patient data. In addition, data may be omitted in some cases. CLINICAL DECISIONS SHOULD BE BASED ON THE PRIMARY CLINICAL RECORDS. [employer] provides no warranty or guarantee of the accuracy or completeness of information in this document.
[2024-12-02 06:43] VITALS: PULSE 71; RESP 16
[2024-12-02 07:49] VITALS: BP 134/75; PULSE 69; RESP 16; TEMP 36.6; O2SAT 97
--- NOTE | 2024-12-02 08:07 | EDS_ITS ---
HPI History of Present Illness Chief Complaint: Allergic Reaction Informant: patient Narrative Narrative: Patient states she has a past medical history of hypertension for which she takes amlodipine and lisinopril for as well as type 2 diabetes. He states that he is also allergic to tree nuts and a week or so ago he had a reaction to this and was placed on steroid. He states it helped his reaction but also elevated his blood sugar which concerned him because of his diabetes. He states therefore he stopped the steroids and reduced his food intake. He reports that his sugars return to baseline and the allergic reaction symptoms remained resolved. He states he awoke this morning around 5 AM and noticed there was faint irritation and swelling to the right side of his upper lip. He states he took his morning medication which includes his lisinopril and then he began to have swelling across the entire upper lip as well as lower lip. He states symptoms have been present for over 1 hour and he denies any difficulty breathing or swallowing or change in voice. He states has been no new exposure that he knows of but with the swelling/reaction he presents for evaluation [facility] Medical History (Updated 12/03/24 @ 03:[address] Roger Foster, DO) Diabetes type 2 Home Medications ?Medication ?Instructions ?Recorded ?Last Taken ?Type amlodipine 5 mg tablet 10 mg PO DAILY htn 04/12/15 Unknown History lisinopril 20 mg tablet 20 mg PO DAILY htn 04/12/15 Unknown History atorvastatin 10 mg tablet 10 mg PO QHS 11/19/18 Unknow n History doxycycline hyclate 100 mg tablet 100 mg PO BID #14 ta bs 10/27/19 Unknown Rx Allergy/AdvReac Type Severity Reaction Status Date / Time nut - unspecified Allergy Anaphylaxis Verified 12/02/24 05:51 pecan nut (pecans) Allergy Anaphylaxis Verified 12/02/24 05:51 Social History Smoking Status: Never smoker ROS ROS ED Constitutional Constitutional ED: Denies chills or fever(s) Eyes Eyes: Denies change in vision ENT ENT ED: Reports other Details: Positive upper and lower lip swelling ; Denies sore throat Cardiovascular Cardiovascular: Denies chest pain Respiratory/Chest Respiratory/Chest: Denies cough or dyspnea Gastrointestinal Gastrointestinal: Denies abdominal pain, diarrhea, nausea or vomiting Musculoskeletal Musculoskeletal: Denies myalgias Integumentary Denies rash Neurologic Neurologic: Denies headache(s) Hematologic/Lymphatic Hematologic/Lymphatic: Denies easy bleeding or easy bruising Allergic/Immunologic Allergic/Immunologic ED: Reports mouth swelling; Denies tongue swelling EXAM Physical Exam Const Vital Signs: 12/02/24 05:52 12/02/24 06:43 12/02/24 07:49 Temperature 98.6 F 98 F Temperature Source Oral Pulse Rate 70 71 69 Respiratory Rate 18 16 16 Respiratory Pattern Normal Blood Pressure 143/92 H 134/75 H Blood Pressure Mean 109 94 Pulse Ox 100 97 Oxygen Delivery Method Room Air Positive well nourished, well developed and obese General Appearance ED: well developed; Negative for pallor Nutritional Appearance: obese HEENT HEENT Narrative: Normocephalic atraumatic There is soft tissue swelling of the upper and lower lip greatest on the upper lip No tongue swelling noted No oral lesions present No change in voice No airway edema or compromise Eyes PERRL and EOMs intact bilaterally Neck supple Resp normal respiratory effort and clear to auscultation bilaterally Resp Narrative: No nasal flaring retractions tachypnea or accessory muscle use Cardio regular rate and regular rhythm Extremity normal to inspection Neuro oriented x3, CN's II-XII intact bilaterally and no sensory deficits noted Sensorium / Orientation: alert Motor Exam: strength 5/5 throughout Psych mental status grossly normal Skin no rashes or lesions noted General Skin Exam: Negative for jaundice or pallor MDM MDM MDM Narrative Medical decision making narrative: Patient arrived to the ER slightly hypertensive but has a past medical history of this. He reported his lips began to swell shortly after taking his morning medication. As there was no report of exposure to tree nuts and no signs of systemic reaction I do feel that the soft tissue swelling of the lips is related to angioedema from the lisinopril. In order to ensure that there is no progression to difficulty breathing or need for airway stabilization I did elect to provide IV Pepcid and Benadryl as well as IM epinephrine. Patient was also given aerosolized TXA as this has been shown to help angioedema. After receiving the medication the patient did have mild improvement of his lip swelling. More importantly however there was no progression to tongue swelling or airway compromise. The patient has had roughly 3 hours of symptoms without progression to difficulty breathing or swallowing and therefore I have low concern that it will progress. The patient was advised that lisinopril is the most likely culprit for the angioedema and he needs to stop the drug and talk to his family doctor about what other additional medication he wants him on for blood pressure control. However at this time as he does not have signs of respiratory distress or airway compromise and the edema has not worsened he is otherwise safe for discharge History & Record Review Discussion w/independent historian: Patient Discharge Plan Triage Chief Complaint: Allergic Reaction ED Provider: Roger Foster Dx/Rx/DC Orders Clinical Impression: Angioedema, Hypertension, Diabetes mellitus type 2, noninsulin dependent Instructions: ED Angioedema Prescriptions: No Action lisinopril 20 MG tablet 20 mg PO DAILY amlodipine 5 MG tablet 10 mg PO DAILY atorvastatin 10 MG tablet 10 mg PO QHS doxycycline hyclate 100 mg tablet 100 mg PO BID Qty: 14 0RF Primary Care Provider: Adam Ralph Referrals: Adam Ralph MD [Primary Care Provider, Family Practice] Activity Restrictions/Additional Instructions: Please stop your lisinopril and inform your family doctor about the reaction to the medication. Discussed with your doctor if they want another medication on board for your blood pressure or simply to just take the Norvasc/amlodipine. If you develop a change in voice difficulty breathing or swallowing return to the hospital for repeat evaluation Print Language: Persian Disposition Disposition: Home, Self Care Discharge Date/Time: 12/02/24 08:11
== END 2024-12-02 08:11 | disposition home or self-care (01) ==
PROVIDERS: Emergency Provider Emergency Medicine; PCP Family Medicine; Visit Provider Emergency Medicine
DX: T78.3XXA Angioneurotic edema, initial encounter (principal); E11.9 Type 2 diabetes mellitus without complications; I10 Essential (primary) hypertension; Z79.899 Other long term (current) drug therapy; E66.9 Obesity, unspecified
CPT/HCPCS: 94640; 96374; 99282; A4216